=== PATIENT | female | born 1940 | race Caucasian/White ===

== ENCOUNTER 2018-08-17 01:32 | Outpatient (CLI) | payer MEDICARE, OTHER, SELFPAY ==
--- NOTE | 2018-08-17 13:46 | DI.MAMMO_ITS ---
SYMPTOMS/DIAGNOSIS: PERSONAL H/O BREAST CA, Z85.3, FAMILY H/O BREAST CA, SCREENING BILATERAL SCREENING MAMMOGRAM: Mammograms were interpreted according to the usual protocol including computer analysis with CAD system, tomosynthesis and C view imaging. Comparison is made with exams from 2009 through 2018. The patient is status post bilateral mastectomy. Breast implants are again noted, which appear intact. No masses or suspicious calcifications are seen. IMPRESSION: Category 1A, negative mammogram. Yearly screening mammography is recommended. [facility] ASSESSMENT OF FINDINGS: Negative. Category 1. Patient will receive a letter notifying them of these results. BI-RAD category A. The breasts are almost entirely fatty.
[2018-08-17 14:13] LABS: Absolute Basophil Count 0.01 k/cumm (0.0-0.2); Absolute Eosinophil Count 0.03 k/cumm (0.0-0.7); Absolute Lymphocyte Count 1.21 k/cumm (1.2-3.4); Absolute Monocyte Count 0.28 k/cumm (0.11-0.7); Absolute Neutrophil Count 2.49 k/cumm (1.2-6.7); Basophils % 0.2; Eosinophils % 0.7; HCT 40.1 % (36.0-46.0); HGB 12.9 g/dL (12.0-15.5); Lymphocytes % 30.1; Mean Corp. HGB Concentration 32.2 g/dL (32.0-36.0); Mean Corpuscular Hemoglobin 30.3 pg (27.0-33.0); Mean Corpuscular Volume 94.1 fL (80-95); Mean Platelet Volume 10.5 fL (8.0-11.0); Platelet Count 183 x1000/uL (130-400); RBC 4.26 m/cumm (4.00-5.20); RBC Distribution Width 12.8 % (11.7-14.6); White Blood Cell Count 4.02 k/cumm (4.4-10.8)
[2018-08-17 14:48] LABS: ESR 10 MM/HR (0-30)
[2018-08-17 16:15] LABS: Iron 104 ug/dL (50-175); Total Iron Binding Capacity 292 ug/dL (250-450); Transferrin Sat 36 % (15-50)
[2018-08-17 16:29] LABS: ALT 24 U/L (12-78); AST 20 U/L (15-37); Albumin 3.6 g/dL (3.4-5.0); Alkaline Phosphatase 85 U/L (46-116); Anion Gap 8.9 mmol/L (3-11); BUN 19 mg/dL (7-18); Bilirubin, Total 0.4 mg/dL (0.2-1.0); CO2 31.1 mmol/L (21.0-32.0); CREATININE 0.88 mg/dL (0.55-1.02); Calcium 9.9 mg/dL (8.5-10.1); Chloride 103 mmol/L (98-107); Ferritin 128 ng/mL (8-388); Glucose 130 mg/dL (70-100); Potassium 4.2 mmol/L (3.5-5.1); Sodium 143 mmol/L (136-145); TSH 0.57 uIU/mL (0.358-3.74); Total Protein 6.6 g/dL (6.4-8.2)
== END 2018-08-17 01:52 ==
PROVIDERS: PCP Family Medicine; Visit Provider Family Medicine
DX: Z12.31 Encounter for screening mammogram for malignant neoplasm of breast (principal); Z85.3 Personal history of malignant neoplasm of breast; D36.9 Benign neoplasm, unspecified site; R53.83 Other fatigue; R63.4 Abnormal weight loss
CPT/HCPCS: 36415; 77063; 77067; 80053; 85652; 82728; 83540; 83550; 84443; 85025

== ENCOUNTER 2018-11-02 08:52 | Outpatient (CLI) | payer MEDICARE, OTHER, SELFPAY ==
[2018-11-02 13:32] LABS: TSH (W/Ref FT4) 0.53 uIU/mL (0.358-3.74)
[2018-11-02 21:01] LABS: T3, Total 111 ng/dl (97-169)
== END 2018-11-02 09:12 ==
PROVIDERS: PCP Family Medicine; Visit Provider Family Medicine
DX: E04.9 Nontoxic goiter, unspecified (principal)
CPT/HCPCS: 36415; 84443; 84480

== ENCOUNTER 2019-08-09 11:37 | Outpatient (CLI) | payer MEDICARE, OTHER, SELFPAY ==
[2019-08-09 13:17] LABS: ALT 24 U/L (14-59); AST 22 U/L (15-37); Albumin 3.8 g/dL (3.4-5.0); Alkaline Phosphatase 83 U/L (46-116); Anion Gap 6.5 mmol/L (3-11); BUN 17 mg/dL (7-18); Bilirubin, Total 0.4 mg/dL (0.2-1.0); CO2 34.5 mmol/L (21.0-32.0); CREATININE 0.75 mg/dL (0.55-1.02); Calcium 9.6 mg/dL (8.5-10.1); Chloride 103 mmol/L (98-107); Glucose 89 mg/dL (74-106); Potassium 4.4 mmol/L (3.5-5.1); Sodium 144 mmol/L (136-145); TSH 0.59 uIU/mL (0.36-3.74); Total Protein 6.5 g/dL (6.4-8.2)
== END 2019-08-09 11:57 ==
PROVIDERS: PCP Family Medicine; Visit Provider Family Medicine
DX: R63.4 Abnormal weight loss (principal); R55 Syncope and collapse
CPT/HCPCS: 36415; 80053; 84443

== ENCOUNTER 2020-01-04 01:55 | Outpatient (CLI) | payer MEDICARE, OTHER, SELFPAY ==
--- NOTE | 2020-01-04 07:30 | DI.MAMMO_ITS ---
EXAM: MG MAMMO SCREENING 60 MIN DUR CLINICAL HISTORY: breast cancer screening, PERSONAL H/O BREAST CAZ85.3,Z12.39 TECHNIQUE: Mammograms were interpreted according to the usual protocol including computer analysis w [facility] CAD system, tomosynthesis and C-view imaging. COMPARISON: FINDINGS: There are bilateral mammary implants which obscure nearly all the breast parenchyma bilaterally. We were unable to obtained implant displaced views due to the severity small quantity remaining breast t issue. No gross mass or clumped microcalcification identified on the views obtained. No gross inter puja change from prior studies including August 2018 IMPRESSION: Limited view of remaining breast parenchyma due to bilateral mammary implants. No gross mass identif ied. BI-RADS Category 1 - Negative Breast Density - Category B - Scattered areas of fibroglandular density
== END 2020-01-04 02:15 ==
PROVIDERS: PCP Family Medicine; Visit Provider Family Medicine
DX: Z12.31 Encounter for screening mammogram for malignant neoplasm of breast (principal); Z85.3 Personal history of malignant neoplasm of breast; Z98.82 Breast implant status
CPT/HCPCS: 77063; 77067

== ENCOUNTER 2021-01-06 02:05 | Outpatient (CLI) | payer OTHER, SELFPAY ==
--- NOTE | 2021-01-06 07:45 | DI.MAMMO_ITS ---
Exam(s) MG MAMMO SCREENING 60 MIN DUR EXAM: MG MAMMO SCREENING 60 MIN DUR CLINICAL HISTORY: breast cancer screening, hx malignant neoplasm breast, Z85.3. TECHNIQUE: Bilateral full field digital CC and MLO mammographic images were obtained with 3D tomosyn thesis and utilizing computer aided detection (CAD). COMPARISON: Prior mammograms dating back to 2010, the most recent being December 2019.. We were unable to obtain implant displacement views due to this severely small quantity remaining heri ast tissue in this patient has had prior bilateral mastectomies. FINDINGS: Bilateral retropectoral silicone implants again noted. Some capsular calcifications seen left side There are no new obvious spiculated masses nor malignant appearing microcalcification groups. There is no new significant architectural distortion nor skin thickening-retraction. IMPRESSION: Limited study as described above. No obvious radiographic evidence of malignancy. BI-RADS Category 1 - Negative Breast Density - Category B - Scattered areas of fibroglandular density Breast density Category C or D implies that the patient has dense breast tissue. Dense breast tissue can make it harder to find cancer on a mammogram. Dense breast tissue is also associated with an incr eased risk of breast cancer. This information about the result of the mammogram report was provided to the patient to raise their awareness. Use this report when you speak with the patient about their risks for breast cancer, which includes their family history. At that time, you may recommend additional screening tests (Ultrasoun d or MRI) as these tests may add significant information. A negative radiographic report should not delay biopsy if a dominant or clinically suspicious mass is present. Up to ten percent of cancers are not identified on mammography. A negative report may reinforce clinical impression. Adenosis and dense breasts may obscure an underlying neoplasm. False positive reports average 6 to 10%. Patient will receive a letter notifying them of these results.
== END 2021-01-06 02:25 ==
PROVIDERS: PCP Family Medicine; Visit Provider Family Medicine
DX: Z12.31 Encounter for screening mammogram for malignant neoplasm of breast (principal); R92.8 Other abnormal and inconclusive findings on diagnostic imaging of breast; Z85.3 Personal history of malignant neoplasm of breast
CPT/HCPCS: 77063; 77067

== ENCOUNTER 2021-01-20 13:58 | Outpatient (REF) | payer OTHER, SELFPAY ==
[2021-01-21 15:48] LABS: C Diff PCR Negative (Negative)
== END 2021-01-20 13:59 | disposition home or self-care (01) ==
LOC: LBN 13:58
PROVIDERS: PCP Family Medicine; Visit Provider Family Medicine
DX: R19.7 Diarrhea, unspecified (principal)
CPT/HCPCS: 87329; 87493; 86674; 87177

== ENCOUNTER → 2021-03-04 09:44 | Outpatient (BNVA) | payer OTHER, SELFPAY | PROVIDERS: PCP Family Medicine; Referring Provider Family Medicine; Visit Provider Surgery | DX: R19.7 Diarrhea, unspecified (principal); T85.9XXA Unspecified complication of internal prosthetic device, implant and graft, initial encounter; Z85.3 Personal history of malignant neoplasm of breast; Z98.82 Breast implant status | CPT/HCPCS: 99212; 99214 ==

== ENCOUNTER 2021-03-24 03:32 | Outpatient (CLI) | payer OTHER, SELFPAY ==
[2021-03-24 10:39] LABS: Source Nasal/Nares
[2021-03-24 13:08] LABS: COVID-19 PCR Negative (Negative)
== END 2021-03-24 03:33 | disposition home or self-care (01) ==
LOC: LBO 03:32
PROVIDERS: PCP Family Medicine; Visit Provider Surgery
DX: Z20.822 Contact with and (suspected) exposure to COVID-19 (principal); Z01.818 Encounter for other preprocedural examination
CPT/HCPCS: 87635

== ENCOUNTER 2021-03-26 07:02 | Day surgery (SDC) | payer OTHER, SELFPAY ==
--- NOTE | 2021-03-26 06:18 | W.ANESPRE ---
General Info Date of Service Date Performed: 03/26/21 Height: 5 ft 5 in Weight: 51.369 kg Body Mass Index (BMI): 18.8 Surgical Procedure: Operation Date: 03/26/21 08:20 Proposed Procedures Side Surgeon p Colonoscopy Renee Trujillo MD Meds Allergies and Home Medications Allergies Allergy/AdvReac Type Severity Reaction Status Date / Time Penicillins Allergy Unknown Skin Rash Unverified 03/26/21 07:32 Home Medication Medication Instructions Recorded vvecatm-[id number]-tibx 1 ea PO DAILY 03/22/13 multivitamin 1 ea PO DAILY 03/22/13 bisacodyl 5 mg tablet,delayed 5 mg PO ONCE #4 tab 03/04/21 release polyethylene glycol 3350 17 gram 255 g PO DAILY #15 ea 03/04/21 oral powder packet Current Visit Medications: Current Medications Generic Name Dose Route Start Last Admin Trade Name Freq PRN Reason Stop Dose Admin Ringer's Solution 1,000 mls @ 80 mls/hr 03/26/21 06:00 IV 04/24/21 23:59 INFUSION MALLORY IV Miscellaneous Supplies 1 each 03/26/21 06:00 Iv Access IV 04/24/21 23:59 DIRECTED MALLORY Sodium Chloride 0 ml 03/26/21 06:00 Normal Saline Flush 10 Ml Syr IV 04/24/21 23:59 PRN PRN Sodium Chloride 0 ml 03/26/21 06:00 Normal Saline 10 Ml Vial IJ 04/24/21 23:59 DIRECTED PRN Sterile Water 0 ml 03/26/21 06:00 Water,Injection,Sterile 10 Ml Vial IJ 04/24/21 23:59 DIRECTED PRN PFSH Active Problems Active Problems: Problem Status Onset Code Allergic rhinitis J30.9 Cystocele, midline N81.11 Chest pain R07.9 Generalized osteoarthrosis M15.9 Malignant neoplasm of female breast 06/10/88 C50.919 Mitral valve regurgitation 04/03/13 I34.0 Osteopenia M85.80 Rectocele N81.6 Tubular adenoma D36.9 Urgency incontinence 07/17/15 N39.41 Sensorineural hearing loss (SNHL) of both ears H90.3 Diarrhea R19.7 History of appendectomy Z90.49 History of bilateral salpingo-oophorectomy Z90.79, Z90.722 Status post abdominal hysterectomy Z90.710 Status post bilateral mastectomy Z90.13 Status post breast augmentation Z98.82 Status post tonsillectomy Z90.89 Knee pain M25.569 Generalized osteoarthrosis M15.9 Medical History Medical History Allergic rhinitis Chest pain +ETT; neg. MPI Cystocele, midline Diarrhea Generalized osteoarthrosis Heberden's nodes and bilateral knee pain Malignant neoplasm of female breast (06/10/88) right; bilateral mastectomy and reconstruction Mitral valve regurgitation (04/03/13) Osteopenia Rectocele Sensorineural hearing loss (SNHL) of both ears Tubular adenoma 11/19/14; DR. TRUJILLO Urgency incontinence (07/17/15) Surgical History Surgical History Abdominal hysterectomy (~2002) Appendectomy AGE 16 Augmentation mammoplasty (~1986) S/P mastectomy for breast cancer Bilateral salpingectomy with oophorectomy (~2002) Breast, Mastectomy Bilateral Cataract extraction status, left eye (~06/14/18) Cataract extraction status, right eye (~05/24/18) S/P colonoscopy (~11/19/14) Tonsillectomy Tobacco Smoking/Tobacco Use Status: Never Passive smoking exposure: Yes (a long time ago) Alcohol Alcohol Intake: current Alcohol intake frequency: holidays/special occasions only Alcohol type: wine Substance Use Substance use: Never Substance use type: does not use Counseling given: Yes Counseling provided: none Vital Signs and Lab Results Vital Signs Most Recent Vital Signs in EMR: Temp Pulse Resp BP Pulse Ox 36.5 C 61 16 118/67 98 03/26/21 07:35 03/26/21 07:35 03/26/21 07:35 03/26/21 07:35 03/26/21 07:35 Lab Results Blood Type / Crossmatch: No Data to Display Complete Blood Count: No Data to Display Complete Metabolic Panel: No Data to Display Liver Function Panel: No Data to Display Coagulation Panel: No Data to Display Cardiac Panel: No Data to Display Arterial Blood Gas: No Data to Display Venous Blood Gas: No Data to Display Pancreas Panel: No Data to Display Thyroid Panel: No Data to Display Infectious Disease: Coronavirus (COVID-19)(PCR) Negative (Negative) 03/24/21 08:18 03/24/21 Coronavirus 2019 Source Nasal/Nares 03/24/21 08:18 03/24/21 Blood Cultures: No Data to Display Toxicology Panel: No Data to Display Imaging and Studies Imaging and Studies Echocardiogram Summary: 2018: LVEF 60-65%, some parameters suggest diastolic dysfunction, Mild MR, LA mild dilation, normal RVFxn. Anesthesia Assessment and Plan Anesthesia History Personal History: No History of Anesthesia Complications Family History: No Family History of Anesthesia Complications Exercise Tolerance Exercise Tolerance: Metabolic Equivalents>4 Pertinent Negatives Pertinent Negatives: No Symptoms of GERD, No Major Cardiovascular Symptoms or Complaints, No Major Pulmonary Symptoms or Complaints and No History of CVA/TIA Cardiac & Pulmonary Exam Cardiac Exam: Normal S1/S2 Heart Sounds Pulmonary Exam: Clear Bilateral Breath Sounds Airway Exam Known Difficult Airway: No Mallampati Class: 2 Mouth Opening: Normal (> 3cm) Thyromental Distance: Greater than 3 cm Neck Range of Motion: Full ROM Neck Circumference: Normal Teeth Condition: Normal Dentition and Removable Dentures/Plates Upper ASA Classification ASA Score: ASA 2 Emergency Case?: No NPO Status NPO Status: NPO Clears >2 hours, Solids >8 hours Anesthesia Plan Resuscitation Status: Full Code Anesthesia Technique: General Anesthesia Airway Planned: Natural Airway Monitors Used: Standard Monitors Preoperative Comments:: 80 yo female with history of tubular adenoma in 2015, here for repeat colonoscopy. Sig PMHx: breast CA (mastectomies 1998 with implants), MVP, .
--- NOTE | 2021-03-26 06:39 | W.COLOREPORT ---
Colonoscopy Report Date of procedure: 03/26/21 Pre-op diagnosis general: Diarrhea, Hx of colon polyps Procedure: Colonoscopy Surgeon: Renee Pruitt Anesthesia Type: General:No Airway Complications: None Disposition: same day Indications: Ms Shirley is a pleasant 80-year-old female who was last colonoscopy was in 2014. At that time she had 2 tubular adenomas. In December she developed some loose to watery diarrhea. It started after eating some robert lettuce. It was not a daily occurrence it was happening about once a week. She could never pinpoint a specific food. She has had no hematochezia or melena. She has had no weight loss or abdominal pain. She has not had another episode since February 16. She has no family history of colon cancer. We discussed giving it a little bit more time and just waiting to see if this diarrhea resolves on its own, versus doing a colonoscopy. Her symptoms do not fit that of a colon mass. She is a very healthy 80-year-old so certainly a colonoscopy would be reasonable. She would like to proceed with scheduling the colonoscopy. If she changes her mind she will call us and cancel. Risks, benefits and complications have been reviewed. Complications include but are not limited to bleeding, pain, perforation, missed small lesion/polyp, sore throat, aspiration and adverse reaction to the medications. Questions were entertained and answered to their satisfaction and they wished to proceed. No guarantees were given or implied. Proceed with colonoscopy under sedation. Prep: Miralax/Dulcolax Procedure Start Time: 08:12 Procedure End Time: 08:55 Retraction Time: 30 minutes Findings: 2 small polyps lipoma Procedure Description: After informed consent was obtained the patient was taken to the procedure room and placed in a left decubitous position. Monitors were applied and a time out was done. The patients name, date of , procedure, allergies to medications and metal in their body was reviewed. The patient was then sedated. Once sedated and comfortable a rectal exam was done. External exam was normal. Internal exam revealed a normal sphincter tone and no palpable masses. The scope was then introduced and retro-flexed. No internal hemorrhoids, polyps or masses were identified on retro-flexion. The scope was then advanced to the cecum without difficulty. The ileocecal vlave and appendiceal orifice were identified. The prep was good. There was a lession on the ileocecal vlave which looked like a pedunculated lipoma. It was removed with a hot snare. The scope was then slowly retracted over 30 minutes back into the rectum. Polyps were removed with hot snare in the ascending colon and with cold forceps in the rectum. There was no diverticulosis noted. The scope was removed and the patient was woken up and taken back to Same day surgery in stable condition. The patient tolerated the procedure well and there were no immediate complications. Follow up: The patient should follow up in the office in 2 weeks
--- NOTE | 2021-03-26 06:40 | PDOC.DSDIS_ITS ---
Discharge Plan Disposition Patient Disposition: HOME Condition: Good Discharge Details Reason For Visit: Colonoscopy Attending Provider: Renee Pruitt Primary Care Provider: Melissa Myers Home Meds and New Rx's Prescriptions: Continued multivitamin 1 EACH tablet 1 ea PO DAILY RF: 0 bfrchxb-qejrghuwh-tyqe 1 EACH tablet 1 ea PO DAILY RF: 0 Discontinued bisacodyl [Dulcolax (bisacodyl)] 5 mg tablet,delayed release (DR/EC) 5 mg PO ONCE Qty: 4 RF: 0 polyethylene glycol 3350 17 gram powder in packet 255 g PO DAILY Qty: 15 RF: 0 Discharge Instructions Additional Instructions: Findings: 2 polyps Follow up: 2 weeks in the office Please call if you develop: fevers >101.5 Nausea or Vomiting Abdominal pain that is not transient Rectal bleeding that is more then a tbsp A hard abdomen and inability to pass gas DAY SURGERY UNIT POST ENDOSCOPY INSTRUCTIONS Instructions for everyone who is given Anesthesia: For your safety, please do the following for the next 24 Hours: a. Do not drive or operate dangerous equipment b. Do not drink alcohol beverages or use any recreational drugs for the first 24 hours or while taking pain medications. The medications in your body may have a reaction that can be dangerous. c. Do not make any important decisions or sign any important papers 1. Generally there are no restrictions on your activity after a day or so has gone by, but you may feel a bit fatigued for a few days. 2. After you arrive home you may have a light meal and return to a normal diet as you can tolerate it without feeling sick to your stomach. 3. After surgery, you may feel pain or discomfort. This should be only transient, but if it persists please contact your doctor. 4. If there are any questions regarding the findings of your procedure, please feel free to contact your doctor. 6. If you are unable to contact your doctor with a problem, contact the hospital at [phone]. 7. Continue all your regular medications unless directed otherwise. I understand the above instructions and have no questions. Signature of Patient or Responsible Adult Escort Date/Time Name of Responsible Adult Escort Signature of Nurse Date/Time Referrals: Renee Pruitt MD [ [facility] STAFF PHYSICIAN] - 04/11/21 10:15 am Activity:: Activity as Tolerated Diet:: As Tolerated Discharge Orders Discharge Orders: Discharge Order (Routine); Ordered 03/26/21 Ordered By: Renee Pruitt
[2021-03-26 07:35] VITALS: BP 118/67; PULSE 61; RESP 16; TEMP 36.5; O2SAT 98
[2021-03-26] MEDS: Lactated Ringers 1,000 ML 80 ML IV (07:50)
[2021-03-26 08:02] VITALS: BMI 18.8
--- NOTE | 2021-03-26 08:29 | BOWEL_PTH ---
PATIENT: Laurie Shirley LOC: [facility] U#:[id number] AGE/SX: 80/F ROOM: RE03/26/[address]: Renee Pruitt MD : 1940 BED: DIS: 03/26/2021 SPEC #: [id number] RECD: 03/26/21 12:42 STATUS: GRETA LAZCANO #: [id number] TYRON: 03/26/21 08:[address]: Renee Pruitt DEPT: Surgical Specimen RECD BY: Christi Reed ENTERED: 03/26/21 12:43 SP TYPE: Bowel OTHR DR: Melissa Myers MD Tissues: 1 - BIOPSY BOWEL 2 - BIOPSY BOWEL 3 - BIOPSY BOWEL Procedures: GROSS AND MICRO LEVEL 4 Comments: [id number]
--- NOTE | 2021-03-26 09:03 | W.ANESPOSTOP ---
Postoperative Evaluation Date, Time and Location Date Performed: 03/26/21 Time Performed: 09:03 Patient Location: Day Surgery Unit Vital Signs Most Recent Imported Vital Signs: Most Recent Vital Signs Temp Pulse Resp BP Pulse Ox 36.5 C 61 16 118/67 98 03/26/21 07:35 03/26/21 07:35 03/26/21 07:35 03/26/21 07:35 03/26/21 07:35 Most Recent Manually Entered Vital Signs: Adult Blood Pressure: 111/67 Heart Rate: 64 Respirations: 14 Oxygen Saturation (%): 98 Temperature (C): 36 C Pain Score (0-10 Scale): 0 Pain Score Most Recent Pain Score: Most Recent Pain Score Pain Level 0 03/26/21 07:35 Assessment Mental Status: Awake (Alert & Oriented to Patient Baseline) Airway and Respiratory Function: Patent airway with normal (patient baseline) respiratory exam Cardiovascular Function: Hemodynamically Stable Hydration Status: Adequately Hydrated Nausea & Vomiting: No Nausea or Vomiting Pain: Pt. Denies Any Pain Peripheral Nerve Block: Patient did not receive a nerve block
[2021-03-26 09:04] VITALS: BP 111/67; PULSE 64; RESP 14; TEMPC 36; O2SAT 98
[2021-03-26 09:05] VITALS: BP 111/67; PULSE 63; RESP 14; TEMP 36; O2SAT 98
[2021-03-26 09:35] VITALS: BP 145/77; PULSE 52; RESP 14; TEMP 36.1; O2SAT 98
== END 2021-03-26 10:00 | disposition home or self-care (01) ==
PROVIDERS: PCP Family Medicine; Visit Provider Surgery
PROC: 0DJD8ZZ Inspection of Lower Intestinal Tract, Via Natural or Artificial Opening Endoscopic (ICD-10-PCS; CPT 45378; principal; 2021-03-26 08:15)
DX: R19.7 Diarrhea, unspecified (principal); D17.5 Benign lipomatous neoplasm of intra-abdominal organs; D12.2 Benign neoplasm of ascending colon; D12.8 Benign neoplasm of rectum
CPT/HCPCS: 45385; 88305; J2001

== ENCOUNTER → 2021-04-11 09:57 | Outpatient (BNVA) | payer OTHER, SELFPAY | PROVIDERS: PCP Family Medicine; Referring Provider Family Medicine; Visit Provider Surgery | DX: Z48.815 Encounter for surgical aftercare following surgery on the digestive system (principal); D12.6 Benign neoplasm of colon, unspecified; Z98.82 Breast implant status | CPT/HCPCS: 99212 ==

== ENCOUNTER 2021-09-10 17:38 | Emergency (ER) | payer MEDICARE, SELFPAY ==
[2021-09-10] VITALS (39 sets, daily range): BP systolic 145–187; BP diastolic 67–131; PULSE 58–72; RESP 9–23; TEMP 37; O2SAT 97–100
--- NOTE | 2021-09-10 17:30 | RT.EKG_ITS ---
APPROVED REPORT Exam: Resting ECG Reason for Exam: headache possible stroke Patient Location: E HR:65 bpm ECG Measurements Heart Rate 65 AXIS TX 246 P 84 QRSd 61 QRS 70 QT 390 T 66 QTc 405 Conclusion Sinus rhythm...normal P axis, V-rate 60- 99 Prolonged TX interval...TX >220, V-rate 50- 90 Consider left ventricular hypertrophy...(S V1+R V5/V6) >3.25mV normal sinus rhtyhm, normal axis, non ischemic
--- NOTE | 2021-09-10 18:00 | DI.CT_ITS ---
Exam(s) CT HEAD WO EXAM: CT HEAD WO CLINICAL HISTORY: change in speech, resolved, on eliquis. TECHNIQUE: Imaging Protocol: Axial computed tomography images with coronal and sagittal reformatted images were created and reviewed COMPARISON: No exams were available for comparison FINDINGS: Ventricles and Extra axial spaces: Normal in size and morphology for the patient's age. Hemorrhage: None. Cerebral parenchyma: Mild, consistent with the patient's age. Significant atrophy. Mild white cassandra er changes consistent with small vessel disease. Midline shift: None. Brainstem/Cerebellum: Normal. Calvarium: Normal. Visualized Paranasal sinuses/Mastoids: Clear. IMPRESSION: No acute abnormality. RADIATION DOSE DELIVERED: 643.93mGy.cm Total DLP 643.93mGy.cm Total DLP DATA REPOSITORY: All CT scans at this facility are submitted to the National Radiology Data Registry (NRDR) Dose Index Registry (DIR) with the [employer] (A[employer]). RADIATION OPTIMIZATION: All CT scans at this facility use at least one of these dose optimization te chniques: automated exposure control; mA and/or kV adjustment per patient size (includes targeted exa ms where dose is matched to clinical indication); or iterative reconstruction.
[2021-09-10 18:24] LABS: Abs Immature Grans 0.01 10^3/uL (0.0-0.06); Absolute Basophil Count 0.02 10^3/uL (0.0-0.2); Absolute Eosinophil Count 0.07 10^3/uL (0.0-0.7); Absolute Monocyte Count 0.43 10^3/uL (0.1-0.8); Absolute Neutrophil Count 2.13 10^3/uL (1.2-6.7); Basophils % 0.5; Eosinophils % 1.7; HCT 37.1 % (36.0-46.0); HGB 11.7 g/dL (11.2-15.7); Immature Grans % 0.2; Lymphocytes % 34.5; MCH 30.1 pg (27.0-33.0); MCHC 31.5 % (32.0-36.0); MCV 95.4 fL (80-95); Monocytes % 10.6; Neutrophils % 52.5; Nucleated RBC 0 %; Platelet Count 207 10^3/uL (130-400); RBC 3.89 10^6/uL (3.93-5.22); RDW-SD 45.3 fL; WBC 4.06 10^3/uL (4.4-10.8)
--- NOTE | 2021-09-10 18:35 | W.ED.GENAD ---
Discharge Plan Disposition Patient Disposition: HOME Condition: Improving Discharge Details Clinical Impression: Headache Primary Care Provider: Mika Matute ED Provider: Avinash Tomas Home Meds and New Rx's Prescriptions: Continued multivitamin 1 EACH tablet 1 ea PO DAILY 0RF wpxlqzy-hetglvxya-gral 1 EACH tablet 1 ea PO DAILY 0RF Eliquis 5 mg tablet 10 mg PO BID 0RF Discharge Instructions Instructions: General Headache (ED) Additional Instructions: Please follow-up with your primary care physician and general surgeon. Please return to the emergency department for any worsening symptomatology including headache nausea vomiting change in speech change in sensation or strength. Continue with your medications as prescribed. Medical Decision Making 81-year-old female presents with resolved headache and possible change in speech that was noted yesterday by family, he is on Eliquis for bilateral PE and left lower extremity DVT, alert and oriented moving all extremities normal speech no recent trauma afebrile nonmeningeal. Consider tension type headache versus migraine versus less consider intracranial hemorrhage in the setting of anticoagulation versus less likely CVA versus less likely TIA. Less also consider UTI or metabolic derangement given recent admission to the hospital. Given age and symptomatology will obtain CT head to screen for intracranial hemorrhage. Pending results consider home with close neurologic follow-up versus admission. Patient resting comfortably no acute distress neurologically intact, CT unremarkable for intracranial hemorrhage or edema. Although leukoesterase positive no other indications that there is urinary tract infection, no urinary symptoms. Family and patient comfortable going home. Will follow with primary surgeon and primary care physician. Given strict return precautions for any further symptomatology specifically neurologic symptomatology. HPI General Date/Time Provider Initiated Documentation: 09/10/21 18:05. HPI Narrative: 81-year-old female recent left breast implant rupture, with implant removal at [facility], bilateral JOSE LUIS drains to chest, complicated by left lower extremity DVT and PEs, recently started on Eliquis, presents with 1 day of headache gradual onset and endorsing the family felt that her speech was different today. Denies weakness or numbness, denies change in gait/stability. Denies chest pain or breath. No trauma. Related Data Home Medications Medication Instructions Recorded Confirmed edrvxwe-[id number]-ymrd tablet 1 ea PO DAILY 03/22/13 09/10/21 multivitamin 1 ea PO DAILY 03/22/13 09/10/21 apixaban 5 mg tablet (Eliquis) 10 mg PO BID 09/10/21 09/10/21 Allergies Allergy/AdvReac Type Severity Reaction Status Date / Time Penicillins Allergy Unknown Skin Rash Unverified 09/10/21 17:49 General Stated Complaint: CVA/TIA HORTENCIA: 2 Review of Systems Narrative: Review of Systems Constitutional: negative Eyes: negative ENT: negative Cardiovascular: negative Respiratory: negative Gastrointestinal: negative : negative Musculoskeletal: negative Skin: negative Neurologic: Headache possible change in speech now resolved Psych: negative PFSH All Active Problems (Updated 08/11/21 @ 08:30 by Mika Matute MD) Headache (Acute) Pulmonary emboli (Chronic) 09/2021-bilateral, diagnosed at [facility],. occurred Postoperatively Breast implant status (Acute) Allergic rhinitis (Acute) Cystocele, midline (Acute) Chest pain (Acute) +ETT; neg. MPI Generalized osteoarthrosis (Acute) Heberden's nodes and bilateral knee pain Malignant neoplasm of female breast (Acute 06/10/88) 1985-right; bilateral mastectomy and reconstruction Mitral valve regurgitation (Acute 04/03/13) Rectocele (Acute) Tubular adenoma (Acute) 11/19/14; DR. TRUJILLO 2020, tubular adenoma X 2 Urgency incontinence (Acute 07/17/15) Sensorineural hearing loss (SNHL) of both ears (Acute) Status post bilateral mastectomy (Acute) Surgical History (Updated 08/11/21 @ 08:30 by Mika Matute MD) Abdominal hysterectomy (~2002) Appendectomy AGE 16 Augmentation mammoplasty (~1986) S/P mastectomy for breast cancer Bilateral salpingectomy with oophorectomy (~2002) Breast, Mastectomy Bilateral Cataract extraction status, left eye (~06/14/18) Cataract extraction status, right eye (~05/24/18) S/P colonoscopy (~03/26/21) 11/19/14 Tonsillectomy Family History Mother , AGE 54 Neoplasm BREAST Father , AGE 59 Neoplasm LYMPHNODE SARCOMA Sister Neoplasm CERVIX/ RIGHT LUNG Brother , AGE 65 Neoplasm LUNG Brother Heart disease 4 [employer] AND PACEM[employer]ER Brother No problems noted. Sister Diabetes Neoplasm AGE 52 AND 69 BREAST Son Asthma Daughter Depression Nephew Primary cancer of bone marrow Paternal family history Alzheimer disease Maternal Family history Cancer 8 family members Maternal Grandfather , AGE 52 SURGICAL COMPLICATIONS No problems noted. Paternal Grandfather , AGE 64 Lung cancer Maternal Grandmother , AGE 58 Cancer Paternal Grandmother , AGE 81 OLD AGE No problems noted. Social History (Updated 08/11/21 @ 16:21 by Tara Hyde) Smoking/Tobacco Use Status: Never Second Hand Exposure: Yes Smoking risk assessment performed?: Yes Alcohol Intake: current Alcohol Intake frequency: holidays/special occasions only Drug use: Never Substance use type: does not use Counseling given: Yes Counseling provided: none Household members: spouse Housing: house Communication Needs: None Do you need help understanding health information?: Never Pets and animals: No Sexually active: No Do you think of yourself as: straight/heterosexual Current gender identity: female What is your relationship status?: How often do you talk on the phone with friends or family?: twice per week How often do you get together with friends or relatives?: once per week How often do you attend mandaeism or lutheran services?: 4 or more times per year Do you belong to any clubs or organized social groups?: no Panel score (0-1 are the most socially isolated patients): 3 What type of physical activity do you participate in: walking Duration: 15-30 minutes/day Audrey/Gnosticism: Jew Special audrey needs: No Seatbelt use: always Drive intox or ride w/intox milk driver: No Do you feel safe at home: Yes Do you feel safe in your relationship?: Yes Additional Social history: Patient verbalized Sometimes I get yelled at but never hit; RN reinforced that should patient feel unsafe, services to help are available and she can contact her MD for assistance as well. Patient didn't express any immediate need. Exam Narrative Exam Narrative: Physical Examination General: alert, awake, cooperative, resting comfortably, no acute distress HEENT: normocephalic, atraumatic; PERRL, EOM intact, conjunctiva normal; no nasal discharge; moist mucous membranes, oral and pharyngeal mucosa normal, tolerating secretions Neck: supple, trachea midline; full ROM Chest: normal to inspection; bilateral JOSE LUIS drains approximately one quarter full on left sanguinous; no chest crepitus, good chest wall excursion Respiratory: normal respiratory effort, speaking in full sentences, clear to auscultation, no wheezing, rales or rhonchi Cardiac: regular rate, regular rhythm, S1S2 intact, no murmurs rubs or gallops GI: abdomen soft, non-tender, non-distended; no palpable mass or hepatosplenomegaly Skin: no lesions, rashes or trauma appreciated Neuro: AAOx3, normal speech, moving all extremities; cranial nerves II 12 intact, 5 out of 5 strength upper and lower extremities, no truncal ataxia Extremities: No peripheral edema Psych: Appropriate mood and affect Course Vital Signs Vital signs: Vital Signs Temperature 37.0 C 09/10/21 17:44 Pulse 65 09/10/21 17:44 Respiratory Rate 16 09/10/21 17:44 Blood Pressure 178/76 H 09/10/21 17:44 Temperature 37.0 C 09/10/21 17:44 Temperature Source Skin 09/10/21 17:44 Pulse 65 09/10/21 17:44 Respiratory Rate 12 09/10/21 18:22 Respiratory Effort Non-Labored 09/10/21 18:22 Respiratory Depth Normal 09/10/21 18:22 Respiratory Pattern Normal 09/10/21 18:22 Blood Pressure 178/76 H 09/10/21 17:44 Blood Pressure Position Supine 09/10/21 17:44 Oxygen Delivery Method Room Air 09/10/21 17:44 Oxygen Flow Rate 0 09/10/21 17:44 Pain Level 0 09/10/21 17:44 Lab/Test Results Lab/Test Results: Laboratory Tests Range/Units 09/10/21 18:15 WBC (4.4-10.8) 10^3/uL 4.06 L RBC (3.93-5.22) 10^6/uL 3.89 L Hgb (11.2-15.7) g/dL 11.7 Hct (36.0-46.0) % 37.1 MCV (80-95) fL 95.4 H MCH (27.0-33.0) pg 30.1 MCHC (32.0-36.0) % 31.5 L RDW (11.7-14.6) % 13.0 Plt Count (130-400) 10^3/uL 207 MPV (8.0-11.0) fL 10.0 Immature Gran % 0.2 Neutrophils % 52.5 Lymphocytes % 34.5 Monocytes % 10.6 Eosinophils % 1.7 Basophils % 0.5 Nucleated RBC % % 0 Absolute Neutrophils (1.2-6.7) 10^3/uL 2.13 Absolute Lymphocytes (1.2-3.4) 10^3/uL 1.40 Absolute Monocytes (0.1-0.8) 10^3/uL 0.43 Absolute Eosinophils (0.0-0.7) 10^3/uL 0.07 Absolute Basophils (0.0-0.2) 10^3/uL 0.02
[2021-09-10 18:40] LABS: ALT 29 U/L (14-59); AST 24 U/L (15-37); Albumin 3.2 g/dL (3.4-5.0); Alkaline Phosphatase 80 U/L (46-116); Anion Gap 5.9 mmol/L (3-11); BUN 25 mg/dL (7-18); Bilirubin, Total 0.3 mg/dL (0.2-1.0); CO2 31.1 mmol/L (21.0-32.0); CREATININE 0.8 mg/dL (0.55-1.02); Calcium 9.4 mg/dL (8.5-10.1); Chloride 105 mmol/L (98-107); Glucose 99 mg/dL (74-106); Potassium 4.3 mmol/L (3.5-5.1); Sodium 142 mmol/L (136-145); Total Protein 6.6 g/dL (6.4-8.2)
--- NOTE | 2021-09-10 19:26 | DI.VRAD_ITS ---
PROCEDURE INFORMATION: Exam: CT Head Without Contrast Exam date and time: 09/10/2021 6:07 PM Age: 81 years old Clinical indication: Other: Change in speech, resolved, on eloquis TECHNIQUE: Imaging protocol: Computed tomography of the head without contrast. Radiation optimization: All CT scans at this facility use at least one of these dose optimization techniques: automated exposure control; mA and/or kV adjustment per patient size (includes targeted exams where dose is matched to clinical indication); or iterative reconstruction. COMPARISON: No relevant prior studies available. FINDINGS: Brain: Slight prominence of cerebral sulci reflects mild cerebral atrophy. A few poorly marginated hypodensities seen throughout the deep and periventricular white matter of both cerebral hemispheres are consistent with microvascular ischemic changes. Brainstem and cerebellum are unremarkable and there is no evidence of acute infarct or intracranial hemorrhage. Cerebral ventricles: Dilatation of the 3rd and lateral ventricles is commensurate with the degree of cerebral atrophy. Paranasal sinuses: Grossly clear throughout. Mastoid air cells: Grossly clear bilaterally. Bones/joints: Bony calvarium and skull base are intact and no acute fractures are detected. Soft tissues: Unremarkable. IMPRESSION: Mild atrophy and probable microvascular ischemic changes with no evidence of acute infarct, recent hemorrhage or hydrocephalus. No acute intracranial process is detected. Dictated and Authenticated by: Hang Griffith MD. Ordering:SRIDHAR Da Silva MD
[2021-09-10 20:31] LABS: Bilirubin Negative (Negative); Blood Negative (Negative); Clarity Clear (Clear); Glucose Negative (Negative); Ketones Negative (Negative); Leukocyte Esterase Moderate (Negative); Nitrite Negative (Negative); Urobilinogen 0.2 EU/dL (Up TO 0.2); pH 6.5 (5-8)
[2021-09-10 20:51] LABS: Bacteria Few HPF (Negative); C & S Indicated? No/Sq. Contamination; Casts Negative LPF (Negative); Crystals Negative HPF (Negative); Epithelial Cells Moderate HPF (Negative); Mucus Negative (Negative); RBC Negative HPF (0-2)
== END 2021-09-10 21:40 | disposition home or self-care (01) ==
PROVIDERS: Emergency Provider Emergency Medicine; PCP Family Medicine
DX: R51.9 Headache, unspecified (principal); R47.81 Slurred speech; Z79.899 Other long term (current) drug therapy; Z79.01 Long term (current) use of anticoagulants
CPT/HCPCS: 36416; 80053; 82962; 93005; 99284; 70450; 81003; 81015; 85025; 93010; 99283

== ENCOUNTER 2021-09-15 19:09 | Outpatient (REF) | payer MEDICARE, SELFPAY | END 2021-09-15 19:10 | disposition home or self-care (01) | LOC: LBN 19:09 | PROVIDERS: PCP Family Medicine; Visit Provider Family Medicine | DX: R31.9 Hematuria, unspecified (principal) | CPT/HCPCS: 87086 ==

== ENCOUNTER 2021-10-01 01:10 | Outpatient (CLI) | payer MEDICARE, SELFPAY ==
--- NOTE | 2021-10-01 07:00 | DI.US_ITS ---
Exam(s) US CAROTID EXAM: US CAROTID CLINICAL HISTORY: possible tia,altered mental status,g45.9,r41.82,pe. TECHNIQUE: Ultrasound carotids performed using grayscale, color-flow, and spectral Doppler imaging. COMPARISON: US Cardiac from 08/04/2017 FINDINGS: CAROTID ARTERIES: There is some plaque in both common carotid arteries as well as to the level of bot h carotid bifurcations and proximal internal carotid arteries bilaterally. On the right side there a re no significant elevated velocities, indicating amount of stenosis less than 50 percent. On the left side there is mildly elevated velocity in the distal ICA in the neck with peak systolic v elocity 121 cm/sec. This implies stenosis of 50-69 percent. VERTEBRAL ARTERIES: Antegrade flow is demonstrated in both vertebral arteries. Measurements: R Bulb: 59.8cm/s PS / 16.1cm/s ED R CCA: 53.3cm/s PS / 9.6cm/s ED R ECA: 73.9cm/s PS / 10.9cm/s ED R ICA Prox: 58.5cm/s PS /12.2cm/s ED R ICA Mid: 80.3cm/s PS / 16.7cm/s ED R ICA Distal: 97.7cm/s PS /24.4cm/s ED R Vert: 68.1cm/s PS / 14.8cm/s ED R SVR: 1.83 R DVR: 2.54 L Bulb: 65.6cm/s PS /12.9cm/s ED L CCA: 54.6cm/s PS / 9.6cm/s ED L ECA: 82.3cm/s PS /9cm/s ED L ICA Prox:58.5cm/s PS / 12.2cm/s ED L ICA Mid: 84.2cm/sPS / 23.8cm/s ED L ICA Distal: 120.7cm/s PS / 36.9cm/s ED L Vert: 47.7cm/s PS / 7.2cm/s ED L SVR: 2.21 L DVR: 3.84 IMPRESSION: Some plaque evident bilaterally carotid arteries, slightly more so on the left side where there is es timated 50-69 percent stenosis in the proximal internal carotid artery. Lesser amount of stenosis (less than 50 percent) is demonstrated on the right side. The great flow demonstrated in both vertebral arteries. Criteria for Carotid Stenosis: Normal: ICA PSV <125 cm/s no plaque or intimal thickening is visible. <50% stenosis: ICA PSV <125 cm/s and plaque or intimal thickening is visible. 50-69% stenosis: ICA PSV is 125-250 cm/s and plaque is visible. >70% stenosis to near occlusion: ICA PSV >250 cm/s with visible plaque and luminal narrowing. DATA REPOSITORY:
--- NOTE | 2021-10-01 13:15 | DI.US_ITS ---
APPROVED REPORT EXAM: Comprehensive 2D, Doppler, and color-flow Echocardiogram Patient Location: [facility] Professional: Leena Coates RDCS (AE) Indications: Recent PE, r/o RV Strain, TIA, Altered mental status Other Information Study Quality: Fair. Technically limited study due to body habitus recent surgery. Conclusion Normal left ventricular wall thickness and chamber size. Estimated ejection fraction is 60 to 65%. Wall motion is normal Normal right ventricular size and systolic function Both atria are normal in size The aortic valve is sclerotic without stenosis or regurgitation Thickened mitral leaflets with trace to mild regurgitation Normal tricuspid valve with trace to mild regurgitation Mid right ventricular systolic pressure is 28 mmHg Wall motion Left Ventricle The left ventricle is normal size. The left ventricular systolic function is normal. The left ventric ular ejection fraction is within the normal range. There is normal left ventricular wall thickness. T here is normal LV segmental wall motion. There is no ventricular septal defect visualized. LVEF is 60 -65%. Right Ventricle The right ventricle is normal size. The right ventricular systolic function is normal. The RVSP is 27 .9 mmHg. Atria The left atrium size is normal. The right atrium size is normal. The interatrial septum is intact wit h no evidence for an atrial septal defect. Aortic Valve The aortic valve is sclerotic Number of aortic valve leaflets could not be assessed. There is no aort ic valvular stenosis. No aortic regurgitation is present. Mitral Valve Thickened mitral leaflets No evidence of mitral valve stenosis. Trace to mild mitral regurgitation. Tricuspid Valve The tricuspid valve is normal in structure. There is no tricuspid valve stenosis. Trace to mild tricu spid regurgitation. Pulmonic Valve Pulmonic valve is not well visualized. Not able to obtain doppler due to recent surgery. Great Vessels The aortic root is normal in size. Ascending aorta is not well visualized. Aortic arch is normal in caliber. IVC is normal in size and collapses >50% with inspiration. Pericardium There is no pericardial effusion. 2D Dimensions IVSD d PLAX 0.94 cm F: 0.6-1.0 LV Vol A2C d MOD 68.4 mL LVPW d PLAX 0.90 cm F: 0.6 - 1.0 LV Vol A4C d MOD 119.1 mL LVID d PLAX 3.67 cm F: 3.8 - 5.2 LA vol/ BSA A2C s A-L 42.5 mL/m2 LVDs 2.35 cm F: 2.2 - 3.5 LA vol/ BSA A4C s A-L 32.0 mL/m2 Ao Root d 2.88 cm F: 2.7 - 3.3 LA Vol/ BSA Biplane s A-L 37.6 mL/m2 RA Area A4C 12.43 cm2 LA Area A4C s MOD 18.11 cm2 RA Vol/ BSA A4C s A-L 17.1 mL/m2 LA Area A2C s MOD 20.43 cm2 LV EF Teichholz 66.5 % LV EF A4C MOD 65.3 % LVEF (Ng's) 61.07 % F: 54 - 74 LV EF A2C MOD 60.1 % LV Volume 76.23 mL F: 46 - 106 LV EF Biplane MOD 61.1 % LV Volume Index 48.24 mL/m2 F: 29 - 61 SV 57.04 mL LV Vol Biplane MOD 93.4 mL SV Index 36.08 mL/m2 FS 35.95 % M-Mode TAPSE 2.36 cm (M/F) >1.7 LV Diastology MV E' medial 0.093 (>0.07 m/s) E/A Ratio 1.0 LV E/e MED 8.40 (<14) MV E Vmax 0.78 (0.4-1.3 m/s) MV E' lateral 0.112 (>0.1 m/s) MV A Vmax 0.80 (0.4-1.3 m/s) LV E/e LAT 6.95 (<14) MV E/A Ratio 0.93 MV E/E' medial 8.42 MV E/E' lateral 6.96 Aortic Valve LVOT Area 2.97 cm2 AoV Area Vmax 2.25 cm2 LVOT Vmax 1.39 m/s AoV Area/ BSA (Vmax) 1.42 cm2/m2 LVOT Mean Pablo. 0.99 m/s BERTHA Mean Pablo. 2.36 cm2 LVOT Peak Grad 7.8 mmHg BERTHA Mean Pablo. Index 1.49 cm2/m2 LVOT Mean Grad 4.3 mmHg LVOT VTI 0.242 m LVOT Diam s 1.90 cm AoV Vmax 1.84 m/s Velocity Ratio 0.75 AoV Mean Pablo. 1.24 m/s AoV Peak Grad 13.6 mmHg LVOT SV 71.80 mL AoV Mean Grad 6.9 mmHg AoV VTI 0.376 m AoV Area VTI 1.91 cm2 AoV Area/ BSA (VTI) 1.21 cm/m2 Mitral Valve MV DT 329 (160-240 msec) MV PHT 95 msec MV Area PHT 2.31 cm2 MV VTI 0.351 m MV Area VTI 2.05 (4.0-6.0 cm2) Tricuspid Valve TR Peak Grad 24.8 mmHg TR Vmax 2.49 m/s RA Pressure 3.00 mmHg RVSP (TR) 27.9 mmHg
== END 2021-10-01 01:30 ==
PROVIDERS: PCP Family Medicine; Visit Provider Family Medicine
DX: I26.99 Other pulmonary embolism without acute cor pulmonale (principal); R41.82 Altered mental status, unspecified; I65.23 Occlusion and stenosis of bilateral carotid arteries
CPT/HCPCS: 93306; 93880

== ENCOUNTER → 2022-06-10 02:51 | Outpatient (CLI) | payer MEDICARE, SELFPAY ==
--- NOTE | 2022-06-10 08:15 | DI.MRI_ITS ---
Exam(s) MR BRAIN WO EXAM: MR BRAIN WO CLINICAL HISTORY: dizziness episodes,tia,carotid stenosis,i65.29,g45.1 TECHNIQUE: Multiplanar multisequence MRI of the brain was performed. COMPARISON: CT CT HEAD WO from 09/10/2021 FINDINGS: CEREBRAL PARENCHYMA: There is no evidence of intracranial hemorrhage, mass effect, or shift of midline structures. There are no extra-axial fluid collections. Ventricles are not enlarged or shifted. There is no significant focal signal abnormality in the cerebellar hemispheres nor within the troy, m idbrain, and thalami. There is abundant relatively symmetrical bilateral Chantelle in supra ventricular signal abnormality consi stent with chronic small vessel disease. There is no associated hemorrhage nor surrounding edema nor restricted diffusion on DWI to suggest acute ischemic event. PITUITARY GLAND: No mass nor parasellar abnormality. No obvious abnormality in the cavernous sinuses. FLOW VOIDS: The expected flow void are noted. No evidence of obvious aneurysm nor obvious vascular ma lformation. PARANASAL SINUSES: The visualized paranasal sinuses appear unremarkable. No obvious finding ORBITS: No obvious findings. IMPRESSION: There is abundant bilateral periventricular signal abnormality consistent with chronic small-vessel w rosa matter ischemic changes. There is no evidence of restricted diffusion to suggest acute ischemic event. No evidence of intracranial hemorrhage. DATA REPOSITORY:
== END ==
PROVIDERS: PCP Family Medicine; Visit Provider Family Medicine
DX: R42 Dizziness and giddiness (principal); I65.23 Occlusion and stenosis of bilateral carotid arteries; I67.89 Other cerebrovascular disease
CPT/HCPCS: 70551

== ENCOUNTER 2022-06-15 04:19 | Outpatient (CLI) | payer MEDICARE, SELFPAY ==
[2022-06-15 12:43] LABS: ALT 29 U/L (14-59); AST 24 U/L (15-37); Albumin 3.7 g/dL (3.4-5.0); Alkaline Phosphatase 88 U/L (46-116); Anion Gap 3.2 mmol/L (3-11); BUN 18 mg/dL (7-18); Bilirubin, Total 0.4 mg/dL (0.2-1.0); CO2 34.8 mmol/L (21.0-32.0); CREATININE 0.7 mg/dL (0.55-1.02); Calcium 9.7 mg/dL (8.5-10.1); Calculated LDL 78 mg/dL (<100); Chloride 104 mmol/L (98-107); Cholesterol 176 mg/dL (<200); Estimated GFR 86.83 (mL/min/1.73m2); Glucose 90 mg/dL (74-106); HDL Cholesterol 92 mg/dL (40-60); Potassium 4.3 mmol/L (3.5-5.1); Sodium 142 mmol/L (136-145); Total Protein 7.1 g/dL (6.4-8.2); Triglyceride 34 mg/dL (<150)
== END 2022-06-15 04:20 | disposition home or self-care (01) ==
LOC: LOS 04:19
PROVIDERS: PCP Family Medicine; Visit Provider Family Medicine
DX: G45.1 Carotid artery syndrome (hemispheric) (principal); Z00.00 Encounter for general adult medical examination without abnormal findings; Z13.6 Encounter for screening for cardiovascular disorders
CPT/HCPCS: 36415; 80053; 80061

== ENCOUNTER 2022-07-08 17:42 | Emergency (ER) | payer MEDICARE, SELFPAY ==
[2022-07-08] VITALS (29 sets, daily range): BP systolic 169–225; BP diastolic 73–104; PULSE 58–76; RESP 10–21; TEMP 37.2; O2SAT 90–99
--- NOTE | 2022-07-08 18:00 | RT.EKG_ITS ---
APPROVED REPORT Exam: Resting ECG Reason for Exam: hypertension Patient Location: E HR:61 bpm ECG Measurements Heart Rate 61 AXIS NC 255 P 75 QRSd 79 QRS 69 QT 424 T 63 QTc 427 Conclusion Sinus rhythm...normal P axis, V-rate 60- 99 Prolonged NC interval...NC >220, V-rate 50- 90 Consider left ventricular hypertrophy...(S V1+R V5/V6) >3.25mV 1st deg heart block
[2022-07-08 18:32] LABS: Abs Immature Grans 0.01 10^3/uL (0.0-0.06); Absolute Basophil Count 0.02 10^3/uL (0.0-0.2); Absolute Eosinophil Count 0.04 10^3/uL (0.0-0.7); Absolute Lymphocyte Count 1.31 10^3/uL (1.2-3.4); Absolute Monocyte Count 0.43 10^3/uL (0.1-0.8); Absolute Neutrophil Count 2.65 10^3/uL (1.2-6.7); Basophils % 0.4; Eosinophils % 0.9; HCT 38.6 % (36.0-46.0); HGB 12.8 g/dL (11.2-15.7); Immature Grans % 0.2; Lymphocytes % 29.4; MCH 30.4 pg (27.0-33.0); MCHC 33.2 % (32.0-36.0); MCV 92 fL (80-95); MPV 10.1 fL (8.0-11.0); Monocytes % 9.6; Neutrophils % 59.5; Platelet Count 189 10^3/uL (130-400); RBC 4.21 10^6/uL (3.93-5.22); RDW 12.7 % (11.7-14.6); RDW-SD 42.6 fL; WBC 4.46 10^3/uL (4.4-10.8)
--- NOTE | 2022-07-08 18:37 | W.ED.GENAD ---
Discharge Plan Disposition Patient Disposition: Home Condition: Stable Discharge Details Clinical Impression: Hypertension Primary Care Provider: Diane Fitzgerald ED Provider: Paul Tobin Home Meds and New Rx's Prescriptions: New amlodipine 5 mg tablet 5 mg PO DAILY Qty: 30 0RF Continued atorvastatin 20 mg tablet 20 mg PO QHS Qty: 90 3RF multivitamin 1 EACH tablet 1 ea PO DAILY [id number] 1 EACH tablet 1 ea PO DAILY clopidogrel 75 mg tablet 75 mg PO DAILY Qty: 90 3RF lisinopril 10 mg tablet 10 mg PO DAILY Qty: 30 2RF Discharge Instructions Instructions: Hypertension (ED) Additional Instructions: Please follow-up with your primary care physician. Call tomorrow to arrange timely follow-up. Monitor your blood pressure and keep a log. Return to the emergency department immediately for any worsening or new concerning symptoms. Referrals: Diane Fitzgerald MD [Primary Care Provider] - Discharge Data Discharge Date/Time-TO BE ENTERED AT DEPARTURE: 07/08/22 20:43 Medical Decision Making 81-year-old female with history of essential hypertension, TIA, here with chief complaint of elevated blood pressure. Patient notes blood pressure has been elevated over the past few weeks. She was seen by her primary care physician earlier this month and recommended that she increase lisinopril dose to 10 mg a day which she did today. Patient is currently asymptomatic. She is neurologically intact. No concerning findings on examination. Screening EKG was reviewed and interpreted by me: Please see report, sinus rhythm 61 bpm, normal axis, first-degree AV block with VA interval of 255. First-degree AV block was present on prior EKG which I reviewed from 09/10/2021. No ischemic changes. Screening labs reviewed and creatinine is normal. Plan to initiate second antihypertensive. I will start amlodipine. Initial dose of 5 mg p.o. was given here. Plan for close outpatient follow-up with PCP. Patient was observed in the emerge department for period of time and blood pressure did decrease by more than 20%. Usual customary discharge instructions were reviewed with the patient. HPI General Mode of arrival: ambulatory. Date/Time Provider Initiated Documentation: 07/08/22 18:05. Limitations to Documentation: no limitations. Information obtained by: patient. HPI Narrative: 81-year-old female with history of essential hypertension, TIA, here with chief complaint of elevated blood pressure.? Patient notes blood pressure has been elevated over the past few weeks.? She was seen by her primary care physician earlier this month and recommended that she increase lisinopril dose to 10 mg a day which she did today. Blood pressure remained elevated later today. Blood pressure elevation is significant. No modifiers. She has no associated headache, chest pain or shortness of breath. She does note that she seemed flushed earlier today. No numbness or tingling. No focal weakness. Related Data Home Medications Medication Instructions Recorded Confirmed [id number] tablet 1 ea PO DAILY 03/22/13 07/08/22 multivitamin 1 ea PO DAILY 03/22/13 07/08/22 atorvastatin 20 mg tablet 20 mg PO QHS #90 tabs 06/03/22 07/08/22 clopidogrel 75 mg tablet 75 mg PO DAILY #90 tabs 07/01/22 07/08/22 lisinopril 10 mg tablet 10 mg PO DAILY #30 tabs 07/07/22 07/08/22 amlodipine 5 mg tablet 5 mg PO DAILY #30 tabs 07/08/22 Previous Rx's Medication Instructions Recorded atorvastatin 20 mg tablet 20 mg PO QHS #90 tabs 06/03/22 clopidogrel 75 mg tablet 75 mg PO DAILY #90 tabs 07/01/22 lisinopril 10 mg tablet 10 mg PO DAILY #30 tabs 07/07/22 amlodipine 5 mg tablet 5 mg PO DAILY #30 tabs 07/08/22 Allergies Allergy/AdvReac Type Severity Reaction Status Date / Time Penicillins Allergy Unknown Skin Rash Unverified 06/19/22 15:15 General Stated Complaint: GenMedical HORTENCIA: 2 Review of Systems All systems reviewed & are unremarkable except as noted in HPI and below Constitutional Constitutional: Denies fever(s) and Denies headache(s) ENT Ears, Nose, Mouth, and Throat: Denies vertigo, Denies dizziness, Denies headache(s) and Denies disequilibrium Cardiovascular Cardiovascular: Denies chest pain and Denies dyspnea Respiratory Respiratory: Denies dyspnea Musculoskeletal Musculoskeletal: Denies numbness and Denies tingling Neurologic Neurologic: Reports as per HPI, Denies vertigo, Denies dizziness, Denies headache(s), Denies lack of coordination, Denies localized weakness, Denies numbness, Denies sensory deficit, Denies tingling and Denies disequilibrium PFSH All Active Problems (Updated 07/08/22 @ 20:22 by Paul Tobin MD) Cystocele, midline (Acute) repair 2002, not succcessful Generalized osteoarthrosis (Acute) Heberden's nodes and bilateral knee pain Mitral valve regurgitation (Acute 04/03/13) Rectocele (Acute) Tubular adenoma (Acute) 11/19/14; DR. TRUJILLO 2020, tubular adenoma X 2 rec only prn Urgency incontinence (Acute 07/17/15) Sensorineural hearing loss (SNHL) of both ears (Acute) Pulmonary emboli (Chronic) 09/2021-bilateral, diagnosed at [facility],. occurred Postoperatively, treated with Eliquis, plan 3-month course DVT (deep venous thrombosis) (Chronic) 09/2021-associated with PE, postoperatively Right shoulder pain (Acute) Memory changes (Acute) Transient ischemic attack involving left internal carotid artery (Acute) Essential hypertension (Acute) Apnea, sleep (Acute) Hypertension (Chronic) Medical History [place] status 08/20[place], [place] [facility] [place]otid stenosis 09/2021-incidental finding and evaluation for possible TIA, modest stenosis on the left, within normal limits on right. Chest pain +ETT; neg. MPI Malignant neoplasm of female breast (06/10/88) 1985-right; bilateral mastectomy and reconstruction Surgical History Abdominal hysterectomy (~2002) Appendectomy AGE 16 Augmentation mammoplasty (~1986) S/P mastectomy for breast cancer Bilateral salpingectomy with oophorectomy (~2002) Breast, Mastectomy Bilateral Cataract extraction status, left eye (~06/14/18) Cataract extraction status, right eye (~05/24/18) S/P colonoscopy (~03/26/21) 11/19/14 Tonsillectomy Family History Mother , AGE 54 Neoplasm BREAST Father , AGE 59 Neoplasm LYMPHNODE SARCOMA Sister Neoplasm CERVIX/ RIGHT LUNG Brother , AGE 65 Neoplasm LUNG Brother Heart disease 4 [employer] Brother No problems noted. Sister Diabetes Neoplasm AGE 52 AND 69 BREAST Son Asthma Daughter Depression Nephew Primary cancer of bone marrow Paternal family history Alzheimer disease Maternal Family history Cancer 8 family members Maternal Grandfather , AGE 52 SURGICAL COMPLICATIONS No problems noted. Paternal Grandfather , AGE 64 Lung cancer Maternal Grandmother , AGE 58 Cancer Paternal Grandmother , AGE 81 OLD AGE No problems noted. Social History Smoking/Tobacco Use Status: Never Second Hand Exposure: Yes Smoking risk assessment performed?: Yes Alcohol Intake: current Alcohol Intake frequency: holidays/special occasions only Drug use: Never Substance use type: does not use Counseling given: Yes Counseling provided: none Caregiver/Support person: No Household members: spouse Housing: house Communication Needs: None Do you need help understanding health information?: Never Pets and animals: No Sexually active: No Do you think of yourself as: straight/heterosexual Current gender identity: female What is your relationship status?: How often do you talk on the phone with friends or family?: twice per week How often do you get together with friends or relatives?: once per week How often do you attend yazidi or nondenominational services?: 4 or more times per year Do you belong to any clubs or organized social groups?: no Panel score (0-1 are the most socially isolated patients): 3 What type of physical activity do you participate in: walking Duration: 15-30 minutes/day Frequency: daily Audrey/Anabaptist: Cheondoism Special audrey needs: No Seatbelt use: always Drive intox or ride w/intox garbage 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 Patient didn't express any immediate need. Exam Const General: cooperative and no acute distress HENMT Head: normocephalic and atraumatic Mouth: moist mucous membranes Eyes Conjunctivae: normal conjunctivae Sclera: normal sclerae EOM: EOM intact bilaterally Neck Neck: trachea midline and supple Resp Auscultation: clear to auscultation bilaterally, no rales, no rhonchi and no wheezes Cardio Jugular venous pressure: no JVD Rate: regular rate and not tachycardic Rhythm: regular rhythm GI Palpation: soft, not firm, no guarding, no masses, not rigid and nontender Skin General skin exam: no rashes or lesions noted Neuro General: patient alert, patient awake, patient oriented x3 and tone normal Cranial Nerves: CN's II-XI intact bilaterally Cognition: normal cognition Speech: speech normal Gait: normal gait Motor: strength 5/5 throughout Sensory Exam: no sensory deficits noted Coordination: other (Normal gait) Extrem General: no edema Psych Appearance: grossly normal Mental Status: mental status grossly normal Speech and Movement: speech and movement normal Course Vital Signs Vital signs: Vital Signs Temperature 37.2 C 07/08/22 17:46 Respiratory Rate 18 07/08/22 17:46 Blood Pressure 225/83 H 07/08/22 17:46 Pulse Oximetry 98 07/08/22 17:46 Temperature 37.2 C 07/08/22 17:46 Respiratory Rate 16 07/08/22 18:08 Respiratory Effort 07/08/22 18:08 Respiratory Depth Normal 07/08/22 18:08 Respiratory Pattern Normal 07/08/22 18:08 Blood Pressure 225/83 H 07/08/22 17:46 Blood Pressure Position Sitting 07/08/22 17:46 Pulse Oximetry 98 07/08/22 17:46 Oxygen Delivery Method Room Air 07/08/22 17:46 Oxygen Flow Rate 0 07/08/22 17:46 Pain Level 0 07/08/22 17:46 Lab/Test Results Lab/Test Results: Laboratory Tests Range/Units 07/08/22 18:20 WBC (4.4-10.8) 10^3/uL 4.46 RBC (3.93-5.22) 10^6/uL 4.21 Hgb (11.2-15.7) g/dL 12.8 Hct (36.0-46.0) % 38.6 MCV (80-95) fL 92 MCH (27.0-33.0) pg 30.4 MCHC (32.0-36.0) % 33.2 RDW (11.7-14.6) % 12.7 Plt Count (130-400) 10^3/uL 189 MPV (8.0-11.0) fL 10.1 Immature Gran % 0.2 Neutrophils % 59.5 Lymphocytes % 29.4 Monocytes % 9.6 Eosinophils % 0.9 Basophils % 0.4 Nucleated RBC % (0.0-0.3) % 0.0 Absolute Neutrophils (1.2-6.7) 10^3/uL 2.65 Absolute Lymphocytes (1.2-3.4) 10^3/uL 1.31 Absolute Monocytes (0.1-0.8) 10^3/uL 0.43 Absolute Eosinophils (0.0-0.7) 10^3/uL 0.04 Absolute Basophils (0.0-0.2) 10^3/uL 0.02
[2022-07-08] MEDS: amLODIPine 5 MG TAB PO (18:50)
[2022-07-08 18:53] LABS: ALT 29 U/L (14-59); AST 28 U/L (15-37); Alkaline Phosphatase 90 U/L (46-116); Anion Gap 5.5 mmol/L (3-11); BUN 16 mg/dL (7-18); Bilirubin, Total 0.4 mg/dL (0.2-1.0); CO2 32.5 mmol/L (21.0-32.0); CREATININE 0.7 mg/dL (0.55-1.02); Calcium 9.5 mg/dL (8.5-10.1); Chloride 100 mmol/L (98-107); Estimated GFR 86.83 (mL/min/1.73m2); Glucose 95 mg/dL (74-106); Magnesium 2.1 mg/dL (1.8-2.4); Potassium 3.7 mmol/L (3.5-5.1); Sodium 138 mmol/L (136-145); Total Protein 7.4 g/dL (6.4-8.2)
== END 2022-07-08 20:43 | disposition home or self-care (01) ==
PROVIDERS: Emergency Provider Student in an Organized Health Care Education/Training Program; PCP Family Medicine
DX: I10 Essential (primary) hypertension (principal); I44.0 Atrioventricular block, first degree; Z86.73 Personal history of transient ischemic attack (TIA), and cerebral infarction without residual deficits; Z79.899 Other long term (current) drug therapy
CPT/HCPCS: 36415; 80053; 93005; 99283; 83735; 85025; 93010; 99284

== ENCOUNTER 2022-07-16 08:43 | Outpatient (CLI) | payer MEDICARE, SELFPAY | END 2022-07-16 08:44 | disposition home or self-care (01) | PROVIDERS: PCP Family Medicine; Visit Provider Family Medicine | DX: G47.30 Sleep apnea, unspecified (principal) | CPT/HCPCS: 93270 ==

== ENCOUNTER 2022-07-20 02:43 | Outpatient (CLI) | payer MEDICARE, SELFPAY ==
--- NOTE | 2022-07-20 06:45 | DI.US_ITS ---
Exam(s) US CAROTID EXAM: US CAROTID CLINICAL HISTORY: recurrent TIAs,G45.1. TECHNIQUE: Ultrasound carotids performed using grayscale, color-flow, and spectral Doppler imaging. COMPARISON: No exams were available for comparison FINDINGS: RIGHT CAROTID ARTERY: Plaque: Minimal. Velocity elevation: None. LEFT CAROTID ARTERY: Plaque: Minimal. Velocity elevation: None. VERTEBRAL ARTERIES: Antegrade flow. Measurements: R Bulb: 58.1cm/s PS / 16.7cm/s ED R CCA: 41.2cm/s PS / 14.1cm/s ED R ECA: 96.5cm/s PS / 15.3cm/s ED R ICA Prox: 47.7cm/s PS / 15.4cm/s ED R ICA Mid: 65.8cm/s PS / 18cm/s ED R ICA Distal: 84.9cm/s PS /24.3cm/s ED R Vert: 56.5cm/s PS / 16.6cm/s ED R SVR: 2.1 R DVR: 1.7 L Bulb: 52.4cm/s PS / 15.2cm/s ED L CCA: PS / 16.5cm/s ED L ECA: 74.5cm/s PS / 13.8cm/s ED L ICA Prox: 49.8cm/s PS / 16.5cm/s ED L ICA Mid: 63.9cm/s PS / 21.6cm/s ED L ICA Distal: 77cm/s PS / 25.2cm/s ED L Vert: 44.1cm/s PS / 10cm/s ED L SVR: 1.4 L DVR: 1.5 IMPRESSION: No evidence for hemodynamically significant carotid stenosis. Criteria for Carotid Stenosis: Normal: ICA PSV <125 cm/s no plaque or intimal thickening is visible. <50% stenosis: ICA PSV <125 cm/s and plaque or intimal thickening is visible. 50-69% stenosis: ICA PSV is 125-250 cm/s and plaque is visible. >70% stenosis to near occlusion: ICA PSV >250 cm/s with visible plaque and luminal narrowing. DATA REPOSITORY:
== END 2022-07-20 03:03 ==
LOC: DI 02:43
PROVIDERS: PCP Family Medicine; Visit Provider Family Medicine
DX: G45.1 Carotid artery syndrome (hemispheric) (principal)
CPT/HCPCS: 93880

== ENCOUNTER → 2022-08-13 13:51 | Outpatient (BNVA) | payer MEDICARE, SELFPAY | PROVIDERS: PCP Family Medicine; Referring Provider Family Medicine; Visit Provider Psychiatry & Neurology Neurology | DX: I10 Essential (primary) hypertension (principal); I95.1 Orthostatic hypotension | CPT/HCPCS: 99215 ==

== ENCOUNTER 2022-08-20 08:11 | Outpatient (CLI) | payer MEDICARE, SELFPAY ==
--- NOTE | 2022-08-20 09:39 | W.CARDEVENT ---
Date of service: 08/20/22 Time of Service: 09:39 Cardiac Event Recorder Referring Provider:: Diane Fitzgerald Indications:: Sleep apnea Cardiac Event Note: This is a 30-day cardiac event monitor ordered for sleep apnea Rhythm throughout was sinus with first-degree AV block and an average heart rate of 62. there were occasional ventricular ectopic beats There was no atrial fibrillation no high-grade AV block no pauses greater than 3 seconds Patient symptoms of fatigue and lightheadedness have no correlation with any dysrhythmia
== END 2022-08-20 08:12 | disposition home or self-care (01) ==
LOC: CARDOPNVT 08:11
PROVIDERS: PCP Family Medicine; Visit Provider Internal Medicine Cardiovascular Disease
DX: G47.30 Sleep apnea, unspecified (principal); I44.0 Atrioventricular block, first degree
CPT/HCPCS: 93272

== ENCOUNTER 2022-09-21 09:02 | Outpatient (CLI) | payer MEDICARE, SELFPAY ==
--- NOTE | 2022-09-21 09:00 | RT.EKG_ITS ---
APPROVED REPORT Exam: Resting ECG Reason for Exam: Patient Location: O HR:61 bpm ECG Measurements Heart Rate 61 AXIS DC 234 P 80 QRSd 67 QRS 66 QT 427 T 65 QTc 430 Conclusion Sinus rhythm...normal P axis, V-rate 50- 99 Prolonged DC interval...DC >220, V-rate 50- 90 Left ventricular hypertrophy...multiple voltage criteria
== END 2022-09-21 09:03 | disposition home or self-care (01) ==
LOC: DI.CARD 09:03
PROVIDERS: PCP Family Medicine; Visit Provider Internal Medicine Cardiovascular Disease
DX: R07.9 Chest pain, unspecified (principal); I45.6 Pre-excitation syndrome; I42.2 Other hypertrophic cardiomyopathy
CPT/HCPCS: 93010

== ENCOUNTER → 2022-09-21 11:13 | Outpatient (BNVA) | payer MEDICARE, SELFPAY | PROVIDERS: PCP Family Medicine; Referring Provider Family Medicine; Visit Provider Internal Medicine Cardiovascular Disease | DX: I95.1 Orthostatic hypotension | CPT/HCPCS: 93005; 99203; 99214 ==

== ENCOUNTER → 2022-10-19 13:46 | Outpatient (BNVA) | payer MEDICARE, SELFPAY | PROVIDERS: PCP Family Medicine; Referring Provider Family Medicine; Visit Provider Internal Medicine Cardiovascular Disease | DX: I95.1 Orthostatic hypotension (principal); I10 Essential (primary) hypertension | CPT/HCPCS: 99213 ==

== ENCOUNTER → 2023-01-18 13:00 | Outpatient (BNVA) | payer MEDICARE, SELFPAY | PROVIDERS: PCP Family Medicine; Visit Provider Internal Medicine Cardiovascular Disease | DX: I95.1 Orthostatic hypotension (principal) | CPT/HCPCS: 99212 ==

== ENCOUNTER 2023-02-13 18:03 | Inpatient (IN) | payer MEDICARE, SELFPAY ==
[2023-02-13] VITALS (37 sets, daily range): BP systolic 145–200; BP diastolic 78–102; PULSE 57–85; RESP 14–23; TEMP 36.8–37; O2SAT 95–99
--- NOTE | 2023-02-13 18:15 | DI.CT_ITS ---
Exam(s) CT HEAD - STROKE PROTOCOL EXAM: CT HEAD - STROKE PROTOCOL CLINICAL HISTORY: dysarthria. TECHNIQUE: Imaging Protocol: Axial computed tomography images with coronal and sagittal reformatted images were created and reviewed COMPARISON: CT CT HEAD WO from 09/10/2021 MR MR BRAIN WO from 06/10/2022 FINDINGS: Ventricles and Extra axial spaces: Normal in size and morphology for the patient's age. Hemorrhage: None. Cerebral parenchyma: Atrophy. White matter changes consistent with small vessel disease. Old left b mell ganglia lacunar infarct. Midline shift: None. Brainstem/Cerebellum: Normal. Calvarium: Normal. Visualized Paranasal sinuses/Mastoids: Clear. IMPRESSION: Old left basal ganglia lacunar infarct. No acute abnormality. RADIATION DOSE DELIVERED: 1,284.78mGy.cm Total DLP 1,284.78mGy.cm Total DLP DATA REPOSITORY: All CT scans at this facility are submitted to the National Radiology Data Registry (NRDR) Dose Index Registry (DIR) with the [employer] (A[employer]). RADIATION OPTIMIZATION: All CT scans at this facility use at least one of these dose optimization te chniques: automated exposure control; mA and/or kV adjustment per patient size (includes targeted exa ms where dose is matched to clinical indication); or iterative reconstruction.
--- NOTE | 2023-02-13 18:26 | ED.GENADUL_ITS ---
Discharge Plan Discharge Details Chief Complaint: CVA/TIA Admit Date/Time: 02/13/23 21:52 Admit Provider: Joaquim Rodriguez Attending Provider: Joaquim Rodriguez Primary Care Provider: Diane Fitzgerald ED Provider: Brooks Williamson Discharge Data Discharge Date/Time-TO BE ENTERED AT DEPARTURE: 02/13/23 23:24 Medical Decision Making 82yo F with hx of prior TIA, HTN, not on blood thinners, presenting with dysarthria and difficulty with balance since 0900 this morning. Hypertensive on arrival, vital signs otherwise reassuring. Moderate dysarthria and dysmetria on left on exam. NIHSS of 2. Out of window for TPA. Non-con head CT ordered and reviewed, no intracranial hemmoraghe or acute infarct on my view, agree with radiology read below. Labs reviewed as below, CBC & CMP reassuring with no significant abnormalities, UA negative for infection. Symptoms concerning for T IA vs ischemic infarct, workup unrevealing for any stroke mimicers. CTA ordered. Sign out to oncoming physican, plan to followup CTA, likely admit for TIA vs possible transfer if significant vessel occlusion present. Imaging Data Radiologic Study: Imaging: CT Scan Radiologist's impression: IMPRESSION: Chronic ischemic changes including old left basal ganglia lacunar infarct.? No acute abnormality. Lab Data Lab results reviewed: Yes I reviewed the patient's lab results. Labs: Laboratory Tests Range/Units 02/13/23 02/13/23 02/13/23 19:15 19:15 19:15 WBC (4.4-10.8) 10^3/uL 4.89 RBC (3.93-5.22) 10^6/uL 4.55 Hgb (11.2-15.7) g/dL 13.5 Hct (36.0-46.0) % 41.9 MCV (80-95) fL 92 MCH (27.0-33.0) pg 29.7 MCHC (32.0-36.0) % 32.2 RDW (11.7-14.6) % 12.4 Plt Count (130-400) 10^3/uL 189 MPV (8.0-11.0) fL 10.2 Immature Gran % 0.2 Neutrophils % 53.6 Lymphocytes % 31.9 Monocytes % 13.3 Eosinophils % 0.8 Basophils % 0.2 Nucleated RBC % (0.0-0.3) % 0.0 Absolute Neutrophils (1.2-6.7) 10^3/uL 2.62 Absolute Lymphocytes (1.2-3.4) 10^3/uL 1.56 Absolute Monocytes (0.1-0.8) 10^3/uL 0.65 Absolute Eosinophils (0.0-0.7) 10^3/uL 0.04 Absolute Basophils (0.0-0.2) 10^3/uL 0.01 PT (9.3-11.0) sec 9.9 INR (0.9-1.1) 1.0 Sodium (136-145) mmol/L 139 Potassium (3.5-5.1) mmol/L 4.3 Chloride (98-107) mmol/L 101 Carbon Dioxide (21.0-32.0) mmol/L 31.5 Anion Gap (3-11) mmol/L 6.5 BUN (7-18) mg/dL 18 Creatinine (0.55-1.02) mg/dL 0.8 Est GFR (CKD-EPI 2020) (mL/min/1.73m2) 73.52 Glucose (74-106) mg/dL 77 Calcium (8.5-10.1) mg/dL 9.7 Magnesium (1.8-2.4) mg/dL 2.2 Total Bilirubin (0.2-1.0) mg/dL 0.3 AST (15-37) U/L 19 ALT (14-59) U/L 27 Alkaline Phosphatase (46-116) U/L 95 Troponin I (<or=60) ng/L < 50 Total Protein (6.4-8.2) g/dL 7.2 Albumin (3.4-5.0) g/dL 3.9 Urine Color (Yellow) Urine Clarity (Clear) Urine pH (5-8) Ur Specific [place] (1.005-1.025) Urine Protein (Negative) mg/dL Urine Ketones (Negative) mg/dL Urine Blood (Negative) Urine Nitrite (Negative) Urine Bilirubin (Negative) Urine Urobilinogen (Up to 0.2) mg/dL Ur Leukocyte Esterase (Negative) Urine RBC (0-2) HPF Urine WBC (0-5) HPF Ur Epithelial Cells (Negative) HPF Urine Crystals (Negative) HPF Urine Bacteria (Negative) HPF Urine Mucus (Negative) Ur Culture Indicated? Urine Glucose (Negative) mg/dL Urine Opiates Screen (Negative) Urine Methadone Screen (Negative) Ur Barbiturates Screen (Negative) Ur Tricyclics Screen (Negative) Ur Amphetamines Screen (Negative) U Benzodiazepines Scrn (Negative) Urine Cocaine Screen (Negative) Ur THC Screen (Negative) Range/Units 02/13/23 02/13/23 02/13/23 19:15 19:15 21:19 WBC (4.4-10.8) 10^3/uL RBC (3.93-5.22) 10^6/uL Hgb (11.2-15.7) g/dL Hct (36.0-46.0) % MCV (80-95) fL MCH (27.0-33.0) pg MCHC (32.0-36.0) % RDW (11.7-14.6) % Plt Count (130-400) 10^3/uL MPV (8.0-11.0) fL Immature Gran % Neutrophils % Lymphocytes % Monocytes % Eosinophils % Basophils % Nucleated RBC % (0.0-0.3) % Absolute Neutrophils (1.2-6.7) 10^3/uL Absolute Lymphocytes (1.2-3.4) 10^3/uL Absolute Monocytes (0.1-0.8) 10^3/uL Absolute Eosinophils (0.0-0.7) 10^3/uL Absolute Basophils (0.0-0.2) 10^3/uL PT (9.3-11.0) sec INR (0.9-1.1) Sodium (136-145) mmol/L Potassium (3.5-5.1) mmol/L Chloride (98-107) mmol/L Carbon Dioxide (21.0-32.0) mmol/L Anion Gap (3-11) mmol/L BUN (7-18) mg/dL Creatinine (0.55-1.02) mg/dL Est GFR (CKD-EPI 2020) (mL/min/1.73m2) Glucose (74-106) mg/dL Calcium (8.5-10.1) mg/dL Magnesium (1.8-2.4) mg/dL Total Bilirubin (0.2-1.0) mg/dL AST (15-37) U/L ALT (14-59) U/L Alkaline Phosphatase (46-116) U/L Troponin I (<or=60) ng/L Cancelled Total Protein (6.4-8.2) g/dL Albumin (3.4-5.0) g/dL Urine Color (Yellow) Yellow Urine Clarity (Clear) Clear Urine pH (5-8) 7.0 Ur Specific [place] (1.005-1.025) 1.015 Urine Protein (Negative) mg/dL Negative Urine Ketones (Negative) mg/dL Negative Urine Blood (Negative) Negative Urine Nitrite (Negative) Negative Urine Bilirubin (Negative) Negative Urine Urobilinogen (Up to 0.2) mg/dL 0.2 Ur Leukocyte Esterase (Negative) Trace H Urine RBC (0-2) HPF 0-2 Urine WBC (0-5) HPF 0-2 Ur Epithelial Cells (Negative) HPF Rare Urine Crystals (Negative) HPF Negative Urine Bacteria (Negative) HPF Negative Urine Mucus (Negative) Negative Ur Culture Indicated? No Urine Glucose (Negative) mg/dL Negative Urine Opiates Screen (Negative) Negative Urine Methadone Screen (Negative) Negative Ur Barbiturates Screen (Negative) Negative Ur Tricyclics Screen (Negative) Negative Ur Amphetamines Screen (Negative) Negative U Benzodiazepines Scrn (Negative) Negative Urine Cocaine Screen (Negative) Negative Ur THC Screen (Negative) Negative HPI General Mode of arrival: ambulatory . Date/Time Provider Initiated Documentation: 02/13/23 18:08 . Limitations to Documentation: no limitations . Information obtained by: patient and family . HPI Narrative: 82yo F with hx of possible prior TIAs presenting with dysarthria and balance difficulties since 0900 this morning. No headache, fall, or recent injury. No numbness/tingling/weakness. No chest pain, shortness of breath, palpitations, lightheadedness, or sycnope. She is otherwise in her usual state of health with no fevers, chills, rash, nausea, vomiting, abdominal pain, dysuria, hematuria, cough, rhinnorhea, or other concerns. Related Data Home Medications Medication Instructions Recorded Confirmed [id number] tablet 1 ea PO DAILY 03/22/13 02/13/23 multivitamin 1 ea PO DAILY 03/22/13 02/13/23 atorvastatin 20 mg tablet 20 mg PO QHS #90 tabs 06/03/22 02/13/23 pyridostigmine bromide 60 mg tablet See Rx Instructions PO BID PRN 08/19/22 02/13/23 dizziness #60 tabs cyanocobalamin (vitamin B-12) 1,000 mcg PO DAILY 12/09/22 02/13/23 1,000 mcg capsule lisinopril 10 mg tablet 10 mg PO HS #90 tabs 12/22/22 02/13/23 Previous Rx's Medication Instructions Recorded atorvastatin 20 mg tablet 20 mg PO QHS #90 tabs 06/03/22 pyridostigmine bromide 60 mg tablet See Rx Instructions PO BID PRN 08/19/22 dizziness #60 tabs lisinopril 10 mg tablet 10 mg PO HS #90 tabs 12/22/22 Allergies Allergy/AdvReac Type Severity Reaction Status Date / Time Penicillins Allergy Unknown Skin Rash Verified 01/18/23 13:25 General Stated Complaint: CVA/TIA HORTENCIA: 2 Review of Systems Narrative: see HPI PFSH All Active Problems (Updated 02/14/23 @ 11:47 by Joaquim Rodriguez MD) CVA (cerebral vascular accident) (Acute) TIA (transient ischemic attack) (Acute) Cystocele, midline (Chronic) repair 2002, not succcessful Generalized osteoarthrosis (Chronic) [place]ber[place]'s nodes and bilateral knee pain Mitral valve regurgitation (Chronic 04/03/13) Rectocele (Chronic) Tubular adenoma (Chronic) 11/19/14; DR. TRUJILLO 2020, tubular adenoma X 2 rec only prn Urgency incontinence (Chronic 07/17/15) Sensorineural hearing loss (SNHL) of both ears (Chronic) Right shoulder pain (Chronic) Memory changes (Chronic) Transient ischemic attack involving left internal carotid artery (Chronic) Essential hypertension (Chronic) Involuntary jerky movements (Chronic) left leg Orthostatic hypotension (Chronic) negative event monitor Medical History (Updated 02/14/23 @ 11:47 by Joaquim Rodriguez MD) Breast [place] status [place]/2021, [place] [facility] [place] +ETT; neg. MPI DVT (deep venous thrombosis) 09/2021-associated with PE, postoperatively Hypertension Malignant neoplasm of female breast (06/10/88) 1985-right; bilateral mastectomy and reconstruction Pulmonary emboli 09/2021-bilateral, diagnosed at [facility],. occurred Postoperatively, treated with Eliclarita, plan 3-month course Restless legs syndrome (~09/2022) Diagnosed on sleep study September 2022. No treatment, asymptomatic. Surgical History Abdominal hysterectomy (~2002) Appendectomy AGE 16 Augmentation mammoplasty (~1986) S/P mastectomy for breast cancer Bilateral salpingectomy with oophorectomy (~2002) Breast, Mastectomy Bilateral Cataract extraction status, left eye (~06/14/18) Cataract extraction status, right eye (~05/24/18) S/P colonoscopy (~03/26/21) 11/19/14 Tonsillectomy Family History Mother , AGE 54 Neoplasm BREAST Father , AGE 59 Neoplasm LYMPHNODE SARCOMA Sister Neoplasm CERVIX/ RIGHT LUNG Brother , AGE 65 Neoplasm LUNG Brother Heart disease 4 [employer] Brother No problems noted. Sister Diabetes Neoplasm AGE 52 AND 69 BREAST Son Asthma Daughter Depression Nephew Primary cancer of bone marrow Paternal family history Alzheimer disease Maternal Family history Cancer 8 family members Maternal Grandfather , AGE 52 SURGICAL COMPLICATIONS No problems noted. Paternal Grandfather , AGE 64 Lung cancer Maternal Grandmother , AGE 58 Cancer Paternal Grandmother , AGE 81 OLD AGE No problems noted. Social History Smoking/Tobacco Use Status: Never Second Hand Exposure: Yes Smoking risk assessment performed?: Yes Alcohol Intake: current Alcohol Intake frequency: holidays/special occasions only Drug use: Never Substance use type: does not use Counseling given: Yes Counseling provided: none Caregiver/Support person: No Household members: spouse Housing: house Communication Needs: None Do you need help understanding health information?: Never Pets and animals: No Sexually active: No Do you think of yourself as: straight/heterosexual Current gender identity: female What is your relationship status?: How often do you talk on the phone with friends or family?: twice per week How often do you get together with friends or relatives?: once per week How often do you attend druze or uatsdin services?: 4 or more times per year Do you belong to any clubs or organized social groups?: no Panel score (0-1 are the most socially isolated patients): 3 What type of physical activity do you participate in: walking Duration: 15-30 minutes/day Frequency: daily Audrey/Sikhism: Jewish Special audrey needs: No Seatbelt use: always 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 Patient didn't express any immediate need. Exam Narrative Exam Narrative: General: Alert, well appearing, well nourished, in no acute distress. Head: Normocephalic, atraumatic Neck: Trachea midline, Neck supple. ENT: MMM. Cardiac: RRR, no murmurs appreciated Resp: No respiratory distress. CTAB. Abd: Soft, non-distended, nontender : No suprapubic tenderness. Extremities: No deformities. No peripheral edema. Neuro: GCS 15. PERRL. EOMI. Dysarthria. Motor- 5/5 strength symmetric bilateral upper and lower extremities Sensation- Intact to light touch and symmetric multiple dermatomes including upper and lower extremities Coordination- Dysmetria on finger to nose on left. No dysmetria right. CRANIAL NERVES: II: Pupils equal and reactive, III, IV, : EOM intact, no gaze preference or deviation, no nystagmus. V: normal sensation in V1, V2, and V3 segments bilaterally VII: no asymmetry, no nasolabial fold flattening VIII: normal hearing to speech Course Vital Signs Vital signs: Vital Signs Temperature 36.8 C 02/13/23 18:05 Pulse 57 L 02/13/23 18:05 Respiratory Rate 20 02/13/23 18:05 Blood Pressure 181/78 H 02/13/23 18:05 Pulse Oximetry 98 02/13/23 18:05 Temperature 36.8 C 02/13/23 18:05 Temperature Source Oral 02/13/23 18:05 Pulse 57 L 02/13/23 18:05 Respiratory Rate 20 02/13/23 18:05 Blood Pressure 181/78 H 02/13/23 18:05 Blood Pressure Position Sitting 02/13/23 18:05 Pulse Oximetry 98 02/13/23 18:05 Oxygen Delivery Method Room Air 02/13/23 18:05 Oxygen Flow Rate 0 02/13/23 18:05 Pain Level 0 02/13/23 18:05 Sign Out Sign Out Data: Sign Out Comment: 82yo F hx prior TIA, not on AC, presenting with dysarthria since 0900. Dysarthria and dysmetria on exam. Labs unremarkable. CT head non- con negative for acute findings. CTA pending. Plan followup CTA, admit [facility] for TIA if no large-vessel occlusion. Last updated by Yazmin Haile MD at 02/13/23 20:17
--- NOTE | 2023-02-13 18:39 | DI.VRAD_ITS ---
PROCEDURE INFORMATION: Exam: CT Head Without Contrast Exam date and time: 02/13/2023 6:31 PM Age: 82 years old Clinical indication: Stroke-like symptoms; Other: Dysarthria TECHNIQUE: Imaging protocol: Computed tomography of the head without contrast. Radiation optimization: All CT scans at this facility use at least one of these dose optimization techniques: automated exposure control; mA and/or kV adjustment per patient size (includes targeted exams where dose is matched to clinical indication); or iterative reconstruction. Other technique: STROKE PROTOCOL was implemented. COMPARISON: MR BRAIN WO 10/06/2022 14:25 FINDINGS: Brain: Brain shows minimal involutional change. No intra-axial or extra-axial hemorrhage. Small old infarct of the left basal ganglia. No acute infarct seen at this time. Mild white matter microangiopathic changes. No midline shift. Cerebral ventricles: Normal. No ventriculomegaly or midline shift. Pituitary gland and sella: Normal. No enlargement. Paranasal sinuses: Visualized sinuses are unremarkable. No fluid levels or mucosal thickening. Mastoid air cells: Visualized mastoid air cells are well aerated. Bones/joints: Unremarkable. No acute fracture. Soft tissues: Unremarkable. Vasculature: No significant atherosclerotic calcification. IMPRESSION: Chronic ischemic changes including old left basal ganglia lacunar infarct. No acute abnormality. ASSESSMENT: ASPECTS (Prema Stroke Program Early CT Score) is 10. Dictated and Authenticated by: Martin Camejo MD. Ordering:ALAN Arce MD
[2023-02-13 19:25] LABS: Abs Immature Grans 0.01 10^3/uL (0.0-0.06); Absolute Basophil Count 0.01 10^3/uL (0.0-0.2); Absolute Eosinophil Count 0.04 10^3/uL (0.0-0.7); Absolute Lymphocyte Count 1.56 10^3/uL (1.2-3.4); Absolute Monocyte Count 0.65 10^3/uL (0.1-0.8); Absolute Neutrophil Count 2.62 10^3/uL (1.2-6.7); Basophils % 0.2; Bilirubin Negative (Negative); Blood Negative (Negative); Clarity Clear (Clear); Eosinophils % 0.8; Glucose Negative (Negative); HCT 41.9 % (36.0-46.0); HGB 13.5 g/dL (11.2-15.7); Immature Grans % 0.2; Ketones Negative (Negative); Leukocyte Esterase Trace (Negative); Lymphocytes % 31.9; MCH 29.7 pg (27.0-33.0); MCHC 32.2 % (32.0-36.0); MCV 92 fL (80-95); MPV 10.2 fL (8.0-11.0); Monocytes % 13.3; Neutrophils % 53.6; Nitrite Negative (Negative); Platelet Count 189 10^3/uL (130-400); RBC 4.55 10^6/uL (3.93-5.22); RDW 12.4 % (11.7-14.6); RDW-SD 41.9 fL; Specific Gravity 1.015 (1.005-1.025); Urobilinogen 0.2 mg/dL (Up to 0.2); WBC 4.89 10^3/uL (4.4-10.8)
[2023-02-13 19:35] LABS: Bacteria Negative HPF (Negative); Crystals Negative HPF (Negative); Epithelial Cells Rare HPF (Negative); Mucus Negative (Negative); RBC 0-2 HPF (0-2); WBC 0-2 HPF (0-5)
[2023-02-13 19:36] LABS: C & S Indicated? No
--- NOTE | 2023-02-13 19:38 | DI.CT_ITS ---
Exam(s) CT BRAIN NECK CTA EXAM: CT BRAIN NECK CTA CLINICAL HISTORY: dysarthria since 0900 this am, dysmetria on L. TECHNIQUE: Imaging Protocol: Axial CT angiography was performed with multi-slice acquisition and mu lti-planar and 3D reconstructions. CONTRAST MATERIAL: Intravenous: Omnipaque 350 Contrast volume:85 mL COMPARISON: CT CT HEAD - STROKE PROTOCOL from 02/13/2023 FINDINGS: CT Head W/O and W contrast: Ventricles and Extra axial spaces: Normal in size and morphology for the patient's age. Hemorrhage: None. Cerebral parenchyma: Old left basal ganglia infarct. No acute infarct visible. Midline shift: None. Brainstem/Cerebellum: Normal. Calvarium: Normal. Visualized Paranasal sinuses/Mastoids: Clear. Soft Tissues: Unremarkable. Enhancement: Normal. CTA Brain W: Internal Carotid Arteries: Petrous: Normal. Cavernous: Normal. Cerebral: Normal. Middle Cerebral Arteries: Right: No aneurysm, occlusion or significant stenosis. Left: No aneurysm, occlusion or significant stenosis. Anterior Cerebral Arteries: Right: Reduced caliber throughout, compared to the left. Findings could be developmental versus sten osis. No aneurysm or occlusion. Left: No aneurysm, occlusion or significant stenosis. Posterior cerebral Arteries: origin bilaterally. Right: No aneurysm, occlusion or significant stenosis. Left: No aneurysm, occlusion or significant stenosis. Vertebral Arteries: Right: No aneurysm, occlusion or significant stenosis. Left: No aneurysm, occlusion or significant stenosis. Basilar Artery: No aneurysm, occlusion or significant stenosis. CTA Neck W: Common Carotid: Right: No dissection, occlusion or significant stenosis. Left: No dissection, occlusion or significant stenosis. External Carotid: Right: No dissection, occlusion or significant stenosis. Left: No dissection, occlusion or significant stenosis. Internal Carotid: Right: Mixed plaque causing approximately 50 percent stenosis proximally. No dissection. Left: Mild plaque. No significant stenosis. no dissection, occlusion or significant stenosis. Vertebral Artery: Right: Dominant. No dissection, occlusion or significant stenosis. Left: no dissection, occlusion or significant stenosis. Lung Apices: Normal. Bones: No acute abnormality. Soft Tissues: Normal. IMPRESSION: 1. CTA head: Reduced caliber the right A2 segment distally compared to the left which could indicate significant multi focal atherosclerotic stenosis versus embolism. 2. Head CT: Old left basal ganglia infarct. No acute infarct visible at this time. 3. Neck CT: Focal plaque at the proximal internal carotid artery causing approximately [address] enosis.. RADIATION DOSE DELIVERED: 1,053.83mGy.cm Total DLP DATA REPOSITORY: All CT scans at this facility are submitted to the National Radiology Data Registry (NRDR) Dose Index Registry (DIR) with the [employer] (ACR). RADIATION OPTIMIZATION: All CT scans at this facility use at least one of these dose optimization te chniques: automated exposure control; mA and/or kV adjustment per patient size (includes targeted exa ms where dose is matched to clinical indication); or iterative reconstruction.
[2023-02-13 19:41] LABS: *AMPHETAMINES SCREEN URINE Negative (Negative); *BARBITURATES SCREEN URINE Negative (Negative); *BENZODIAZEPINES SCREEN URINE Negative (Negative); Cannabinoids THC Negative (Negative); Cocaine Screen,Urine Negative (Negative); METHADONE URINE SCREEN Negative (Negative); OPIATES URINE SCREEN Negative (Negative)
[2023-02-13 19:42] LABS: Tricyclic Antidepressants Negative (Negative)
[2023-02-13 19:44] LABS: ALT 27 U/L (14-59); AST 19 U/L (15-37); Albumin 3.9 g/dL (3.4-5.0); Alkaline Phosphatase 95 U/L (46-116); Anion Gap 6.5 mmol/L (3-11); BUN 18 mg/dL (7-18); Bilirubin, Total 0.3 mg/dL (0.2-1.0); CO2 31.5 mmol/L (21.0-32.0); CREATININE 0.8 mg/dL (0.55-1.02); Calcium 9.7 mg/dL (8.5-10.1); Chloride 101 mmol/L (98-107); Estimated GFR 73.52 (mL/min/1.73m2); Glucose 77 mg/dL (74-106); Magnesium 2.2 mg/dL (1.8-2.4); Potassium 4.3 mmol/L (3.5-5.1); Sodium 139 mmol/L (136-145); Total Protein 7.2 g/dL (6.4-8.2); Troponin I < 50 ng/L (<or=60)
[2023-02-13 19:57] LABS: Prothrombin Time 9.9 sec (9.3-11.0)
--- NOTE | 2023-02-13 20:09 | W.EDPROG ---
Date of service: 02/13/23 Time of Service: 20:09 Medical Decision Making I received signout on this 82-year-old female with balance issues that began this morning at 9 AM concerning for TIA. She reportedly has dysmetria and some subtle dysarthria. She is pending a CTA and will plan on hospitalizing her once her CTA has been completed given concern for TIA she would likely benefit from an MRI and possibly an updated echocardiogram. 10:15 PM I spoke with Dr. Pope who graciously agreed to accept the patient for hospitalization. I reviewed the CTA report which showed that the A2 through A4 segments of the right anterior cerebral artery are relatively diminutive compared to the left. A segment of the distal A2 approximately 3 portion of the right anterior cerebral artery is reportedly intermittently barely perceivable decreased in degree of contrast opacification very suspicious for embolus. I will call the [place] at [facility] [place] determine whether or not patient may be a thrombectomy candidate. I examined the patient. She had very mild aphasia. Her symptoms have nearly completely resolved. Will page [facility] [place]. I also spoke with the patient's daughter and her son by phone. Daughter reported that she had balance issues that began at 9 AM and some left-sided leg weakness. This afternoon she also had an unsteady gait and some aphasia per her son. 11:18 PM I spoke with Dr. Valencia from neurology at [facility]. She reviewed the patient's CT and she was not concerned for any acute thrombus and did not feel that the patient would be a candidate for intervention. She advised dual antiplatelet treatment. We will proceed with hospitalization at [facility] and update family. Sign Out Sign Out Data: Sign Out Comment: 82yo F hx prior TIA, not on AC, presenting with dysarthria since 0900. Dysarthria and dysmetria on exam. Labs unremarkable. CT head non-con negative for acute findings. CTA pending. Plan followup CTA, admit [facility] for TIA if no large-vessel occlusion. Last updated by Yazmin Haile MD at 02/13/23 20:17 Discharge Plan Discharge Details Chief Complaint: CVA/TIA Admit Date/Time: 02/13/23 21:52 Admit Provider: Joaquim Rodriguez Attending Provider: Joaquim Rodriguez Primary Care Provider: Diane Fitzgerald ED Provider: Brooks Williamson Discharge Data Discharge Date/Time-TO BE ENTERED AT DEPARTURE: 02/13/23 23:24
[2023-02-13] MEDS: Omnipaque 350 MG/ML 100 ML BTL IJ (20:58)
[2023-02-13] MEDS: Normal Saline - Diluent 50 ML VIAL IJ (20:58)
--- NOTE | 2023-02-13 21:00 | RT.EKG_ITS ---
APPROVED REPORT Exam: Resting ECG Reason for Exam: stroke Patient Location: E HR:70 bpm ECG Measurements Heart Rate 70 AXIS SD 298 P 42 QRSd 59 QRS 67 QT 384 T 76 QTc 423 Conclusion Sinus rhythm...normal P axis, V-rate 60- 99 Multiple ventricular premature complexes...V complexes w/ short R-R intervls Prolonged SD interval...SD >220, V-rate 50- 90 Consider left ventricular hypertrophy...(S V1+R V5/V6) >3.25mV Narrow complex normal sinus rhythm at a rate of 70. Normal axis. Intervals within normal limits. N o ST segment abnormalities. T wave inversion in aVL. T wave inversion slightly more pronounced comp ared to prior. Prior dated earlier this year. Multiple PVCs.
--- NOTE | 2023-02-13 21:58 | HPE_ITS ---
Date of service: 02/13/23 Time of Service: 21:58 Assessment and Plan Assessment and plan (1) TIA (transient ischemic attack): Status: Acute Assessment and plan: Appears to be higher risk TIA or ischemic stroke. CTA pending to evaluate carotid disease or large vessel occlusion/thrombosis. Started DAPT and high- dose statin, will transition lisinopril to captopril for goal SBP around 160. Monitor on telemetry, neurologic checks, ordered echocardiogram. Ordered MRI brain and will need PT/OT evaluations. Symptoms are mild and she is well outside the timeframe for thrombolytics. (2) Pulmonary emboli: Assessment and plan: Remote and provoked by surgery, no longer anticoagulated. (3) Hypertension: Assessment and plan: See above, need to avoid overcorrection. History of Present Illness History of Present Illness Chief Complaint: Dizziness and slurred speech Narrative: This 82-year-old female is accompanied by family who reports that she was doing well last night, however this morning around 9 AM she complained of some unstea diness while ambulating which was new. They also noticed some difficulty with word finding but more with understanding her speech was was a bit slurred. She denied any headache or focal weakness. No syncope, fever, chest pain. States that her history includes carotid stenosis but she is not on any antiplatelet agents. Has been compliant with her antihypertensives although has been seen recently with orthostatic hypotension. No positional lightheadedness noted today, more a feeling of being off balance. No history of stroke or TIA. Review of Systems All systems reviewed & are unremarkable except as noted in HPI and below PFSH All Active Problems (Updated 02/13/23 @ 22:06 by Phi Pope MD) TIA (transient ischemic attack) (Acute) Cystocele, midline (Chronic) repair 2002, not succcessful Generalized osteoarthrosis (Chronic) Heberden's nodes and bilateral knee pain Mitral valve regurgitation (Chronic 04/03/13) Rectocele (Chronic) Tubular adenoma (Chronic) 11/19/14; DR. 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 MPI DVT (deep venous thrombosis) 09/2021-associated with PE, postoperatively Hypertension Malignant neoplasm of female breast (06/10/88) 1985-right; bilateral mastectomy and reconstruction Pulmonary emboli 09/2021-bilateral, diagnosed at [facility],. occurred Postoperatively, treated with Eliquis, plan 3-month course Restless legs syndrome (~09/2022) Diagnosed on sleep study September 2022. No treatment, asymptomatic. Surgical History Abdominal hysterectomy (~2002) Appendectomy AGE 16 Augmentation mammoplasty (~1986) S/P mastectomy for breast cancer Bilateral salpingectomy with oophorectomy (~2002) Breast, Mastectomy Bilateral Cataract extraction status, left eye (~06/14/18) Cataract extraction status, right eye (~05/24/18) S/P colonoscopy (~03/26/21) 11/19/14 Tonsillectomy Family History Mother , AGE 54 Neoplasm BREAST Father , AGE 59 Neoplasm LYMPHNODE SARCOMA Sister Neoplasm CERVIX/ RIGHT LUNG Brother , AGE 65 Neoplasm LUNG Brother Heart disease 4 BYPASS SURGERIES AND PACEMAKER Brother No problems noted. Sister Diabetes Neoplasm AGE 52 AND 69 BREAST Son Asthma Daughter Depression Nephew Primary cancer of bone marrow Paternal family history Alzheimer disease Maternal Family history Cancer 8 family members Maternal Grandfather , AGE 52 SURGICAL COMPLICATIONS No problems noted. Paternal Grandfather , AGE 64 Lung cancer Maternal Grandmother , AGE 58 Cancer Paternal Grandmother , AGE 81 OLD AGE No problems noted. Social History Smoking/Tobacco Use Status: Never Second Hand Exposure: Yes Smoking risk assessment performed?: Yes Alcohol Intake: current Alcohol Intake frequency: holidays/special occasions only Drug use: Never Substance use type: does not use Counseling given: Yes Counseling provided: none Caregiver/Support person: No Household members: spouse Housing: house Communication Needs: None Do you need help understanding health information?: Never Pets and animals: No Sexually active: No Do you think of yourself as: straight/heterosexual Current gender identity: female What is your relationship status?: How often do you talk on the phone with friends or family?: twice per week How often do you get together with friends or relatives?: once per week How often do you attend nondenominational or jewish services?: 4 or more times per year Do you belong to any clubs or organized social groups?: no Panel score (0-1 are the most socially isolated patients): 3 What type of physical activity do you participate in: walking Duration: 15-30 minutes/day Frequency: daily Audrey/Samaritan: [employer]beterian Special audrey needs: No Seatbelt use: always Drive intox or ride w/intox trolley coach driver: No Do you feel safe at home: Yes Do you feel safe in your relationship?: Yes Additional Social history: Patient verbalized Sometimes I get yelled at but never hit; RN reinforced that should patient feel unsafe, services to help are available and she can contact her MD for assistance as well. Patient didn't express any immediate need. Meds Allergies and Home Medications Allergies Allergy/AdvReac Type Severity Reaction Status Date / Time Penicillins Allergy Unknown Skin Rash Verified 01/18/23 13:25 Home Medications Medication Instructions Recorded Confirmed Type [id number] tablet 1 ea PO DAILY 03/22/13 02/13/23 History multivitamin 1 ea PO DAILY 03/22/13 02/13/23 History atorvastatin 20 mg tablet 20 mg PO QHS #90 tabs 06/03/22 02/13/23 Rx pyridostigmine bromide 60 mg tablet See Rx Instructions PO BID PRN 08/19/22 02/13/23 Rx dizziness #60 tabs cyanocobalamin (vitamin B-12) 1,000 mcg PO DAILY 12/09/22 02/13/23 History 1,000 mcg capsule lisinopril 10 mg tablet 10 mg PO HS #90 tabs 12/22/22 02/13/23 Rx Exam Narrative Exam Narrative: She is in no acute distress HEENT pupils are equal, round, reactive to light, no conjunctival pallor or scleral icterus. No facial droop noted and family confirms her appearance is at baseline. Oral mucosa moist with no erythema or exudate on tongue protrudes midline Neck supple, no lymphadenopathy or thyromegaly, carotid pulses normal and symmetric without bruits CV regular, no murmur or gallop, no JVD Lungs clear bilaterally Abdomen soft, nontender, bowel sounds normal, no organomegaly or masses, no b ruits Extremities no peripheral edema, distal pulses are normal and symmetric Skin no rash, normal turgor Neurologic extraocular movements are intact, speech is a bit thick which is improved but definitely different from baseline according to family who was present, strength and sensation are normal and symmetric, DTRs slightly hyperreflexic in the lower extremities, no ataxia noted Results Imaging Additional studies: Reviewed her telemetry which confirms sinus rhythm throughout, systolic blood pressures have been between 170 and 200, reviewed her head CT which showed an old left basal ganglia infarct. Initial laboratory studies are unremarkable. Her ABCD2 score is 5. Labs 02/13/23 19:15 02/13/23 19:15 Labs: Laboratory Results - last 24 hr 02/13/23 02/13/23 02/13/23 19:15 19:15 19:15 WBC 4.89 RBC 4.55 Hgb 13.5 Hct 41.9 MCV 92 MCH 29.7 MCHC 32.2 RDW 12.4 Plt Count 189 MPV 10.2 Immature Gran % 0.2 Neutrophils % 53.6 Lymphocytes % 31.9 Monocytes % 13.3 Eosinophils % 0.8 Basophils % 0.2 Nucleated RBC % 0.0 Absolute Neutrophils 2.62 Absolute Lymphocytes 1.56 Absolute Monocytes 0.65 Absolute Eosinophils 0.04 Absolute Basophils 0.01 PT 9.9 INR 1.0 Sodium 139 Potassium 4.3 Chloride 101 Carbon Dioxide 31.5 Anion Gap 6.5 BUN 18 Creatinine 0.8 Est GFR (CKD-EPI 2020) 73.52 Glucose 77 Calcium 9.7 Magnesium 2.2 Total Bilirubin 0.3 AST 19 ALT 27 Alkaline Phosphatase 95 Troponin I < 50 Total Protein 7.2 Albumin 3.9 Urine Color Urine Clarity Urine pH Ur Specific Nine[place] Urine Protein Urine Ketones Urine Blood Urine Nitrite Urine Bilirubin Urine Urobilinogen Ur Leukocyte Esterase Urine RBC Urine WBC Ur Epithelial Cells Urine Crystals Urine Bacteria Urine Mucus Ur Culture Indicated? Urine Glucose Urine Opiates Screen Urine Methadone Screen Ur Barbiturates Screen Ur Tricyclics Screen Ur Amphetamines Screen U Benzodiazepines Scrn Urine Cocaine Screen Ur THC Screen 02/13/23 02/13/23 02/13/23 19:15 19:15 21:19 WBC RBC Hgb Hct MCV MCH MCHC RDW Plt Count MPV Immature Gran % Neutrophils % Lymphocytes % Monocytes % Eosinophils % Basophils % Nucleated RBC % Absolute Neutrophils Absolute Lymphocytes Absolute Monocytes Absolute Eosinophils Absolute Basophils PT INR Sodium Potassium Chloride Carbon Dioxide Anion Gap BUN Creatinine Est GFR (CKD-EPI 2020) Glucose Calcium Magnesium Total Bilirubin AST ALT Alkaline Phosphatase Troponin I Cancelled Total Protein Albumin Urine Color Yellow Urine Clarity Clear Urine pH 7.0 Ur Specific Nine[place] 1.015 Urine Protein Negative Urine Ketones Negative Urine Blood Negative Urine Nitrite Negative Urine Bilirubin Negative Urine Urobilinogen 0.2 Ur Leukocyte Esterase Trace H Urine RBC 0-2 Urine WBC 0-2 Ur Epithelial Cells Rare Urine Crystals Negative Urine Bacteria Negative Urine Mucus Negative Ur Culture Indicated? No Urine Glucose Negative Urine Opiates Screen Negative Urine Methadone Screen Negative Ur Barbiturates Screen Negative Ur Tricyclics Screen Negative Ur Amphetamines Screen Negative U Benzodiazepines Scrn Negative Urine Cocaine Screen Negative Ur THC Screen Negative Last Vital Signs Temp 36.8 C 02/13/23 18:05 Pulse 57 L 02/13/23 18:05 Resp 14 02/13/23 19:29 BP 181/78 H 02/13/23 18:05 Pulse Ox 98 02/13/23 18:05 Time Spent Time spent with Patient: 55-74 minutes Time was spent: preparing to see the patient(eg.review tests), obtaining and/or reviewing separately otained hiistory, ordering medications,tests, procedures, referring, communicating with other health manager progressive care, indepentently interpreting results, counseling the patient and care coordination
--- NOTE | 2023-02-13 22:02 | DI.VRAD_ITS ---
Addendum created by Hang Billy MD on 02/13/2023 10:24:06 PM EDT: Findings discussed with Shant JIMÉNEZ at time of interpretation. Initial report created on 02/13/2023 10:01:53 PM EDT: PROCEDURE INFORMATION: Exam: CTA Head With Contrast, Arteriography Exam date and time: 02/13/2023 8:55 PM Age: 82 years old Clinical indication: Other: Dysarhria since 9 a, dysmetria on L TECHNIQUE: Imaging protocol: Computed tomographic angiography of the head with contrast. Exam focused on the arteries. 3D rendering (Not supervised by radiologist): MIP and/or 3D reconstructed images were created by the technologist. Radiation optimization: All CT scans at this facility use at least one of these dose optimization techniques: automated exposure control; mA and/or kV adjustment per patient size (includes targeted exams where dose is matched to clinical indication); or iterative reconstruction. Contrast material: OMNIPAQUE 350; Contrast volume: 85 ml; Contrast route: INTRAVENOUS (IV); COMPARISON: CT HEAD - STROKE PROTOCOL 02/13/2023 6:31 PM FINDINGS: ANTERIOR CIRCULATION: Right internal carotid artery: Intracranial segment is patent with no significant stenosis. No aneurysm. Right middle cerebral artery: No occlusion or significant stenosis. No aneurysm. Right anterior cerebral artery: The A2 through A4 segments of the right anterior cerebral artery are relatively diminutive compared to the left. A segment of the distal A2 /proximal A3 portion of the right anterior cerebral artery (images [id number] of axial series 10) is intermittently barely perceptible, decreased in degree of contrast opacification, very suspicious for embolus. Left internal carotid artery: Intracranial segment is patent with no significant stenosis. No aneurysm. Left middle cerebral artery: No occlusion or significant stenosis. No aneurysm. Left anterior cerebral artery: No occlusion or significant stenosis. No aneurysm. POSTERIOR CIRCULATION: Right vertebral artery: No occlusion or significant stenosis. No aneurysm. Left vertebral artery: No occlusion or significant stenosis. No aneurysm. Basilar artery: No occlusion or significant stenosis. No aneurysm. Right posterior cerebral artery: No occlusion or significant stenosis. No aneurysm. Left posterior cerebral artery: No occlusion or significant stenosis. No aneurysm. Brain: No definite mass, mass effect, or midline shift. Cerebral ventricles: No ventriculomegaly. Bones/joints: Unremarkable. No acute fracture. Soft tissues: Unremarkable. Other findings: Preserved origin the posterior cerebral arteries bilaterally. IMPRESSION: The A2 through A4 segments of the right anterior cerebral artery are relatively diminutive compared to the left. A segment of the distal A2 /proximal A3 portion of the right anterior cerebral artery (images [id number] of axial series 10) is intermittently barely perceptible, decreased in degree of contrast opacification, very suspicious for embolus. PROCEDURE INFORMATION: Exam: CTA Neck With Contrast Exam date and time: 02/13/2023 8:55 PM Age: 82 years old Clinical indication: Other: Dysarhria since 9 a, dysmetria on L TECHNIQUE: Imaging protocol: Computed tomographic angiography of the neck with contrast. 3D rendering (Not supervised by radiologist): MIP and/or 3D reconstructed images were created by the technologist. Contrast material: OMNIPAQUE 350; Contrast volume: 85 ml; Contrast route: INTRAVENOUS (IV); COMPARISON: CT HEAD - STROKE PROTOCOL 02/13/2023 6:31 PM FINDINGS: Right common carotid artery: No stenosis. No dissection or occlusion. Right internal carotid artery: Approximately 50% short-segment luminal stenosis of the proximal right internal carotid artery secondary to mixed atherosclerotic plaque. Right external carotid artery: No occlusion or stenosis of the origin. Left common carotid artery: Atherosclerosis of the left carotid bulb and proximal left internal carotid artery without significant luminal narrowing. No thrombosis or occlusion. Left internal carotid artery: See Left common carotid artery finding. Left external carotid artery: No occlusion or stenosis of the origin. Right vertebral artery: No stenosis. No dissection or occlusion. Left vertebral artery: No stenosis. No dissection or occlusion. Soft tissues: Normal. No significant soft tissue swelling. Bones/joints: No acute fracture. IMPRESSION: No acute vascular findings. REFERENCES: NASCET CRITERIA. The degree of stenosis in the cervical segment of the internal carotid artery is based on NASCET criteria. Normal is no stenosis. Mild is less than 50% stenosis. Moderate is 50-69% stenosis. Severe is 70% to 99% stenosis. Total occlusion is no detectable patent lumen. Dictated and Authenticated by: Hang Billy MD. Ordering:ALAN Arce MD
[2023-02-14] VITALS (56 sets, daily range): BP systolic 77–187; BP diastolic 44–110; PULSE 53–74; RESP 12–23; TEMP 35.9–37.2; O2SAT 92–97
[2023-02-14] MEDS: Atorvastatin 40 MG TAB 80 MG PO ×2 (00:05→20:41)
[2023-02-14] MEDS: Clopidogrel 75 MG TAB PO ×2 (00:05→08:09)
[2023-02-14] MEDS: Aspirin 81 MG CHEW PO ×2 (00:06→08:09)
--- NOTE | 2023-02-14 00:30 | RT.EKG_ITS ---
APPROVED REPORT Exam: Resting ECG Reason for Exam: possible st depression on tele Patient Location: I HR:58 bpm ECG Measurements Heart Rate 58 AXIS HI 277 P 97 QRSd 79 QRS 64 QT 426 T 76 QTc 419 Conclusion Sinus rhythm...normal P axis, V-rate 50- 99 Prolonged HI interval...HI >220, V-rate 50- 90 Left ventricular hypertrophy...multiple voltage criteria Nonspecific T abnrm, anterolateral leads...T <-0.10mV, I aVL V2-V6 Baseline wander in lead(s) V6
[2023-02-14 07:55] LABS: HCT 39.8 % (36.0-46.0); HGB 13.2 g/dL (11.2-15.7); MCH 29.9 pg (27.0-33.0); MCHC 33.2 % (32.0-36.0); MCV 90 fL (80-95); MPV 10.7 fL (8.0-11.0); Platelet Count 182 10^3/uL (130-400); RBC 4.42 10^6/uL (3.93-5.22); RDW 12.5 % (11.7-14.6); RDW-SD 41.2 fL; WBC 4.29 10^3/uL (4.4-10.8)
[2023-02-14 08:14] LABS: Anion Gap 9.7 mmol/L (3-11); BUN 14 mg/dL (7-18); CO2 29.3 mmol/L (21.0-32.0); CREATININE 0.7 mg/dL (0.55-1.02); Calcium 9.3 mg/dL (8.5-10.1); Chloride 102 mmol/L (98-107); Glucose 92 mg/dL (74-106); Potassium 3.8 mmol/L (3.5-5.1); Sodium 141 mmol/L (136-145)
--- NOTE | 2023-02-14 10:05 | INITIAL_ITS ---
Date of service: 02/14/23 Time of Service: 10:05 Care Management Initial Assmt Initial Assessment REASON FOR HOSPITALIZATION:: [id number] stroke PREVIOUS FUNCTIONAL STATUS/SOCIAL/FAMILY SUPPORTS:: Resides in [place], with [place]. CURRENT FUNCTIONAL STATUS:: Urgent transfer to ICU for stroke. ADVANCE DIRECTIVES:: On file; Rc as agent, Yazmin as alternate. Has patient been provided with info about the portal/API?: Yes Did the patient sign up for the portal?: Yes CODE STATUS:: Full Code INSURANCE COVERAGE / FINANCIAL ISSUES:: MVP MCR Replacement PRIMARY CARE PHYSICIAN:: Diane Fitzgerald POTENTIAL DISCHARGE NEEDS:: Outpatient follow up. PATIENT/FAMILY EDUCATION NEEDS:: Review discharge instructions, discuss Ask Me Three ANTICIPATED BARRIERS TO DISCHARGE:: None identified. TRANSPORTATION:: Via private vehicle with family. PLAN:: Laurie will have an extensive work up for CVA to include scheduled MRIs tomorrow with and without contrast. MD has also consulted patient's own neurologist, [facility] neurology, Speech Therapy, PT and OT; discharge planning dependent on results of testing, evaluation recommendations and patient wishes. CM continues to follow. PFSH All Active Problems (Updated 02/14/23 @ 11:47 by Joaquim Rodriguez MD) CVA (cerebral vascular accident) (Acute) TIA (transient ischemic attack) (Acute) Cystocele, midline (Chronic) repair 2002, not succcessful Generalized osteoarthrosis (Chronic) Heberden's nodes and bilateral knee pain Mitral valve regurgitation (Chronic 04/03/13) Rectocele (Chronic) Tubular adenoma (Chronic) 11/19/14; DR. 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 MPI DVT (deep venous thrombosis) 09/2021-associated with PE, postoperatively Hypertension Malignant neoplasm of female breast (06/10/88) 1985-right; bilateral mastectomy and reconstruction Pulmonary emboli 09/2021-bilateral, diagnosed at [facility],. occurred Postoperatively, treated with Criss plan 3-month course Restless legs syndrome (~09/2022) Diagnosed on sleep study September 2022. No treatment, asymptomatic. Surgical History Abdominal hysterectomy (~2002) Appendectomy AGE 16 Augmentation mammoplasty (~1986) S/P mastectomy for breast cancer Bilateral salpingectomy with oophorectomy (~2002) Breast, Mastectomy Bilateral Cataract extraction status, left eye (~06/14/18) Cataract extraction status, right eye (~05/24/18) S/P colonoscopy (~03/26/21) 11/19/14 Tonsillectomy Family History Mother , AGE 54 Neoplasm BREAST Father , AGE 59 Neoplasm LYMPHNODE SARCOMA Sister Neoplasm CERVIX/ RIGHT LUNG Brother , AGE 65 Neoplasm LUNG Brother Heart disease 4 BYPASS SURGERIES AND PACEMAKER Brother No problems noted. Sister Diabetes Neoplasm AGE 52 AND 69 BREAST Son Asthma Daughter Depression Nephew Primary cancer of bone marrow Paternal family history Alzheimer disease Maternal Family history Cancer 8 family members Maternal Grandfather , AGE 52 SURGICAL COMPLICATIONS No problems noted. Paternal Grandfather , AGE 64 Lung cancer Maternal Grandmother , AGE 58 Cancer Paternal Grandmother , AGE 81 OLD AGE No problems noted. Social History Smoking/Tobacco Use Status: Never Second Hand Exposure: Yes Smoking risk assessment performed?: Yes Alcohol Intake: current Alcohol Intake frequency: holidays/special occasions only Drug use: Never Substance use type: does not use Counseling given: Yes Counseling provided: none Caregiver/Support person: No Household members: spouse Housing: house Communication Needs: None Do you need help understanding health information?: Never Pets and animals: No Sexually active: No Do you think of yourself as: straight/heterosexual Current gender identity: female What is your relationship status?: How often do you talk on the phone with friends or family?: twice per week How often do you get together with friends or relatives?: once per week How often do you attend yarsanism or zoroastrianism services?: 4 or more times per year Do you belong to any clubs or organized social groups?: no Panel score (0-1 are the most socially isolated patients): 3 What type of physical activity do you participate in: walking Duration: 15-30 minutes/day Frequency: daily Audrey/Jewish: [employer] Special audrey needs: No Seatbelt use: always Drive intox or ride w/intox local hazmat driver: No Do you feel safe at home: Yes Do you feel safe in your relationship?: Yes Additional Social history: Patient verbalized Sometimes I get yelled at but never hit; RN reinforced that should patient feel unsafe, services to help are available and she can contact her MD for assistance as well. Patient didn't express any immediate need.
--- NOTE | 2023-02-14 10:30 | DI.CT_ITS ---
Exam(s) CT HEAD - STROKE PROTOCOL EXAM: CT HEAD - STROKE PROTOCOL CLINICAL HISTORY: stroke. TECHNIQUE: Imaging Protocol: Axial computed tomography images with coronal and sagittal reformatted images were created and reviewed COMPARISON: CT CT HEAD - STROKE PROTOCOL from 02/13/[address] BRAIN NECK CTA from 02/13/2023 FINDINGS: Ventricles and Extra axial spaces: Normal in size and morphology for the patient's age. Hemorrhage: None. Cerebral parenchyma: No evidence of acute infarct or mass. Old left basal ganglia infarct. White m atter changes of small vessel disease. Midline shift: None. Brainstem/Cerebellum: Normal. Calvarium: Normal. Visualized Paranasal sinuses/Mastoids: Clear. Soft Tissues: Unremarkable. IMPRESSION: No acute intracranial process. RADIATION DOSE DELIVERED: 654.12mGy.cm Total DLP DATA REPOSITORY: All CT scans at this facility are submitted to the National Radiology Data Registry (NRDR) Dose Index Registry (DIR) with the [employer] (ACR). RADIATION OPTIMIZATION: All CT scans at this facility use at least one of these dose optimization te chniques: automated exposure control; mA and/or kV adjustment per patient size (includes targeted exa ms where dose is matched to clinical indication); or iterative reconstruction.
--- NOTE | 2023-02-14 11:03 | DI.VRAD_ITS ---
PROCEDURE INFORMATION: Exam: CT Head Without Contrast Exam date and time: 02/14/2023 10:51 AM Age: 82 years old Clinical indication: Stroke-like symptoms; Antony upper extremity weakness; Additional info: No cta ordered at times TECHNIQUE: Imaging protocol: Computed tomography of the head without contrast. Other technique: STROKE PROTOCOL was implemented. COMPARISON: CT HEAD - STROKE PROTOCOL 02/13/2023 6:31 PM FINDINGS: Brain: Stable areas of very low-density in the periventricular white matter consistent with sequelae of chronic small vessel ischemic change. Old infarct in the left basal ganglia. No mass identified.. No hemorrhage. No mass effect. Cerebral ventricles: No ventriculomegaly. Paranasal sinuses: Visualized sinuses are unremarkable. No fluid levels. Mastoid air cells: Visualized mastoid air cells are well aerated. Bones/joints: Unremarkable. No acute fracture. Soft tissues: Unremarkable. IMPRESSION: No acute intracranial abnormality. ASSESSMENT: ASPECTS (Prema Stroke Program Early CT Score) is 10. Dictated and Authenticated by: Shira Shabazz MD. Ordering:[facility] Michael March MD
--- NOTE | 2023-02-14 11:22 | PGE_ITS ---
Date of Service Date of service: 02/14/23 Time of Service: 11:22 Assessment and Plan Assessment and plan (1) CVA (cerebral vascular accident): Status: Acute Assessment and plan: I discussed her case w/ Dr. Laine Esteves, neurology, [facility] [place]; he included in her ddx: [place]'s paralysis, although patient had no witnessed seizure but her spell of decreased cognition could have been the seizure but no tonic/clonic activity was seen and patient was w/ her daughter at the onset of today's episode. She may have had transient global ischemia from low flow d/t her hypotension. Certainly her neurologic status has improved w/ better BP (SBP 150's to 160's), he also raised the concern of brain mets from remote breast cancer, and suggested getting contrast enhanced MRI brain tomorrow. Goal will remain the same, i.e. DAPT (plavix, asa), high dose atorvastatin, maintain SBP on the higher side, i.e. >150 mm; check echo and obtain local neuro consult, P.T., O.T. and S.T. consults; check HbA1c and lipid panel. (2) TIA (transient ischemic attack): Status: Acute Assessment and plan: as above. I do believe that this was a CVA and not TIA but the good news is that she has no significant occlusions of her major cerebral or carotid vessels. I think she has some distal MCA territory narrowing that was susceptible to her hypotension. (3) Hypertension: Assessment and plan: patient was put on captopril 12.5 mg tid replacing her lisnopril 10 mg; I have stopped any BP meds for now and will allow passive HTN (i.e. SBP up to 210, DBP up to 120) for next 48 hr then start to reduce her BP by 10 to 15% with ultimate goal to keep her BP under 150. Subjective Subjective Interval history since last seen: Patient was admitted for TIA/CVA symptoms that began yesterday around 9 am including dysarthric speech, balance problems but reportedly no focal paresis, CT and CTA head were done. Noncontrast CT scan of the head last night was read as showing chronic ischemic changes including old left basal ganglier lacunar infarct. No acute findings. CTA of the head neck was performed last night and was reported as showing diminutive narrowing of A2 through A4 segments of the right anterior cerebral artery with possible embolus of the distal A2/proximal A3 portion of the right anterior cerebral artery. This was reviewed by Dr. Valencia from [facility] neurology last night she was felt not to be clinically significant and did not correlate with the patient's symptoms. Patient was admitted last night for treatment of TIA versus CVA. Per the admitting hospitalist last night her symptoms had improved although she still had some residual dysarthric speech compared to her baseline according to her family who are present. Her strength and sensation were normal. This morning around 10:30 AM I am a nurse practitioner called to evaluate the patient because of new onset right-sided weakness and severe aphasia. Upon my evaluation the patient she was densely hemiplegic on the right unable to lift her arm off the bed or her leg off the bed. She had marked right facial droop and was neglecting her right side. Speech was unintelligible. Her blood pressure was 77/44, HR 68, RR 20, afebrile and SPO2 96%. MBS was 125 mg/dL. I immediately ordered bolus saline 250 mL wide open and called for stroke alert. Within 15 minutes her BP came up to 156 systolic and patient was sent down to CT scan. Prior to her CT she was already showing improvement in her right hemiplegia as she was now able to lift both her right arm and right leg off the bed but still had significant drift and speech was still dysarthric but was improving. Since return to ICU she now is able to hold the right arm and leg off the bed w/out drift and speech remains slightly dysarthric but now intelligible and she is alert and able to communicate her name, date and location. Exam Narrative Exam Narrative: Kacey initially was not alert when I evaluated her at 1030 but after correcting her hypotension she is more alert responsive able to correctly state where she is at able to state her name. Speech is still slightly dysarthric but intelligible. Still has a slight right facial droop. Extraocular motion is fully intact she has no gross visual field deficits on confrontation. Neck is supple normal carotid pulses regular. Rhythm is sinus rhythm. Lungs are clear to auscultation Heart is regular rate and rhythm no appreciable murmur rub Neuro exam as stated above she is now alert and oriented but still with slight dysarthric speech slight right facial droop over the right nasolabial fold as w ell as the corner of her mouth. Motor exam reveals that she no longer has a drift of her right arm or right leg right hand grasp is slightly weaker than the left but she has good strength in her feet with dorsiflexion plantarflexion of her feet as well as flexion at the hips. Sensory exam is grossly intact in all 4 extremities but some diminished sensation over the right face. Visual smith are grossly intact and extraocular motions intact. Objective Last Vital Signs Temp 36.6 C 02/14/23 10:40 Pulse 68 02/14/23 10:40 Resp 20 02/14/23 10:40 BP 77/44 L 02/14/23 10:40 Pulse Ox 96 02/14/23 10:40 Laboratory Results - last 24 hr 02/13/23 02/13/23 02/13/23 19:15 19:15 19:15 WBC 4.89 RBC 4.55 Hgb 13.5 Hct 41.9 MCV 92 MCH 29.7 MCHC 32.2 RDW 12.4 Plt Count 189 MPV 10.2 Immature Gran % 0.2 Neutrophils % 53.6 Lymphocytes % 31.9 Monocytes % 13.3 Eosinophils % 0.8 Basophils % 0.2 Nucleated RBC % 0.0 Absolute Neutrophils 2.62 Absolute Lymphocytes 1.56 Absolute Monocytes 0.65 Absolute Eosinophils 0.04 Absolute Basophils 0.01 PT 9.9 INR 1.0 Sodium 139 Potassium 4.3 Chloride 101 Carbon Dioxide 31.5 Anion Gap 6.5 BUN 18 Creatinine 0.8 Est GFR (CKD-EPI 2020) 73.52 Glucose 77 Calcium 9.7 Magnesium 2.2 Total Bilirubin 0.3 AST 19 ALT 27 Alkaline Phosphatase 95 Troponin I < 50 Total Protein 7.2 Albumin 3.9 Urine Color Urine Clarity Urine pH Ur Specific [place] Urine Protein Urine Ketones Urine Blood Urine Nitrite Urine Bilirubin Urine Urobilinogen Ur Leukocyte Esterase Urine RBC Urine WBC Ur Epithelial Cells Urine Crystals Urine Bacteria Urine Mucus Ur Culture Indicated? Urine Glucose Urine Opiates Screen Urine Methadone Screen Ur Barbiturates Screen Ur Tricyclics Screen Ur Amphetamines Screen U Benzodiazepines Scrn Urine Cocaine Screen Ur THC Screen 02/13/23 02/13/23 02/13/23 19:15 19:15 21:19 WBC RBC Hgb Hct MCV MCH MCHC RDW Plt Count MPV Immature Gran % Neutrophils % Lymphocytes % Monocytes % Eosinophils % Basophils % Nucleated RBC % Absolute Neutrophils Absolute Lymphocytes Absolute Monocytes Absolute Eosinophils Absolute Basophils PT INR Sodium Potassium Chloride Carbon Dioxide Anion Gap BUN Creatinine Est GFR (CKD-EPI 2020) Glucose Calcium Magnesium Total Bilirubin AST ALT Alkaline Phosphatase Troponin I Cancelled Total Protein Albumin Urine Color Yellow Urine Clarity Clear Urine pH 7.0 Ur Specific [place] 1.015 Urine Protein Negative Urine Ketones Negative Urine Blood Negative Urine Nitrite Negative Urine Bilirubin Negative Urine Urobilinogen 0.2 Ur Leukocyte Esterase Trace H Urine RBC 0-2 Urine WBC 0-2 Ur Epithelial Cells Rare Urine Crystals Negative Urine Bacteria Negative Urine Mucus Negative Ur Culture Indicated? No Urine Glucose Negative Urine Opiates Screen Negative Urine Methadone Screen Negative Ur Barbiturates Screen Negative Ur Tricyclics Screen Negative Ur Amphetamines Screen Negative U Benzodiazepines Scrn Negative Urine Cocaine Screen Negative Ur THC Screen Negative 02/14/23 02/14/23 07:18 07:18 WBC 4.29 L RBC 4.42 Hgb 13.2 Hct 39.8 MCV 90 MCH 29.9 MCHC 33.2 RDW 12.5 Plt Count 182 MPV 10.7 Immature Gran % Neutrophils % Lymphocytes % Monocytes % Eosinophils % Basophils % Nucleated RBC % Absolute Neutrophils Absolute Lymphocytes Absolute Monocytes Absolute Eosinophils Absolute Basophils PT INR Sodium 141 Potassium 3.8 Chloride 102 Carbon Dioxide 29.3 Anion Gap 9.7 BUN 14 Creatinine 0.7 Est GFR (CKD-EPI 2020) 86.30 Glucose 92 Calcium 9.3 Magnesium 2.0 Total Bilirubin AST ALT Alkaline Phosphatase Troponin I Total Protein Albumin Urine Color Urine Clarity Urine pH Ur Specific [place] Urine Protein Urine Ketones Urine Blood Urine Nitrite Urine Bilirubin Urine Urobilinogen Ur Leukocyte Esterase Urine RBC Urine WBC Ur Epithelial Cells Urine Crystals Urine Bacteria Urine Mucus Ur Culture Indicated? Urine Glucose Urine Opiates Screen Urine Methadone Screen Ur Barbiturates Screen Ur Tricyclics Screen Ur Amphetamines Screen U Benzodiazepines Scrn Urine Cocaine Screen Ur THC Screen Time Spent with Patient Time Spent with Patient: >50 minutes Time was spent: preparing to see the patient(eg.review tests), obtaining and/or reviewing separately otained hiistory, ordering medications,tests, procedures, referring, communicating with other health resident care supervisor (nursing, neurology (Dr. Esteves)), indepentently interpreting results, counseling the patient (and patient's daughter) and care coordination
--- NOTE | 2023-02-14 11:31 | NUR.NOTE ---
Nursing Note: this nurse was alerted by charge nurse maida that this pt was unable to speak. This nurse went in room 209 to assess pt. pt unable to speak at this time. Right side weakness, left side intact. pt had right sided facial droop. pt presented with facial drooling. pt transferred to bed from chair. VS taken, see worklist. BS was 125. pt transferred from bed to stretcher and taken down to radiology for a CT. pt transfered to ICU.
[2023-02-14] MEDS: Normal Saline 250 ML IV (11:40)
[2023-02-14 12:02] LABS: HCT 39.5 % (36.0-46.0)
[2023-02-14] MEDS: Famotidine 20 MG TAB PO ×2 (13:13→20:41)
--- NOTE | 2023-02-14 15:03 | NUR.NOTE ---
Nursing Note: Patient is reporting new pain in her left hand--does not go up arm. Denies any other pain, SOB, Dizzyness. VS within parameters as ordered. Dr. Rodriguez Notified.
[2023-02-15] VITALS (36 sets, daily range): BP systolic 117–179; BP diastolic 63–88; PULSE 51–73; RESP 12–31; TEMP 36.8–37.3; O2SAT 96–98
--- NOTE | 2023-02-15 | DI.MRI_ITS ---
Exam(s) MR BRAIN WO/W EXAM: MR BRAIN WO/W CLINICAL HISTORY: ischemic stroke, CVA, hx breast cancer; r/o mets. TECHNIQUE: Multiplanar multisequence MRI of the brain was performed. CONTRAST MATERIAL: IV Contrast: A 9 ML of Dotarem contrast administered. COMPARISON: MR MR BRAIN WO from 06/10/[address] HEAD - STROKE PROTOCOL from 02/14/2023 FINDINGS: VENTRICLES AND EXTRA AXIAL SPACES: Normal in size and morphology for the patient's age. HEMORRHAGE: None. CEREBRAL PARENCHYMA: Area restricted diffusion in the left basal ganglia consistent with acute lacuna r infarct. This is located anterior and adjacent to the previously existing lacunar infarct. No spa ce-occupying lesion identified. Moderate scattered foci high signal in the white matter bilaterally consistent with sequela of chronic microvascular ischemia. MIDLINE SHIFT: None. BRAINSTEM/CEREBELLUM: Normal. CALVARIUM: Normal. ENHANCEMENT: No suspicious enhancement identified. VISUALIZED PARANASAL SINUSES/MASTOIDS: Clear. OTHER FINDINGS: None. IMPRESSION: Acute lacunar infarct left basal ganglia. Adjacent old left basal ganglia lacunar infarct. No evidence of metastatic disease. DATA REPOSITORY:
--- NOTE | 2023-02-15 | DI.US_ITS ---
APPROVED REPORT EXAM: Comprehensive 2D, Doppler, and color-flow Echocardiogram Patient Location: In-Patient Room/Bed: [id number] Manager Plan: Leena Coates RDCS (AE) Indications: TIA/Stroke Echo Enhancing Agent Indication: Rule out Shunt Agent(s) / Amount(s) Used: Agitated Saline 20.0 cc Comments: Contrast study was performed with 2 IV injections of 10ccs of agitated normal saline, at re st and with cough. Patient was unable to cooperate with maneuvers. Negative contrast study for shunt flow. Other Information Study Quality: Adequate. Technically limited study due to inability to position patient exam done sup ine bedside. Conclusion Normal left ventricular wall thickness and chamber size. Ejection fraction is 60%. Wall motion is n ormal Normal right ventricular size and systolic function Both atria are normal in size No intracardiac shunting is identified with injection of agitated saline Trileaflet aortic valve without stenosis or regurgitation Mildly thickened mitral leaflets with mild systolic prolapse. There is mild eccentric mitral regurgi tation Normal tricuspid valve with trace to mild regurgitation. Estimated right ventricular systolic pressu re is 31 mmHg Wall motion Left Ventricle The left ventricle is normal size. The left ventricular systolic function is normal. The left ventric ular ejection fraction is within the normal range. There is normal left ventricular wall thickness. T here is normal LV segmental wall motion. There is no ventricular septal defect visualized. LVEF is 60 %. Right Ventricle The right ventricle is normal size. The right ventricular systolic function is normal. Atria The left atrium size is normal. The right atrium size is normal. The interatrial septum is intact wit h no evidence for an atrial septal defect. Saline bubble contrast intravenous injection does not demo nstrate PFO. Aortic Valve The aortic valve is normal in structure. Aortic valve is probably trileaflet. There is no aortic valv ular stenosis. No aortic regurgitation is present. Mitral Valve Mitral leaflets are mildly thickened No evidence of mitral valve stenosis. Mild mitral regurgitation . Mild mitral valve prolapse. Tricuspid Valve The tricuspid valve is normal in structure. There is no tricuspid valve stenosis. Trace to mild tricu spid regurgitation. The RVSP is 30.8 mmHg. Pulmonic Valve Pulmonic valve is not well visualized. There is no pulmonic valvular stenosis. There is no pulmonic v alvular regurgitation. Great Vessels The aortic root is normal in size. Ascending aorta is not well visualized. Aortic arch is not well vi sualized. IVC is normal in size and collapses >50% with inspiration. Pericardium There is no pericardial effusion. 2D Dimensions IVSD d PLAX 0.77 cm F: 0.6-1.0 LV Vol A2C d MOD 46.2 mL LVPW d PLAX 0.80 cm F: 0.6 - 1.0 LV Vol A4C d MOD 65.0 mL LVID d PLAX 3.92 cm F: 3.8 - 5.2 LV EF A4C MOD 65.4 % LVDs 2.45 cm F: 2.2 - 3.5 LV EF A2C MOD 59.5 % Ao Root d 3.25 cm F: 2.7 - 3.3 LV EF Biplane MOD 60.5 % LV EF Teichholz 66.6 % LVEF (Ng's) 60.47 % F: 54 - 74 LV Volume 54.87 mL F: 46 - 106 LV Volume Index 35.86 mL/m2 F: 29 - 61 LV Vol Biplane MOD 54.9 mL FS 36.25 % M-Mode TAPSE 2.50 cm (M/F) >1.7 LV Diastology MV E' medial 0.060 (>0.07 m/s) E/A Ratio 0.9 MV E' lateral 0.070 (>0.1 m/s) MV E Vmax 0.74 (0.4-1.3 m/s) MV A Vmax 0.85 (0.4-1.3 m/s) Aortic Valve LVOT Vmax 0.98 m/s LVOT Peak Grad 3.9 mmHg LVOT Mean Grad 2.1 mmHg LVOT Diam s 1.95 cm AoV Peak Grad 8.0 mmHg LVOT SV 65.51 mL AoV Mean Grad 3.8 mmHg AoV Area VTI 2.20 cm2 Mitral Valve MV DT 254 (160-240 msec) MV Vmax TIPS 0.87 m/s MV Mean Grad 1.6 (<2mmHg) MV VTI 0.326 m Pulmonary Valve PV Mean Grad 1.2 mmHg RVOT Peak Gr. 0.95 mmHg RVOT Mean Gr. 0.50 mmHg RVOT VTI 0.100 m RVOT Vmax 0.49 m/s Tricuspid Valve TR Peak Grad 27.8 mmHg TR Vmax 2.64 m/s RA Pressure 3.00 mmHg RVSP (TR) 30.8 mmHg
[2023-02-15 07:30] LABS: Hemoglobin A1C 5.7 % (<5.7)
[2023-02-15 07:41] LABS: Cholesterol 140 mg/dL (<200); HDL Cholesterol 79 mg/dL (40-60)
[2023-02-15 07:56] LABS: Triglyceride <25 mg/dL (<150)
[2023-02-15 08:07] LABS: LDL CHOLESTEROL 50 mg/dL (<100)
--- NOTE | 2023-02-15 08:50 | PGE_ITS ---
Date of Service Date of service: 02/15/23 Time of Service: 08:50 Assessment and Plan Assessment and plan (1) CVA (cerebral vascular accident): Status: Acute Assessment and plan: Patient is demonstrated progressive recovery from her initial event. I think yesterday's dense hemiplegia was precipitated by hypotension causing decreased cerebral perfusion and what is probably a milieu of small vessel disease. CTA did not show any large vessel occlusions. Patient remains on DAPT (Plavis and ASA) and high dose statin. We are awating MRI brain w/ and w/out contrast (contrast enhancement was recommended by Dr. Esteves from [facility] [place] neurology to r/o any metastatic disease as the patient is a breast cancer survivor. We are awaiting consultations from neurology, S.T., P.T. and O.T. If S.T. clears her then I will upgrade her diet from dysphagia to regular cardiac diet. I am anticipating she can be dc home this afternoon if ok w/ neuro and P.T. (2) TIA (transient ischemic attack): Status: Acute Assessment and plan: as above (3) Hypertension: Assessment and plan: Patient was put on captopril on admission which led to her supine hypotension. She already has orthostatic hypotension documented on tilt table test. Unclear as to the etiology but has been on pyridostigmine for her orthostasis. She may benefit from midodrine or fludrocortisone. She says that she wears support stockings at home, although it is not clear as to whether or not these are presciption stockings, i.e. Jobst w/ 20 to 30 cm compression rating. I have kept her off her BP meds (lisinopril) for the time being as she should h ave permissive hypertension for first 48 hr of stroke. She has been off BP meds since yesterday. (4) Orthostatic hypotension: Status: Chronic Assessment and plan: as above Subjective Subjective Interval history since last seen: Patient is feeling markedly better. She feels that her speech has come back. Her motor deficits have totally resolved. She denies any headache or nausea or visual symptoms. Transthoracic echocardiogram was performed this morning with bubble study. Results are pending. MRI of the brain with and without contrast is pending. I told the patient once we have all the results and Dr. Bran has seen her as well as speech therapy and physical therapy evaluated her and we can discuss discharge planning. I explained to her that in regards to her hyper tension I think it is better that she run a little higher blood pressure particular for the first couple days after her stroke. Apparently she has had problems with orthostatic hypotension as well as essential hypertension. Patient was started on pyridostigmine by Dr. Bran in August 2022 for treatment of her orthostatic symptoms. Exam Narrative Exam Narrative: Lissette is alert and oriented person place time circumstance. HEENT her right facial droop appears to be resolving. Speech is much more clear accounting for her [place] accent. Full extraocular motion intact visual smith grossly intact. Normal facial mimetic muscle movement. Normal shoulder strength as well as normal arm and hand strength. There is no drift when I had her hold her arms out. Legs and feet show normal strength with dorsiflexion and plantarflexion at the ankles as well as hip flexion extension. Sensory exam is intact to her both arms and legs to light touch. Lungs are clear to auscultation Heart is regular rate and rhythm without murmur rub Abdomen soft and nontender nondistended Objective Last Vital Signs Temp 36.8 C 02/15/23 04:41 Pulse 61 02/15/23 04:41 Resp 15 02/15/23 04:41 BP 148/67 H 02/15/23 04:01 Pulse Ox 97 02/14/23 14:54 Laboratory Results - last 24 hr 02/14/23 02/15/23 02/15/23 11:46 05:50 05:50 Hgb 13.0 Hct 39.5 Hemoglobin A1c 5.7 Triglycerides <25 Total Cholesterol 140 LDL Cholesterol Direct 50 LDL Cholesterol, Calc TNP HDL Cholesterol 79 TSH 0.50 Time Spent with Patient Time Spent with Patient: 35-49 minutes Time was spent: preparing to see the patient(eg.review tests), ordering medications,tests, procedures, referring, communicating with other health care provider, indepentently interpreting results, counseling the patient and care coordination
[2023-02-15] MEDS: Cyanocobalamin 500 MCG TAB 1000 MCG PO (09:13)
[2023-02-15] MEDS: Clopidogrel 75 MG TAB PO (09:13)
[2023-02-15] MEDS: Multivitamin TAB 1 TAB PO (09:13)
[2023-02-15] MEDS: Aspirin 81 MG CHEW PO (09:13)
[2023-02-15] MEDS: Famotidine 20 MG TAB PO ×2 (09:13→20:18)
--- NOTE | 2023-02-15 10:13 | W.SPSTE ---
Date of service: 02/15/23 Time of Service: 10:13 Subjective Clinical (Bedside) Swallow Evaluation Cognitive-Communication bedside screening Speech Language Pathology Patient referred for Cognitive/Communication and Swallow evaluations from Dr Rodriguez given suspected CVA with dysarthric speech and suspected difficulties swallowing. Precautions: Fall, Standard, Full Code SUBJECTIVE: Patient received alert/awake, agreeable to evaluation, able to communicate wants/needs effectively; able to demonstrate comprehension of recommendations for safe p.o. intake upon discharge once deemed medically stable.? Patient was sitting fully upright in bed (HOB was elevated) and her daughter was also present. Patient and daughter both reporting that she feels she is largely back to baseline this morning, which is a marked improvement over yesterday. MD also reporting significant improvement/recovery as of this morning since he last saw the patient yesterday. Patient's 1st language is Guyanese but she has lived in [place] for a long time and is competent in Grenadian as well. HPI: Pt is an 82 year old female with history of carotid stenosis, orthostatic hypotension, chronic memory changes, and prior breast cancer, DVT/PE, TIA, admitted 02/13 with TIA/CVA symptoms that began yesterday around 9 am including dysarthric speech, balance problems but reportedly no focal paresis. On the morning of 02/14, she demonstrated new onset R sided weakness and severe aphasia and R facial droop and R neglect, unintelligible speech. She was found with low blood pressure and symptoms largely corrected along with hypotension. At that time family reported only mild residual speech symptoms which appear resolved today. CT/MRI's revealed both acute and chronic lacunar L BG infarcts Predisposing dysphagia risk factors: age Clinical signs of possible chronic dysphagia:n/a Precipitating dysphagia risk factors / triggering event:CVA BRAIN MRI 02/15/23: IMPRESSION: Acute lacunar infarct left basal ganglia.? Adjacent old left basal ganglia lacunar infarct. No evidence of metastatic disease. BRAIN CT 02/14/23 IMPRESSION: No acute intracranial process. IMPRESSIONS & PLAN: Patient presents with speech differences likely only attributable to her accent/2nd language status at this time. According to her daughter, her speech and communication are back to baseline this morning. Regarding language processing, she presented only with very subtle word-finding difficulties also likely exacerbated by language difference rather than disorder secondary to CVA. Patient presents with WFL pharyngeal swallow function at this time. She does have mild difficulty chewing tougher solids due to upper dentures, but this is baseline LOF. Recommend soft solids diet and thin liquids. No Further TILESETTER services: not warranted, if further concerns arise patient is welcome to return for outpatient TILESETTER. Please reconsult if neurologic status changes. Instrumentation: N/A ? Diet Texture Modification(s): IDDSI Level(s) SOLIDS 6-Soft & Bite-Sized Solids (baseline diet due to dentition) LIQUIDS 0-Thin Liquids Medication Intake: Whole with 4-Extremely Thick Liquids RISK MANAGEMENT: HOB upright as tolerated; upright for all PO intake. Encourage physical mobility as tolerated. Oral hygiene BID/2x per day and before/after PO intake using friction with toothbrush on all oral structures as tolerated ? Level of Assistance/Supervision: Independent PO intake only when awake/alert? Strategies/Adaptations/Assistive Equipment: Reduce auditory and/or visual distractions when eating Small sips and bites when eating Slow rate of intake Posture/Positioning Needs: Maintain upright position at least 30 minutes after meals PFSH All Active Problems?(Updated 02/13/23 @ 22:06 by Phi Pope MD) TIA (transient ischemic attack) (Acute) Cystocele, midline (Chronic) repair 2002, not succcessfulGeneralized osteoarthrosis (Chronic) Heberden's nodes and bilateral knee pain Mitral valve regurgitation (Chronic 04/03/13) Rectocele (Chronic) Tubular adenoma (Chronic) 11/19/14; DR. TRUJILLO 2020, tubular adenoma X 2 rec only prnUrgency incontinence (Chronic 07/17/15) Sensorineural hearing loss (SNHL) of both ears (Chronic) Right shoulder pain (Chronic) Memory changes (Chronic) Transient ischemic attack involving left internal carotid artery (Chronic) Essential hypertension (Chronic) Involuntary jerky movements (Chronic) left legOrthostatic hypotension (Chronic) negative event monitor Medical History?(Updated 02/13/23 @ 22:06 by Phi Pope MD) Breast implant [facility]2021, [facility] [place]; [place]. MPI DVT (deep venous thrombosis) 09/2021-associated with PE, postoperativelyHypertension Malignant neoplasm of female breast (06/10/88) 1986-right; bilateral mastectomy and reconstruction Pulmonary emboli 09/2021-bilateral, diagnosed at [facility],.? occurred Postoperatively, treated with Eliclarita plan 3-month courseRestless legs syndrome (~09/2022) Diagnosed on sleep study September 2022.? No treatment, asymptomatic. Surgical History? Abdominal hysterectomy (~2002) Appendectomy AGE 16Augmentation mammoplasty (~1986) S/P mastectomy for breast cancerBilateral salpingectomy with oophorectomy (~2002) Breast, Mastectomy Bilateral Cataract extraction status, left eye (~06/14/18) Cataract extraction status, right eye (~05/24/18) S/P colonoscopy (~03/26/21) 11/19/14Tonsillectomy ? OBJECTIVE: Respiratory: room air tolerates well Language: Grossly WFL, L1 is Guyanese, L2 is Grenadian. See WAB-R results below Hearing: WFL at close distance Mental Status: Alert and Oriented person, place, time, event Recall of current events intact Speech: Per family she is back to baseline. Screening activities conducted: WFL Speech and Non-speech AMR/SMR's, WFL Automatic speech and conversational speech, revealed no deficits not attributable to language difference. Oral Motor Exam: ? Dentition ? Partially edentulous ? With partial dentures (top) ? Oral Mucosa ? Moist ? Good oral care ? CN V - Trigeminal ? Jaw Movement ? WFL ? CN VII ? Labial/Facial ? WFL ? CN IX ? Palate ? WFL ? CN X ? Laryngeal ? Vocal quality ? WFL ? Volitional cough ? Sharp & strong ? CN XII ? Lingual ? WFL ? Volitional Swallow ? Robust laryngeal elevation ? [place] Swallow Protocol Results ? PASS: Complete/uninterrupted without s/sx aspiration ? Food items tested: ?? IDDSI 0: via straw, consecutive sips IDDSI 4: Yogurt via tsp x3 bites IDDSI 7: Cracker x 4 bites Oral phase: Reduced rotary mastication pattern, mild prolonged mastication in setting of upper dentures, otherwise WFL Pharyngeal phase: WFL WAB-R Bedside The Bedside Western Aphasia Battery-Revised?(Bedside Record Form), a shortened version of the Western Aphasia Battery Revised (WAB-R), was administered to sample overall language abilities; it is designed to evaluate a patient's language function following stroke, dementia, or other acquired neurological disorder. (Kyle, 2006). WAB-R Bedside?Subtest Scores?are indicated below: Subtest?? Score SPONTANEOUS SPEECH ? Information Content 10/10? Fluency / Grammatical Competence / Paraphasias 9/10 ? AUDITORY VERBAL COMPREHENSION ? Yes/No Questions 10/10 ? Sequential Commands 10/10 ? REPETITION 9/10 ? NAMING & WORD FINDING ? Object Naming 9/10 ? Bedside Aphasia Score: 95 (borderline, errors likely attributed to Grenadian as L2 status and ?memory changes impacting her ability to repeat long sentence [id number]. Comprehension tasks including complex arbitrary directions were 100% accurate. --- Provided education to: Patient, Family Topics Addressed: anatomy/physiology of swallowing and speech/language mechanisms, impact of CVA on swallowing and communication, overt s/sx to monitor for re: potential aspiration of food / liquids, recommendations for improved oral care, relationship between respiratory function changes and deglutition, Rationale for recommendations as outlined below Outcome: Verbalized/demonstrated understanding Time spent: 45 minutes Coding Diagnoses CPT Codes SPEECH SOUND LANG COMPREHEN - [id number] ([id number]) EVALUATE SWALLOWING FUNCTION - [id number] ([id number])
[2023-02-15] MEDS: Gadoterate meglumine 20 ML VIAL IVP (12:03)
[2023-02-15] MEDS: Normal Saline Flush 10 ML SYR IVP (12:04)
--- NOTE | 2023-02-15 14:29 | CMPROGNOTE_ITS ---
Date of service: 02/15/23 Time of Service: 14:29 Care Management Progress Note Progress Note Text Progress Note Text: S/O: Laurie is lying in bed when CM met with her. She is accompanied by her and daughter. Laurie had a short conversation with this commercial loan underwriter, her speech is slurred. She tells me she is tired and unable to walk. Her is quite anxious and would like an medical update. Hospitalist is notified, and will call him via phone later. RN notified. Neurology consult is still pending. Awaiting EEG and PT/OT consults. CM will follow. A: 82 year old female admitted to [facility] for CVA vs. Ischemic Stroke P: Laurie continues to require close monitoring and further medical work up and is admitted to ICU level care. She had an MRI and ST consult today. Neurology consult pending. has also consulted patient's own neurologist, PT and OT; discharge planning dependent on results of testing, evaluation recommendations and patient wishes. CM continues to follow.
--- NOTE | 2023-02-15 15:56 | NCONE_ITS ---
Date of service: 02/15/23 Time of Service: 15:56 Assessment and Plan Assessment and plan (1) CVA (cerebral vascular accident): Status: Acute (2) Dysarthria: Status: Acute Assessment and plan: Ms. Shirley is admitted with acute ischemic stroke, with acute worsening of symptoms in the setting of hypotension, manifested by dysarthria and right hemiparesis, of unclear etiology at this time, though likely due to small vessel disease. Work-up: -Telemetry with 30 day cardiac monitoring at discharge Medications: -aspirin 81mg daily for secondary stroke prevention -clopidogrel 75mg daily for secondary stroke prevention x 30 days only -atrovastatin 80mg daily for secondary stroke prevention - ok to reduce to 20mg daily at discharge which was her home dose Other: -Allow permissive hypertension through tomorrow am which wiill be 48hr post relapse and then ok to slowly reduce BP to goal 120-140 systolic -Physical therapy for leg weakness, gait training -Occupation therapy for upper extremity weakness, activities of daily living -Speech therapy for speech She should follow-up in the neurology clinic in 4-6 weeks. History of Present Illness History of Present Illness Chief Complaint: stroke Narrative: Handedness: right. HPI: Ms. Shirley is an 82 year-old with hypertension, hyperlipidemia, prior TIA/stroke, ROHIT, prior breast cancer, prior post-operative DVT/PE, and orthostatic hypotension. Her daughter Yazmin is at bedside with her. I previously met Ms. Shirley in Aug 2022 x 1 for symptoms of orthostatic hypotension which have improved with the use of pyridostigmine. She [facility] ER on 02/13/23 with dysarthria, imbalance, and ?L leg weakness that had started that am. Her presenting BP was 181/78. She was not given tpa as she was outside of the time window. Her symptoms were also mild and resolving by the end of the day. Then on 02/14/23 at ~1030am, Ms. Shirley was noted to have acute right hemiparesis and severe dysarthria. Her BP was 77/44 with a HR of 68. She was given 250cc IVF which increased her BP to 150s systolic and near resolution of her symptoms. Today, she notes ongoing dysarthria but with no other neurological symptoms. She has no dysphagia. She has not seen PT/OT as yet. Of note, she was on clopidogrel 75mg daily which was changed to aspirin 81mg daily in September after she had a nose bleed. Aspirin was stopped in November 2022 after she had another nose bleed. She had a further nose bleed about 2 weeks ago. None of these were significant. She has been started on DAPT on 02/13/23. She is on atorvastatin 20mg daily as an outpatient though had been planning to stop this in an effort to reduce her medications. She has not stopped it as yet however. Work-up: -CTH (02/13/23): Old L basal ganglia lacunar infarct. Chronic vascular changes. I reviewed these images personally and this is my personal interpretation. -CTA head/neck (02/13/23): Cortid plaque bilaterally without stenosis. Dominant R vert and ?occlusion vs stenosis vs congenital distal L vertebral artery. Distal R BERTHA stenosis vs occlusion vs embolus. origin L [employer] IN[employer]. I reviewed these images personally and this is my personal interpretation. -CTH (02/14/23): No acute findings. Unchanged from previous. I reviewed these images personally and this is my personal interpretation. -MRI brain w/o (02/15/23): Acute L basal ganglia ischemic stroke, next to previous L basal ganglia lacunar infract which has evidence of prior microhemorrhage (this was seen on previous MR imaging in May 2022). I reviewed these images personally and this is my personal interpretation. -Labs: A1c 5.7, LDL 50 -TTE (02/15/23): Limited secondary to patient positioning. EF 60%, no wall motion abnormalities. LA normal. No PFO. Review of Systems All systems reviewed & are unremarkable except as noted in HPI and below PFSH All Active Problems (Updated 02/15/23 @ 19:33 by Sarah Bran MD) Dysarthria (Acute) CVA (cerebral vascular accident) (Acute) TIA (transient ischemic attack) (Acute) Cystocele, midline (Chronic) repair 2002, not succcessful Generalized osteoarthrosis (Chronic) Heberden's nodes and bilateral knee pain Mitral valve regurgitation (Chronic 04/03/13) Rectocele (Chronic) Tubular adenoma (Chronic) 11/19/14; DR. TRUJILLO 2020, tubular adenoma X 2 rec only prn Urgency incontinence (Chronic 07/17/15) Sensorineural hearing loss (SNHL) of both ears (Chronic) Right shoulder pain (Chronic) Memory changes (Chronic) Transient ischemic attack involving left internal carotid artery (Chronic) Essential hypertension (Chronic) Involuntary jerky movements (Chronic) left leg Orthostatic hypotension (Chronic) negative event monitor Medical History (Updated 02/15/23 @ 19:33 by Sarah Bran MD) Breast [place] 08/2021[place] [facility] [place] +ETT; neg. MPI DVT (deep venous thrombosis) 09/2021-associated with PE, postoperatively Hypertension Malignant neoplasm of female breast (06/10/88) 1985-right; bilateral mastectomy and reconstruction Pulmonary emboli 09/2021-bilateral, diagnosed at [facility],. occurred Postoperatively, treated with Eliquis, plan 3-month course Restless legs syndrome (~09/2022) Diagnosed on sleep study September 2022. No treatment, asymptomatic. Surgical History Abdominal hysterectomy (~2002) Appendectomy AGE 16 Augmentation mammoplasty (~1986) S/P mastectomy for breast cancer Bilateral salpingectomy with oophorectomy (~2002) Breast, Mastectomy Bilateral Cataract extraction status, left eye (~06/14/18) Cataract extraction status, right eye (~05/24/18) S/P colonoscopy (~03/26/21) 11/19/14 Tonsillectomy Family History Mother , AGE 54 Neoplasm BREAST Father , AGE 59 Neoplasm LYMPHNODE SARCOMA Sister Neoplasm CERVIX/ RIGHT LUNG Brother , AGE 65 Neoplasm LUNG Brother Heart disease 4 [employer] PACEMAKER Brother No problems noted. Sister Diabetes Neoplasm AGE 52 AND 69 BREAST Son Asthma Daughter Depression Nephew Primary cancer of bone marrow Paternal family history Alzheimer disease Maternal Family history Cancer 8 family members Maternal Grandfather , AGE 52 SURGICAL COMPLICATIONS No problems noted. Paternal Grandfather , AGE 64 Lung cancer Maternal Grandmother , AGE 58 Cancer Paternal Grandmother , AGE 81 OLD AGE No problems noted. Social History (Reviewed 02/13/23 @ 22:00 by STEVIE Hahn Smoking/Tobacco Use Status: Never Second Hand Exposure: Yes Smoking risk assessment performed?: Yes Alcohol Intake: current Alcohol Intake frequency: holidays/special occasions only Drug use: Never Substance use type: does not use Counseling given: Yes Counseling provided: none Caregiver/Support person: No Household members: spouse Housing: house Communication Needs: None Do you need help understanding health information?: Never Pets and animals: No Sexually active: No Do you think of yourself as: straight/heterosexual Current gender identity: female What is your relationship status?: How often do you talk on the phone with friends or family?: twice per week How often do you get together with friends or relatives?: once per week How often do you attend mu-ism or christianity services?: 4 or more times per year Do you belong to any clubs or organized social groups?: no Panel score (0-1 are the most socially isolated patients): 3 What type of physical activity do you participate in: walking Duration: 15-30 minutes/day Frequency: daily Audrey/Druze: Episcopalian Special audrey needs: No Seatbelt use: always Drive intox or ride w/intox route delivery driver: No Do you feel safe at home: Yes Do you feel safe in your relationship?: Yes Additional Social history: Patient verbalized Sometimes I get yelled at but never hit; RN reinforced that should patient feel unsafe, services to help are available and she can contact her MD for assistance as well. Patient didn't express any immediate need. Visit Medication and Allergies Active Medications Generic Name Dose Route Start Last Admin Trade Name Freq PRN Reason Stop Dose Admin Aspirin 81 mg 02/13/23 22:30 02/15/23 09:13 Aspirin 81 Mg Chew PO 81 mg DAILY MALLORY Administration Atorvastatin Calcium 80 mg 02/13/23 22:30 02/14/23 20:41 Atorvastatin 40 Mg Tab PO 80 mg QPM MALLORY Administration Clopidogrel Bisulfate 75 mg 02/13/23 22:45 02/15/23 09:13 Clopidogrel 75 Mg Tab PO 75 mg DAILY MALLORY Administration Cyanocobalamin 1,000 mcg 02/15/23 08:30 02/15/23 09:13 Cyanocobalamin 500 Mcg Tab PO 1,000 mcg DAILY MALLORY Administration Dimethicone/Zinc Oxide 0 gm 02/13/23 21:52 Cheli Protect Cream 142 Gm Tube TP PRN PRN Famotidine 20 mg 02/14/23 20:00 02/15/23 09:13 Famotidine 20 Mg Tab PO 20 mg BID MALLORY Administration Sodium Chloride 500 mls @ 0 mls/hr 02/15/23 08:31 Saline 500ml Bag IV PRN PRN As Directed IV Miscellaneous Supplies 1 each 02/15/23 08:45 Iv Access IV DIRECTED MALLORY Magnesium Hydroxide 30 ml 02/13/23 21:52 Milk Of Magnesia 30 Ml Cup PO DAILY PRN PRN Multivitamins 1 tab 02/15/23 08:30 02/15/23 09:13 Multivitamin Tab PO 1 tab DAILY MALLORY Administration Sodium Chloride 0 ml 02/15/23 08:31 02/15/23 12:04 Normal Saline Flush 10 Ml Syr IVP 10 ml PRN PRN Administration Allergies Penicillins Allergy (Unknown, Verified 01/18/23 13:25) Skin Rash Exam Narrative Exam Narrative: Physical Exam: Gen: Patient of apparent stated age, NAD Head and face: no facial or cranial abnormalities Neck: Supple, no meningismus, no occipital tenderness CV: + S1, S2, RRR, no murmur Resp: CTA B/L Abd: soft, nontender, nondistended Ext: No edema. No clubbing or cyanosis. No bony deformity. Neuro Exam: Language: fluency, naming, repetition, and comprehension intact; Mental Status: AAOx3, current events intact, fund of knowledge intact; Speech: mild-moderate dysarthria Cranial nerves: Funduscopy: not performed CN II: visual smith intact CN III, IV, : extraocular movements intact, no nystagmus, pupils symmetric and reactive to light CN V: face sensation intact to LT and PP CN VII: subtle subtle R lower face weakness CN VIII: hearing intact bilaterally CN IX, X: palate rises symmetrically CN XI: trapezius/SCM 5/5 bilaterally CN XII: protrudes tongue symmetrically Sensory: intact to LT, PP, vibration, and joint position in all extremities, absent Romberg Motor: bulk and tone intact. Fine motor movements reduced on the right. No pronator drift. Strength 5/5 throughout including the deltoids, biceps, triceps, wrist extensors, hip flexors, knee flexors, knee extensors, ankle flexors, and ankle extensors. Reflexes: 2+ at the biceps, triceps, brachioradialis, patella, and achilles t endons bilaterally; +Babinski on R; downgoing on L Coordination: FTN and HTS intact bilaterally Gait: not seen Results Last Vital Signs Temp 98.8 F 02/15/23 07:30 Pulse 55 L 02/15/23 12:31 Resp 31 H 02/15/23 12:31 BP 168/85 H 02/15/23 12:31 Pulse Ox 97 02/15/23 07:30 Labs 02/14/23 11:46 02/14/23 07:18 Labs: Laboratory Results - last 24 hr 02/15/23 02/15/23 05:50 05:50 Hemoglobin A1c 5.7 Triglycerides <25 Total Cholesterol 140 LDL Cholesterol Direct 50 LDL Cholesterol, Calc TNP HDL Cholesterol 79 TSH 0.50
--- NOTE | 2023-02-15 17:51 | PT.INIE ---
PT Notes Visit Reasons: TIA vs. Ischemic Stroke Physical Therapy Inpatient Initial Evaluation Date: 02/15/2023 Referring Doctor: Joaquim Beatty MD PT Orders: PT CONSULT: Fall safety assessment Precautions: Fall. Standard. Activity as tolerated. Patient Profile/Admitting Diagnosis: Laurie is an 82-year-old female admitted to the ICU for management of CVA, TIA, hypertension, and chronic orthostatic hypotension. PMHX: All Active Problems?(Updated 02/13/23 @ 22:06 by Phi Pope MD) TIA (transient ischemic attack) (Acute) Cystocele, midline (Chronic) repair 2002, not succcessful Generalized osteoarthrosis (Chronic) Heberden's nodes and bilateral knee pain Mitral valve regurgitation (Chronic 04/03/13) Rectocele (Chronic) Tubular adenoma (Chronic) 11/19/14; DR. TRUJILLO 2020, tubular adenoma X 2 rec only prn Urgency incontinence (Chronic 07/17/15) Sensorineural hearing loss (SNHL) of both ears (Chronic) Right shoulder pain (Chronic) Memory changes (Chronic) Transient ischemic attack involving left internal carotid artery (Chronic) Essential hypertension (Chronic) Involuntary jerky movements (Chronic) left leg Orthostatic hypotension (Chronic) negative event monitor Medical History?(Updated 02/13/23 @ 22:06 by Phi Pope MD) Breast implant status 08/2021, [place] [facility] Chest pain +ETT; neg. MPI DVT (deep venous thrombosis) 09/2021-associated with PE, postoperatively Hypertension Malignant neoplasm of female breast (06/10/88) 1985-right; bilateral mastectomy and reconstruction Pulmonary emboli 09/2021-bilateral, diagnosed at [facility],.? occurred Postoperatively, treated with Eliquis, plan 3-month course Restless legs syndrome (~09/2022) Diagnosed on sleep study September 2022.? No treatment, asymptomatic. Surgical History? Abdominal hysterectomy (~2002) Appendectomy AGE 16Augmentation mammoplasty (~1986) S/P mastectomy for breast cancer Bilateral salpingectomy with oophorectomy (~2002) Breast, Mastectomy Bilateral Cataract extraction status, left eye (~06/14/18) Cataract extraction status, right eye (~05/24/18) S/P colonoscopy (~03/26/21) 11/19/14 Tonsillectomy Social History/Home Situation: Lives with in a private home.. Independent with all aspects of ADLs prior to admisison. Per aptint and patient's daughter, has the capacity to physically provide needed physical assistance but may not have the willingness to. Equipment Owned/DME: Walking sticks Subjective: Denies headache, lightheadedness, and chest pain throughout session. Daughter Yazmin states that she will be staying with her mom for the next two weeks to help out as needed. patient is agreeable with PT services upon discharge. Objective: General Observation: Supine in bed. IV access to R brachium. Telemetry monitoring in place. Speech unclear 50% of the time. Mental Status: Alert and oriented as to person, place, time, and purpose. Able to pay attention, focus, and respond appropriately. Pain: Denies Vital Signs: WNL as closley monitored by nursing staff; HR remained WNL even after level surface ambulation ROM: Right Upper Extremity: Shoulder Flexion WFL. Shoulder abduction WFL. Elbow flexion WFL. Wrist flexion WFL. Functional opening and closing of hand WFL. Left Upper Extremity: Shoulder Flexion WFL. Shoulder abduction WFL. Elbow flexion WFL. Wrist flexion WFL. Functional opening and closing of hand WFL. Right Lower Extremity: Hip flexion WFL. Hip abduction WFL. Knee flexion WFL. Ankle dorsiflexion WFL. Ankle plantarflexion WFL. Left Lower Extremity: Hip flexion WFL. Hip abduction WFL. Knee flexion WFL. Ankle dorsiflexion WFL. Ankle plantarflexion WFL. Strength: Right Upper Extremity: Shoulder flexors 4-/5. Shoulder abductors 4-/5. Elbow flexors 4/5. Elbow extensors 4/5. Bowl Sander strong. Left Upper Extremity: Shoulder flexors 5/5. Shoulder abductors 5/5. Elbow flexors 5/5. Elbow extensors 5/5. Bowl Sander strong. Right Lower Extremity: Hip flexors 4-/5. Hip abductors 4-/5. Knee flexors 5/5. Knee extensors 4/5. Ankle dorsiflexors 4/5. Ankle plantarflexors 4/5. Left Lower Extremity: Hip flexors 5/5. Hip abductors 5/5. Knee flexors 5/5. Knee extensors 4/5. Ankle dorsiflexors 4/5. Ankle plantarflexors 4/5. Bed Mobility/Transfers: Rolling independent Supine to sit supevision Sit to stand contact guard assist Stand to sit contact guard assist Bed to bedside commode contact guard assist Bedside commode to bed contact guard assist Bed to reclining chair contact guard assist Reclining chair to bed contact guard assist Gait: Instructed patient with level surface ambulation of 200 feet requiring hand held assist. 30 feet of just supervision but daxa is reduced. Arm swing diminished. HR ranged from 77-99 bpm throughout the walk. Mildy short of breath but nor report of lightheadedness. Balance: Static Sitting: Normal Dynamic Sitting: Normal Static Standing: Good Dynamic Standing: Fair Special Tests: -Mobility Limitations Standardized Measure [facility] 6 clicks Basic Mobility Inpatient Short Form: Raw Score: 21 CMS Score: 29% deficit -4-stage balance test: Maintains feet together, semi-tandem, L full tandem (L leg leading) for 10 seconds, unable to with R full tandem (R leg leading) and one-legged stance. -Pronator Drift: Positive on R UE -Facial droop/asymmetry: Present -Rapid alternating movement: Impaired on the R UE and LE Informed Consent/Education: Patient was instructed in purpose of PT consult and plan of care. Agreeable to proceed with established PT POC to achieve personal goals. ASSESSMENT: R UE/LE relatively weaker than the L. Decreased speed and stability of gait. Speech impairment limiting ability of patient during conversations. Will need PT to address impairments and functional limitations below. Patient presents with clinical signs and symptoms consistent with current/admitting diagnoses that have resulted to mobility limitations, gait instability, generalized weakness, and overall ADL decline as demonstrated by the following impairment level findings: 1. Decreased strength to R UE/LE major muscle groups 2. Impaired sitting/standing balance 3. Impaired activity tolerance Impairments are contributing to the following functional limitations: 1. Decline in bed mobility skills 2. Decline in transfer skills 3. Difficulty with ambulation 4. Increased completion time for mobility ADL performance 5. Increased risk for falls 6. Difficulty with managing steps alone safely Patient is assessed as a 08752 moderate complexity based on the following: History: 82-year-old femal with past medical history as indicated above Examination: Demonstrable impairment in strength, balance, and mobility level with underlying impairments and functional limitations as exhibited above as well as deficit score of 29% utilizing the [facility] Mobility Inpatient Short Form Presentation: Evolving Decision Makin moderate complexity Goals: Goals X1 week 1. Supine-Sit independent 2. Sit-Supine independent 3. Sit-Stand independent 4. Stand-Sit independent with no AD 5. Bed-Chair independent with no AD 6. Chair-Bed independent with no AD 7. Independent gait on level surface with use of SPC for at least 300 feet without report of pain nor dyspnea 8. Independent stair negotiation while holding onto rails for at least 5 steps without report of pain nor dyspnea 9. Independent with home exercise program 10. Good static and dynamic standing balance/tolerance Plan of Care/Treatment Plan: 1-2x/day, 7 days/week x 1 week. Plan of care has been reviewed with the HYDROMETEOROLOGIST providing the service under Physical Therapy direction. Initiate Physical Therapy intervention for pain management as needed, strengthening, bed mobility, transfers, gait, stairs, balance training, and use of assistive device. DISCHARGE RECOMMENDATIONS: [] Home with no services [] [X] Home with services. Patient will benefit from home health PT services in order to progress mobility level using least restrictive assistive ambulatory device, assess home safety, identify additional equipment needs, and establish a functional maintenance program that will increase ability of patient to remain at home. [] Home with outpatient PT [] [] SNF for continued rehabilitation [] [] [facility] [] [] SNF versus LTC based on ability to participate and progress [] TREATMENT CODE/TIME: 9716 2 x 20 minutes, 9753 0 x 11 minutes beginning at 15:55 PM and 16:26 PM. Thank you for the opportunity to participate in the care of this patient. Esther Tamayo PT, DPT, CLT [facility] [place], [place]
[2023-02-15] MEDS: Atorvastatin 40 MG TAB 80 MG PO (20:18)
[2023-02-16] VITALS (10 sets, daily range): BP systolic 152–192; BP diastolic 79–94; PULSE 50–65; RESP 14–19; TEMP 36.1–36.6; O2SAT 97–99
[2023-02-16] MEDS: Normal Saline Flush 10 ML SYR IVP (04:10)
[2023-02-16] MEDS: Cyanocobalamin 500 MCG TAB 1000 MCG PO (08:20)
[2023-02-16] MEDS: Multivitamin TAB 1 TAB PO (08:20)
[2023-02-16] MEDS: Aspirin 81 MG CHEW PO (08:20)
[2023-02-16] MEDS: Clopidogrel 75 MG TAB PO (08:20)
[2023-02-16] MEDS: Famotidine 20 MG TAB PO (08:21)
--- NOTE | 2023-02-16 08:37 | OT.INIE ---
Occupational Therapy Notes Inpatient Occupational Therapy Evaluation Date: 02/16/23 Referring Doctor:Joaquim Rodriguez MD OT Orders: Non urgent Precautions: Fall, standard, Full PATIENT PROFILE/ADMITTING DIAGNOSIS: Pt is a 82 yea rold female who was admitted with the dx of dysarthria, CVA, TIA, cycstocele, generalized weakness. Past Medical History: All Active Problems?(Updated 02/13/23 @ 22:06 by Phi Pope MD) TIA (transient ischemic attack) (Acute) Cystocele, midline (Chronic) repair 2002, not succcessfulGeneralized osteoarthrosis (Chronic) Heberden's nodes and bilateral knee pain Mitral valve regurgitation (Chronic 04/03/13) Rectocele (Chronic) Tubular adenoma (Chronic) 11/19/14; DR. TRUJILLO 2020, tubular adenoma X 2 rec only prnUrgency incontinence (Chronic 07/17/15) Sensorineural hearing loss (SNHL) of both ears (Chronic) Right shoulder pain (Chronic) Memory changes (Chronic) Transient ischemic attack involving left internal carotid artery (Chronic) Essential hypertension (Chronic) Involuntary jerky movements (Chronic) left legOrthostatic hypotension (Chronic) negative event monitor Medical History?(Updated 02/13/23 @ 22:06 by Phi Pope MD) Breast implant status 08/2021, s/p removal at [facility] pain +ETT; neg. MPI DVT (deep venous thrombosis) 09/2021-associated with PE, postoperativelyHypertension Malignant neoplasm of female breast (06/10/88) 1985-right; bilateral mastectomy and reconstruction Pulmonary emboli 09/2021-bilateral, diagnosed at [facility],.? occurred Postoperatively, treated with Eliquis, plan 3-month courseRestless legs syndrome (~09/2022) Diagnosed on sleep study September 2022.? No treatment, asymptomatic. Surgical History? Abdominal hysterectomy (~2002) Appendectomy AGE 16Augmentation mammoplasty (~1986) S/P mastectomy for breast cancerBilateral salpingectomy with oophorectomy (~2002) Breast, Mastectomy Bilateral Cataract extraction status, left eye (~06/14/18) Cataract extraction status, right eye (~05/24/18) S/P colonoscopy (~03/26/21) 11/19/14Tonsillectomy Social History/Home Situation: Pt notes that she is (I) at her baseline level of function and was able to perform her ADLs/IADL (I) including driving. She states that she feels that she is slightly limited but functionally doing well. She does seem to have a slight visual deficit when grabbing for her fork/spoon during her eating routines at this time. She notes that she didn't notice this prior but is due to have an eye exam again soon. She has had HH services before and notes that she would be interested in them when she returns home. SUBJECTIVE: Pt states that she is going home today. She notes that her speech and her fine motor are bothersome. She reports that she would like to continue services when she leaves today. OBJECTIVE: General Observation: Pleasant, difficulty with verbal communication which makes pt emotional, Mental Status: A&Ox4 Pain: no c/o pain ROM: RUE AROM WFL L UE AROM WFL STRENGTH: RUE 5/5 throughout LUE 5/5 throughout FUNCTIONAL MOBILITY/ADLS: BATHING NT although AROM WFL DRESSING seated Dressing UE (I) with buttons/snaps and don and doffing hospital gown Dressing LE (I) with lisa and doffing (B) socks EATING (I) seated with eating routines. She has difficulty with holding her silverware in her (R) hand. But this appears to be a slight visual deficit in the (R) eye with her fine motor control. BALANCE: Static sitting Normal Dynamic Sitting Normal INFORMED CONSENT/EDUCATION: Pt instructed in purpose of OT Consult and plan of care. ASSESSMENT: Patient is a 82-year-old female referred to occupational therapy services with diagnosis of dysarthria, CVA, TIA, cycstocele, generalized OA.. Patient presents with clinical signs and symptoms consistent with dx. Pt was seen for OT consult, she is planning to discharge this afternoon at 1:00. Pt is able to perform her gross motor ADLs (I). She has difficulty with her fine motor activities at this time. She notes that she is worried about her speech and OT recommends she follow with SALESFORCE SPECIALIST post discharge. Patient is assessed as a Low 69867 complexity based on the following: History: see above Examination: see functional limitations as noted above Presentation: evolving Decision Making: low complexity GOALS Seen for OT consult only. PLAN OF CARE/TREATMENT PLAN: Discharge from skilled OT services. DISCHARGE RECOMMENDATIONS OT recommends HH services including PT/OT, SALESFORCE SPECIALIST TREATMENT TIME/MINUTES/CODES 48951, 77479, 36 minutes Monie Ferrer OTR/[facility] [place], [place]
--- NOTE | 2023-02-16 09:10 | PDOC.CMPRO ---
Date of service: 02/16/23 Time of Service: 09:10 Care Management Progress Note Progress Note Text Progress Note Text: S/O: Laurie was lying in bed visiting with her daughter when CM met with her. Her speech is more clear today. She is anticipating being discharged home soon and shares that she worked with PT and did 1 step and also notes that she has a step to get into her house. Laurie reports that her speech is better when she is not tired. She is hoping to recover quickly and states that she knows it wont happen overnight. She has no needs at this time. CM will follow. A: 82 year old female admitted to [facility] for CVA vs. Ischemic Stroke P: Anticipate Laurie will discharge home via private vehicle when medically cleared per provider. New O/E [facility] PT/OT/ST will be ordered. Laurie will follow her discharge plan of care and follow up with community providers as instructed. Anticipate follow up with PCP, Neurology and Cardiology. CM continues to follow.
--- NOTE | 2023-02-16 09:19 | PT.INDS ---
Date of service: 02/16/23 PT Notes Visit Reasons: TIA vs. Ischemic Stroke Physical Therapy Dsicharge Summary Date: 02/16/2023 Dates of Service: 02/15/2023 through 02/16/2023 This is a clinical summary of care provided for the duration of dates listed above. No charge was made in the completion of this documentation. Referring Doctor: Joaquim Beatty MD PT Orders: PT CONSULT: Fall safety assessment Precautions: Fall.? Standard.? Activity as tolerated. Patient Profile/Admitting Diagnosis:? Laurie is an 82-year-old female admitted to the ICU for management of CVA, TIA, hypertension, and chronic orthostatic hypotension.? PMHX: All Active Problems?(Updated 02/13/23 @ 22:06 by Phi Pope MD) TIA (transient ischemic attack) (Acute) Cystocele, midline (Chronic) repair 2002, not succcessful Generalized osteoarthrosis (Chronic) Heberden's nodes and bilateral knee pain Mitral valve regurgitation (Chronic 04/03/13) Rectocele (Chronic) Tubular adenoma (Chronic) 11/19/14; DR. TRUJILLO 2020, tubular adenoma X 2 rec only prn Urgency incontinence (Chronic 07/17/15) Sensorineural hearing loss (SNHL) of both ears (Chronic) Right shoulder pain (Chronic) Memory changes (Chronic) Transient ischemic attack involving left internal carotid artery (Chronic) Essential hypertension (Chronic) Involuntary jerky movements (Chronic) left leg Orthostatic hypotension (Chronic) negative event monitor Medical History?(Updated 02/13/23 @ 22:06 by Phi Pope MD) Breast implant status 08/2021, s/p removal [place] [facility] [place] Chest pain +ETT; neg. MPI DVT (deep venous thrombosis) 09/2021-associated with PE, postoperatively Hypertension Malignant neoplasm of female breast (06/10/88) 1985-right; bilateral mastectomy and reconstruction Pulmonary emboli 09/2021-bilateral, diagnosed at [facility],.? occurred Postoperatively, treated with Eliquis, plan 3-month course Restless legs syndrome (~09/2022) Diagnosed on sleep study September 2022.? No treatment, asymptomatic. Surgical History? Abdominal hysterectomy (~2002) Appendectomy AGE 16Augmentation mammoplasty (~1986) S/P mastectomy for breast cancer Bilateral salpingectomy with oophorectomy (~2002) Breast, Mastectomy Bilateral Cataract extraction status, left eye (~06/14/18) Cataract extraction status, right eye (~05/24/18) S/P colonoscopy (~03/26/21) 11/19/14 Tonsillectomy Social History/Home Situation: Lives with in a private home. Independent with all aspects of ADLs prior to admisison.? Per aptint and patient's daughter,? has the capacity to physically provide needed physical assistance but may not have the willingness to.? Equipment Owned/DME: Walking sticks Subjective: NT. See most recent WEAVE ROOM SUPERVISOR notes. Objective: General Observation: NT. See most recent WEAVE ROOM SUPERVISOR notes. Mental Status: NT. See most recent WEAVE ROOM SUPERVISOR notes.service). Pain: NT. See most recent WEAVE ROOM SUPERVISOR notes. Vital Signs: NT. See most recent WEAVE ROOM SUPERVISOR notes. ROM: Right Upper Extremity: ? Shoulder Flexion WFL. Shoulder abduction WFL. Elbow flexion WFL. Wrist flexion WFL. Functional opening and closing of hand WFL. Left Upper Extremity:? Shoulder Flexion WFL. Shoulder abduction WFL. Elbow flexion WFL. Wrist flexion WFL. Functional opening and closing of hand WFL. Right Lower Extremity: Hip flexion WFL. Hip abduction WFL. Knee flexion WFL. Ankle dorsiflexion WFL. Ankle plantarflexion WFL. Left Lower Extremity: Hip flexion WFL. Hip abduction WFL. Knee flexion WFL. Ankle dorsiflexion WFL. Ankle plantarflexion WFL. Strength: Right Upper Extremity: Shoulder flexors 4-/5. Shoulder abductors 4-/5. Elbow flexors 4/5. Elbow extensors 4/5. Twister Hand strong. Left Upper Extremity: Shoulder flexors 5/5. Shoulder abductors 5/5. Elbow flexors 5/5. Elbow extensors 5/5. Twister Hand strong. Right Lower Extremity: Hip flexors 4-/5. Hip abductors 4-/5. Knee flexors 5/5. Knee extensors 4/5. Ankle dorsiflexors 4/5. Ankle plantarflexors 4/5. Left Lower Extremity: Hip flexors 5/5. Hip abductors 5/5. Knee flexors 5/5. Knee extensors 4/5. Ankle dorsiflexors 4/5. Ankle plantarflexors 4/5. BED MOBILITY/TRANSFERS? Rolling L/R: independent Supine-sit: independent? Sit-supine: independent ? Sit-stand: independent? Stand-sit: independent ? Bed-Chair: SBA ? Chair-bed: SBA ? GAIT? Assistive Device: SPC? Weight bearing: Full Assist: SBA ? Distance:? 200 feet? Deviation: verbal cues needed for appropriate gait sequence with cane, Patient improved greatly with coaching.? ? ? Balance: Static Sitting: Normal Dynamic Sitting: Normal Static Standing: Good Dynamic Standing: Fair Special Tests: -Mobility Limitations Standardized Measure [facility] 6 clicks Basic Mobility Inpatient Short Form: Raw Score: 21? CMS Score: 29% deficit? ? ? -4-stage balance test:? Maintains feet together,? semi-tandem,? L full tandem (L leg leading) for 10 seconds,? ? unable to with R full tandem (R leg leading) and one-legged stance. -Pronator Drift: Positive on R UE -Facial droop/asymmetry: Present -Rapid alternating movement: Impaired on the R UE and LE ASSESSMENT: Patient will require continued rehabilitation efforts at home with HH PT to work on persistent functional impairments and deficits. R UE/LE relatively weaker than the L.? Decreased speed and stability of gait.? Speech impairment limiting ability of patient during conversations.? Will need HH PT to address impairments and functional limitations below. Patient continues to demonstrate with clinical signs and symptoms consistent with current/admitting diagnoses that have resulted to mobility limitations, gait instability, generalized weakness, and overall ADL decline as demonstrated by the following impairment level findings: 1.? Decreased strength to R UE/LE major muscle groups 2.? Impaired sitting/standing balance 3.? Impaired activity tolerance Impairments are continuing to contribute to the following functional limitations: 1.? Decline in bed mobility skills 2.? Decline in transfer skills 3.? Difficulty with ambulation 4.? Increased completion time for mobility ADL performance 5.? Increased risk for falls 6.? Difficulty with managing steps alone safely Goals: Goals X1 week 1. Supine-Sit independent MET 2. Sit-Supine independent MET 3. Sit-Stand independent MET 4. Stand-Sit independent with no AD NOT MET 5. Bed-Chair independent with no AD NOT MET 6. Chair-Bed independent with no AD NOT MET 7. Independent gait on level surface with use of SPC for at least 300 feet without report of pain nor dyspnea NOT MET 8. Independent stair negotiation while holding onto? rails for at least 5 steps without report of pain nor dyspnea NOT MET 9. Independent with home exercise program NOT MET 10. Good static and dynamic standing balance/tolerance NOT MET DISCHARGE RECOMMENDATIONS: [] ? Home with no services [] [X] ? Home with services.? Patient will benefit from home health PT services in order to progress mobility level using least restrictive assistive ambulatory device, assess home safety, identify additional equipment needs, and establish a functional maintenance program that will increase ability of patient to remain at home. [] ? Home with outpatient PT [] [] ? SNF for continued rehabilitation [] [] ? Oxygen Therapist Care [] [] ? SNF versus LTC based on ability to participate and progress [] TREATMENT CODE/TIME: NC Thank you for the opportunity to participate in the care of this patient. Esther Tamayo PT, DPT, CLT [facility] [place], [place]
--- NOTE | 2023-02-16 10:12 | PTTR_ITS ---
Date of service: 02/16/23 Time of Service: 09:28 PT Notes Visit Reasons: TIA vs. Ischemic Stroke Inpatient Physical Therapy Treatment Note [facility] Date: 02/16/23 PRECAUTIONS: Fall, standard, activity as tolerated. SUBJECTIVE: Patient feeling worse than yesterday, more tired, sitting up in bed, agreeable to therapy. OBJECTIVE: PAIN: none reported BED MOBILITY/TRANSFERS Rolling L/R: independent Supine-sit: independent Sit-supine: independent Sit-stand: independent Stand-sit: independent Bed-Chair: SBA Chair-bed: SBA GAIT Assistive Device: SPC Weight bearing: full Assist: SBA Distance: 200 feet Deviation: verbal cues needed for appropriate gait sequence with cane, Patient improved greatly with coaching. VITALS: monitored by nursing staff. NEURO CANDACE: Patient participates in static and dynamic standing balance challenges including half and full tandem stance, tandem walking with SPC support. THEREX: HEP created as seen below and reviewed with patient and daughter. Patient demonstrates good understanding and ability to perform all exercises. Access Code: [email or web address] URL: [email or web address] Date: 02/16/2023 Prepared by: Krystal Ortega Exercises - Standing Tandem Balance with Counter Support - 1 x daily - 7 x weekly - 3 sets - 10 reps - Tandem Walking with Support - 1 x daily - 7 x weekly - 3 sets - 10 reps - Feet Together Balance at Counter Top Eyes Closed - 1 x daily - 7 x weekly - 3 sets - 10 reps - Sit to Stand with Arms Crossed - 1 x daily - 7 x weekly - 3 sets - 10 reps - Heel Raises with Counter Support - 1 x daily - 7 x weekly - 3 sets - 10 reps - Standing Hip Abduction with Counter Support - 1 x daily - 7 x weekly - 3 sets - 10 reps - Standing Hip Extension with Counter Support - 1 x daily - 7 x weekly - 3 sets - 10 reps STAIRS: Patient ascends and descends [address] x2, once with single rail ing and SPC, once with no railing and only SPC. Standby assist. ASSESSMENT: Patient tolerates therapy well, is eager to get home. PLAN: Continue global strengthening per plan of care until patient is medically cleared for discharge. TREATMENT CODE/TIME: 78606 Gait 16, 41027 Neuro 15 minutes beginning at 9:26, 26151 Ther Ex 9 minutes beginning at 10:15.
[2023-02-16] MEDS: Lisinopril 5 MG TAB PO (11:26)
--- NOTE | 2023-02-16 15:07 | W.PM.DS.N ---
Date of service: 02/16/23 Time of Service: 15:07 DS: Diagnosis Discharge Diagnosis (1) CVA (cerebral vascular accident): Status: Acute (2) Dysarthria: Status: Acute Discharge Plan Disposition Patient Disposition: Home W/Home Health Services Condition: Improving Discharge Details Reason For Visit: TIA vs. Ischemic Stroke Admit Date/Time: 02/13/23 21:52 Admit Provider: Joaquim Rodriguez Attending Provider: Joaquim Rodriguez Primary Care Provider: Diane Fitzgerald Hospital Course Hospital Course: This is a 82-year-old female with a past medical history of hypertension as well as orthostatic hypotension who presented emergency department on 02/13/2023 with acute onset of symptoms that began at 9 AM of unsteadiness while ambulating along with dysarthric speech and aphasia. She had no syncope no headache. Her symptoms initially seem to be improving by the time she was admitted to the medical floor. She was started on dual antiplatelet therapy with aspirin and Plavix and placed on high-dose atorvastatin. Her lisinopril was held and she was placed on low-dose captopril by the admitting provider. I assumed care the next morning the patient had severe hypotension with systolic pressure in the 70s and now is having dense right-sided hemiplegia. Patient was quickly bolused with IV fluids and placed in Trendelenburg and blood pressures came back up into the 150s. Her dense hemiplegia resolved she still had residual dysarthric speech and right facial droop. Her initial CT of her brain showed an old left basal ganglier lacunar infarct but no acute abnormality her CTA on admission prior to her episode of dense hemiplegia suggested a reduced caliber to the right A2 segment distally compared to the left and an old left basal ganglier infarct but no acute infarct was visible. Neck CTA showed focal plaque at the proximal internal carotid artery causing approximately 50% stenosis of the proximal right internal carotid artery. Left internal carotid artery system showed no significant stenosis. During her episode of dense hemiplegia a repeat CT scan was performed on 02/14/2023 and showed no acute intracranial process. Patient was transition to the intensive care unit on 02/14/2023 where she was closely monitored she was given IV fluid hydration all blood pressure medications were discontinued and she was allowed to have passive hypertension. She was maintained on dual antiplatelet therapy and high-dose statins. Subsequent MRI of the brain was performed on 02/15/2023 and showed an acute lacunar infarct involving left basal ganglia adjacent to an old left basal ganglier lacunar infarct. MRI was done with contrast because of her prior history of breast cancer. There was no evidence for metastatic disease. During her acute neurologic decompensation [facility] neurology was consulted with Dr. Paula who after reviewing the case felt that since her dense hemiplegia had resolved with improvement her blood pressure he recommended to continue the current course of dual antiplatelet therapy close monitoring and high-dose statins. Did recommend getting an EEG in the event this may be a [place]'s paralysis. However since her symptoms resolved quickly it was unlikely to be due to seizure. Subsequent echocardiogram was performed on 02/15/2023 and the MRI was performed on 02/15/2023. Echo study was done with bubbles showed no atrial septal wall defect there was no intracardiac shunting she had normal left ventricular size and function LVEF 60% normal right ventricular size and function normal atrial size. She has some mild eccentric mitral regurgitation and trace of tricuspid regurgitation but no significant pulmonary hypertension. Physical therapy and Occupational Therapy and speech therapy were all consulted. Speech therapy advance her diet from a dysphagia diet to a regular diet with thin liquids. Physical therapy recommend either discharge to a SNF or discharge home with home health services including PT and OT and speech therapy. Dr. Sarah Bran saw the patient in consultation on 02/15/2023 recommend 30 days of dual antiplatelet therapy and that we could decrease her back down to her usual dose of atorvastatin. She recommended continued passive hypertension for 48 hours post CVA event and then gradual reduction in her blood pressure by starting out at half her usual dose of lisinopril which is half of a 10 mg tablet daily. At the time of discharge her lisinopril was restarted at 5 mg daily. Patient was also restarted on her pyridostigmine to treat her orthostatic hypotension. Patient was discharged home in markedly improved condition but still with some residual dysarthric speech slight right facial droop but good use of her hands and arms and legs. She still had some mild clumsiness in her right hand which was not unexpected given the location of her stroke. Patient will receive home health services including nursing, physical therapy, Occupational Therapy, speech therapy. Follow-up with Dr. Sarah Bran in 4 to 6 weeks. Follow-up with her PCP in the next week to 10 days. Home Meds and New Rx's Prescriptions: New aspirin 81 mg capsule 81 mg PO DAILY Qty: 90 0RF clopidogrel [Plavix] 75 mg tablet 75 mg PO DAILY Qty: 30 0RF Rx Instructions: take plavix 75 mg along w/ aspirin 81 mg daily x 30 days then stop plavix but continue aspirin Continued atorvastatin 20 mg tablet 20 mg PO QHS Qty: 90 3RF cyanocobalamin (vitamin B-12) 1,000 mcg capsule 1,000 mcg PO DAILY multivitamin 1 EACH tablet 1 ea PO DAILY [id number] 1 EACH tablet 1 ea PO DAILY pyridostigmine bromide 60 mg tablet See Rx Instructions PO BID Qty: 60 5RF Rx Instructions: take 30-60mg am and noon as needed for dizziness orally Changed lisinopril 10 mg tablet 5 mg PO HS Qty: 90 3RF Discharge Instructions Instructions: Clopidogrel (By mouth), Global Aphasia Exercises (DC), Dizziness (GEN), Aspiration Precautions (DC), Left Hemispheric Stroke (DC) Additional Instructions: You were treated for an acute stroke. You had a lacunar stroke in your on the left side affecting your speech and the right side of your body. You have residual facial droop and some dysarthric speech. You need to remain on your atorvastatin but we have added dual antiplatelet therapy (aspirin and plavix) for the next 30 days afterwardsyou will remain on aspirin alone. You have been fitted for 30 day cardiac event recorder. This is to look for any irregular heart rhythm called atrial fibrillation. While you were here, we kept you on a heart monitor and did not see any atrial arrhythmias. YOu had an echocardiogram which did not show any clots in the heart and your heart function was normal and showed no enlargement and no abnormal openings between the two sides of the heart (a cause for paradoxical embolism). We have ordered home health to follow up w/ you including physical therapy, a home health nurse, an occupational therapist and a speech therapist as well as a director biomedical engineering. They will work as a team with you and your doctors to coordinate services and ensure that you get the most out home rehabilitation to help you get back to as much of a normal lifestyle as possible. Your participation will be crucial to your success. We wish you the speediest of recoveries. With respect to your blood pressure medications, resume your lisinopril at half dose 5 mg daily for the next week then increase to full strength 10 mg dailly. Your blood pressure goals should be a standing blood pressure of 120 to 140 mm. It is acceptable to have higher blood pressure when lying down. Resume your pyridostigmine to prevent orthostatic hypotension. follow up w/ Dr. Bran in 4 to 6 weeks. Stand Alone Forms: Nursing Discharge Form Referrals: Diane Fitzgerald MD [Primary Care Provider] - 03/03/23 9:20 am Sarah Bran MD [ [facility] STAFF PHYSICIAN] - Activity:: Activity as Tolerated Equipment/Supplies:: Walker Diet:: Low Sodium Discharge Orders Discharge Orders: Discharge Order (Routine); Ordered 02/16/23 Ordered By: Joaquim Rodriguez Discharge Data Discharge Date/Time-TO BE ENTERED AT DEPARTURE: 02/16/23 16:10 DS: Summary Time Spent with Patient providing and/or coordinating discharge services: Greater than 30 minutes Specific discharge activities: Interview/exam of patient; review of discharge instructions, completion of prescriptions/discharge instructions; discussion w/ nursing and CM; documentation of hospital visit Status at Discharge Functional status at discharge: uses cane/walker Overall status at discharge: patient is progressing back to baseline Mental Status: mental status grossly normal Speech and Movement: speech and movement normal Mood: congruent mood Affect: normal affect Exam Narrative Exam Narrative: Laurie is sitting up in her chair. She is tearful as she fears that she will not fully recover from her stroke. I reassured her that while I can not say for certain that she will fully recover, recovery is a slow process and she needs to be determined but patient and that her participation in therapy will greatly improve her odds of recovery HEENT: she has right facial droop at the corner of her mouth, her speech is still dysarthric but intelligible; full EOMI, no VF deficits Motor: normal ROM and strength in proximal and distal UE and normal ROM and strength in both LE; fine motor control in her right hand is diminished compared to the left (she is a right hand dominant person), Sensory exam in both upper and lower limbs is preserved Lungs: clear Heart: RRR (review of her telemetry demonstrates NSR no ventriclar arrhytmia and no afib Psych Mental Status: mental status grossly normal Speech and Movement: speech and movement normal Mood: congruent mood Affect: normal affect DS: Data Vitals/I&O Vitals and I&O: Vital Signs Temperature 36.1 C L 02/16/23 07:36 Temperature Source Temporal Artery Scan 02/16/23 06:51 Pulse 59 L 02/16/23 07:36 Pulse Rhythm Regular 02/16/23 10:23 Pulse 50 L 02/16/23 04:00 Respiratory Rate 19 02/16/23 06:51 Respiratory Effort Normal, Non-Labored 02/16/23 10:23 Respiratory Depth Normal 02/16/23 10:23 Respiratory Pattern Normal 02/16/23 10:23 Blood Pressure 190/92 H 02/16/23 07:49 Blood Pressure Mean 96 02/16/23 03:59 Blood Pressure Position Supine 02/15/23 07:30 Pulse Oximetry 99 02/16/23 07:36 Oxygen Delivery Method Room Air 02/16/23 07:36 Oxygen Flow Rate 0 02/16/23 07:36 Pain Level 0 02/16/23 06:57 Intake & Output 02/15/23 02/16/23 02/16/23 23:59 11:59 23:59 Intake Total 400 / 900 140 / 140 Output Total 725 / 1650 300 / 300 Balance -325 / -750 -160 / -160 Intake: IV 20 / 20 Oral 400 / 400 120 / 120 Output: Urine 725 / 1650 300 / 300 Other: Urine Color Yellow Pale Yellow Urine Appearance Clear Clear Urine Odor None None Voiding Methods Bedside Commode Toilet PFSH All Active Problems Dysarthria (Acute) CVA (cerebral vascular accident) (Acute) TIA (transient ischemic attack) (Acute) Cystocele, midline (Chronic) repair 2002, not succcessful Generalized osteoarthrosis (Chronic) [place]'s nodes and bilateral knee pain Mitral valve regurgitation (Chronic 04/03/13) Rectocele (Chronic) Tubular adenoma (Chronic) 11/19/14; DR. 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 MPI DVT (deep venous thrombosis) 09/2021-associated with PE, postoperatively Hypertension Malignant neoplasm of female breast (06/10/88) 1985-right; bilateral mastectomy and reconstruction Pulmonary emboli 09/2021-bilateral, diagnosed at [facility],. occurred Postoperatively, treated with Eliquis, plan 3-month course Restless legs syndrome (~09/2022) Diagnosed on sleep study September 2022. No treatment, asymptomatic. Surgical History Abdominal hysterectomy (~2002) Appendectomy AGE 16 Augmentation mammoplasty (~1986) S/P mastectomy for breast cancer Bilateral salpingectomy with oophorectomy (~2002) Breast, Mastectomy Bilateral Cataract extraction status, left eye (~06/14/18) Cataract extraction status, right eye (~05/24/18) S/P colonoscopy (~03/26/21) 11/19/14 Tonsillectomy Family History Mother , AGE 54 Neoplasm BREAST Father , AGE 59 Neoplasm LYMPHNODE SARCOMA Sister Neoplasm CERVIX/ RIGHT LUNG Brother , AGE 65 Neoplasm LUNG Brother Heart disease 4 [employer]IES AND PACEMAKER Brother No problems noted. Sister Diabetes Neoplasm AGE 52 AND 69 BREAST Son Asthma Daughter Depression Nephew Primary cancer of bone marrow Paternal family history Alzheimer disease Maternal Family history Cancer 8 family members Maternal Grandfather , AGE 52 SURGICAL COMPLICATIONS No problems noted. Paternal Grandfather , AGE 64 Lung cancer Maternal Grandmother , AGE 58 Cancer Paternal Grandmother , AGE 81 OLD AGE No problems noted. Social History Smoking/Tobacco Use Status: Never Second Hand Exposure: Yes Smoking risk assessment performed?: Yes Alcohol Intake: current Alcohol Intake frequency: holidays/special occasions only Drug use: Never Substance use type: does not use Counseling given: Yes Counseling provided: none Caregiver/Support person: No Household members: spouse Housing: house Communication Needs: None Do you need help understanding health information?: Never Pets and animals: No Sexually active: No Do you think of yourself as: straight/heterosexual Current gender identity: female What is your relationship status?: How often do you talk on the phone with friends or family?: twice per week How often do you get together with friends or relatives?: once per week How often do you attend presybeterian or baptist services?: 4 or more times per year Do you belong to any clubs or organized social groups?: no Panel score (0-1 are the most socially isolated patients): 3 What type of physical activity do you participate in: walking Duration: 15-30 minutes/day Frequency: daily Audrey/Anabaptism: Cheondoism Special audrey needs: No Seatbelt use: always Drive intox or ride w/intox concrete pile driver 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 Patient didn't express any immediate need. Time Spent with Patient Time Spent with Patient: 45-69 minutes Time was spent: preparing to see the patient(eg.review tests), ordering medications,tests, procedures, referring, communicating with other health children's zoo caretaker, indepentently interpreting results, counseling the patient (And patient's daughter) and care coordination
--- NOTE | 2023-02-16 15:13 | PDOC.HHF2F ---
Home Health Referral Home Health Orders Clinical synopsis of why skilled professionals are needed: new CVA w/ residual dysarthric speech and expressive aphasia, right facial weakness and dyscoordination of her dominant right hand Medical diagnosis necessitation home health referral: New left sided CVA w/ dysarthria and right handed clumsiness and right facial paresis Registered Nurse: Check all that apply Instruct on new or changed medication(s)/assess compliance: Ordered Assess for exacerbation of medical condition, instruct patient/caregivers on signs and symptoms to report for early detection: Ordered Physical Therapist: Check all that apply Increase strength & endurance for safe mobility at home: Ordered To design/establish home maintenance program: Ordered Fall reduction therapy program for patient with history of frequent falls: Ordered Home safety evaluation and teaching/gait training including stair management (if applicable): Ordered Occupational Therapist: Evaluate and treat for patient unable to perform ADL/IADL/self-care: Ordered Upper extremity strengthening, range and motion: Ordered Speech Therapist: Check all that apply For swallow evaluation/therapy due to dysphagia: Ordered Cognition/memory: Ordered Speech/communication disorders: Ordered Pc Tech: Assist with community resources: Ordered Home Bound Status Requires the aid of supportive device (check all that apply): Walker Assistance of another person (Describe assistance and medical necessity): patient needs assistance w/ personal ADL such as bathing, dressing Patient has a condition such that leaving home is medically contraindicated (Describe): severe general weakness from CVA, gait instability Describe why leaving home would require a considerable and taxing effort: Requires frequent rest periods and Safety Concerns: describe (high risk of falls) Encounter Date and Reason: I certify that a FTF encounter for this patient was performed on February 16, 2023 and that such encounter was related to the primary reason the patient requires home health services. The encounter was conducted in the following manner: By me as the certifying physician, MALT HOUSE SUPERVISOR, PA or By an inpatient physician, MALT HOUSE SUPERVISOR or PA during an inpatient stay who communicated findings to me, Certification And Authentication I certify that I composed the above information based on my clinical judgment relating to this patient's medical condition and, if applicable, clinical findings communicated to me by the NPP or inpatient physician who performed the FTF encounter. Name of Provider that will be monitoring home health services: Diane Fitzgerald
== END 2023-02-16 16:10 | disposition home health service (06) | DRG 65 ==
LOC: ER 22:13 → MS 23:27 → ICU 02-15 10:35 → MS 02-16 06:51
PROVIDERS: Hospitalist; Student in an Organized Health Care Education/Training Program; Admitting Provider Internal Medicine; Emergency Provider Emergency Medicine; PCP Family Medicine; Visit Provider Internal Medicine
DX: I63.81 Other cerebral infarction due to occlusion or stenosis of small artery (principal); G81.91 Hemiplegia, unspecified affecting right dominant side; R47.01 Aphasia; I10 Essential (primary) hypertension; R47.1 Dysarthria and anarthria; I95.1 Orthostatic hypotension; R27.8 Other lack of coordination; R29.702 NIHSS score 2; Z86.73 Personal history of transient ischemic attack (TIA), and cerebral infarction without residual deficits; Z86.711 Personal history of pulmonary embolism; M15.9 Polyosteoarthritis, unspecified; N39.41 Urge incontinence; N81.11 Cystocele, midline; N81.6 Rectocele; I34.0 Nonrheumatic mitral (valve) insufficiency; H90.3 Sensorineural hearing loss, bilateral; R41.3 Other amnesia; G25.81 Restless legs syndrome; Z86.718 Personal history of other venous thrombosis and embolism; Z85.3 Personal history of malignant neoplasm of breast; R29.810 Facial weakness; I67.9 Cerebrovascular disease, unspecified
CPT/HCPCS: 36415; 70496; 70498; 70553; 80048; 80053; 80061; 80307; 83721; 85027; 92610; 93005; 93306; 97110; 97112; 97116; 97162; 97165; 97530; 97535; 99223; 99285; 70450; 81003; 81015; 83036; 83735; 84443; 84484; 85014; 85018; 85025; 85610; 92523; 93010; 99232; 99239; 99291; J3490

== ENCOUNTER → 2023-02-15 07:25 | Outpatient (BNVA) | payer MEDICARE, SELFPAY ==
--- NOTE | 2023-02-16 17:12 | CMDISCH_ITS ---
Date of service: 02/16/23 Time of Service: 17:13 LACE Index Scoring Tool Questions: Length of Stay (in days): 3 Was the patient admitted via the E.D.?: Yes Comorbidities: Cerebrovascular Disease E.D. Visits: 1 Answers: Total Score: 8 Risk of Readmission: Low Risk Care Management Discharge Plan Reason for Hospitalization: Stroke Discharge Plan: Laurie is discharged home via private vehicle with family. New O/E VNA services are ordered. Recommend follow up with outpatient providers and discharge plan of care as instructed. Patient will follow up with her PCP 03/03/23, as scheduled and neurology in 4-6 weeks. Patient/Family Education Needs: Review discharge instructions, limitations, medications and plan to follow up with Services Needed at Discharge: Home Health Care Services (O/E VNA RN/PT/OT/COTTON GIN YARD SUPERVISOR. )
== END ==
PROVIDERS: PCP Family Medicine; Referring Provider Family Medicine; Visit Provider Psychiatry & Neurology Neurology

== ENCOUNTER 2023-02-16 15:58 | Outpatient (RCR) | payer MEDICARE, SELFPAY | END 2023-03-11 23:59 | disposition home or self-care (01) | LOC: RT 15:58 | PROVIDERS: PCP Family Medicine; Visit Provider Family Medicine | DX: I63.9 Cerebral infarction, unspecified (principal); G45.9 Transient cerebral ischemic attack, unspecified; G47.30 Sleep apnea, unspecified | CPT/HCPCS: 93272; 93270 ==

== ENCOUNTER 2023-03-12 11:43 | Outpatient (CLI) | payer MEDICARE, SELFPAY ==
--- NOTE | 2023-03-12 11:30 | RT.EKG_ITS ---
APPROVED REPORT Exam: Resting ECG Reason for Exam: cardiac evaluation Patient Location: O HR:64 bpm ECG Measurements Heart Rate 64 AXIS FL 250 P 115 QRSd 68 QRS 74 QT 406 T 79 QTc 419 Conclusion Sinus rhythm...normal P axis, V-rate 50- 99 Prolonged FL interval...FL >220, V-rate 50- 90 Left ventricular hypertrophy...multiple voltage criteria
== END 2023-03-12 11:44 | disposition home or self-care (01) ==
LOC: DI.CARD 11:44
PROVIDERS: PCP Family Medicine; Visit Provider Internal Medicine Cardiovascular Disease
DX: Z13.6 Encounter for screening for cardiovascular disorders (principal)
CPT/HCPCS: 93010

== ENCOUNTER → 2023-03-12 13:47 | Outpatient (BNVA) | payer MEDICARE, SELFPAY | PROVIDERS: PCP Family Medicine; Referring Provider Family Medicine; Visit Provider Internal Medicine Cardiovascular Disease | DX: I49.5 Sick sinus syndrome (principal); Z86.73 Personal history of transient ischemic attack (TIA), and cerebral infarction without residual deficits; I95.1 Orthostatic hypotension; I10 Essential (primary) hypertension | CPT/HCPCS: 99214 ==

== ENCOUNTER 2023-03-22 08:04 | Outpatient (CLI) | payer MEDICARE, SELFPAY ==
--- NOTE | 2023-03-22 08:50 | W.CARDEVENT ---
Date of service: 03/22/23 Time of Service: 08:50 Cardiac Event Recorder Referring Provider:: Diane Fitzgerald Indications:: Stroke, TIA Cardiac Event Note: This is a 30-day cardiac event monitor ordered for cerebrovascular symptoms Rhythm throughout was sinus with first-degree AV block. Average heart rate was 61. Minimum was 42. There was no significant tachycardia There was no atrial fibrillation, no SVT There was 1 sinus pause lasting 4.5 seconds. This was apparently asymptomatic There were rare premature ventricular contractions
== END 2023-03-22 08:05 | disposition home or self-care (01) ==
LOC: CARDOPNVT 08:04
PROVIDERS: PCP Family Medicine; Visit Provider Internal Medicine Cardiovascular Disease
DX: G45.9 Transient cerebral ischemic attack, unspecified (principal); I44.0 Atrioventricular block, first degree
CPT/HCPCS: 93272

== ENCOUNTER → 2023-03-30 12:15 | Outpatient (BNVA) | payer MEDICARE, SELFPAY | PROVIDERS: PCP Family Medicine; Referring Provider Family Medicine; Visit Provider Psychiatry & Neurology Neurology | CPT/HCPCS: 99215 ==

== ENCOUNTER 2023-04-27 17:40 | Outpatient (CLI) | payer MEDICARE, SELFPAY ==
[2023-04-27 14:37] LABS: Vitamin B12 1182 pg/mL (193-986)
== END 2023-04-27 17:41 | disposition home or self-care (01) ==
LOC: LBO 17:40
PROVIDERS: PCP Family Medicine; Visit Provider Family Medicine
DX: R41.3 Other amnesia (principal)
CPT/HCPCS: 36415; 82607

== ENCOUNTER → 2023-05-20 09:09 | Outpatient (BNVA) | payer MEDICARE, SELFPAY | PROVIDERS: PCP Family Medicine; Referring Provider Family Medicine; Visit Provider Psychiatry & Neurology Neurology | DX: I69.322 Dysarthria following cerebral infarction (principal); I69.351 Hemiplegia and hemiparesis following cerebral infarction affecting right dominant side; I69.318 Other symptoms and signs involving cognitive functions following cerebral infarction; I69.315 Cognitive social or emotional deficit following cerebral infarction; Z79.82 Long term (current) use of aspirin; I10 Essential (primary) hypertension | CPT/HCPCS: 99214 ==

== ENCOUNTER → 2023-06-17 09:41 | Outpatient (BNVA) | payer MEDICARE, SELFPAY | PROVIDERS: PCP Family Medicine; Referring Provider Family Medicine; Visit Provider Internal Medicine Cardiovascular Disease | DX: Z09 Encounter for follow-up examination after completed treatment for conditions other than malignant neoplasm (principal); Z86.73 Personal history of transient ischemic attack (TIA), and cerebral infarction without residual deficits; I10 Essential (primary) hypertension | CPT/HCPCS: 99213 ==

== ENCOUNTER 2023-06-30 10:18 | Emergency (ER) | payer MEDICARE, SELFPAY ==
[2023-06-30 10:24] VITALS: BP 166/72; PULSE 75; RESP 18; TEMP 36.4; O2SAT 93
--- NOTE | 2023-06-30 10:24 | W.ED.GENAD ---
Discharge Plan Disposition Patient Disposition: Home Condition: Improving Discharge Details Clinical Impression: COVID, Hyponatremia Primary Care Provider: Diane Fitzgerald ED Provider: Radha Gandhi Home Meds and New Rx's Prescriptions: New Paxlovid 300 mg (150 mg x 2)-100 mg tablets,dose pack See Rx Instructions .ROUTE .COMPLEX Qty: 30 0RF Rx Instructions: take TWO 150 mg tablets of nirmatrelvir with ONE 100 mg tablet of ritonavir twice daily for 5 days DO NOT TAKE ATORVASTATIN OR PLAVIX WHILE ON PAXLOVID No Action atorvastatin 20 mg tablet 20 mg PO QHS Qty: 90 3RF citalopram 10 mg tablet 10 mg PO DAILY Qty: 30 5RF clopidogrel 75 mg tablet 75 mg PO DAILY Qty: 90 3RF lisinopril 10 mg tablet 10 mg PO HS Qty: 90 3RF (DME) compr.stocking,knee,long,small Misc See Rx Instructions .Route Qty: 12 0RF Rx Instructions: As directed multivitamin 1 EACH tablet 1 ea PO DAILY fodsukx-vhzkyrnjg-zktx 1 EACH tablet 1 ea PO DAILY aspirin 81 mg capsule 81 mg PO DAILY Qty: 90 0RF pyridostigmine bromide 60 mg tablet See Rx Instructions PO BID Qty: 60 5RF Rx Instructions: take 30-60mg am and noon as needed for dizziness orally Discharge Instructions Instructions: Hyponatremia (ED), Viral Syndrome (ED) Additional Instructions: 1. Call your primary care provider and tell them that your sodium was a little low and we recommend that you have it rechecked within a week. 2. If you take the Paxlovid do not take Plavix and atorvastatin. 3. Use salt on your food until you do have your sodium rechecked. 4. Return here for any new or worrisome symptoms. 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 The patient endorses sneezing and an occasional nonproductive cough. She denies any fevers or dysuria. She denies any changes in her speech. She has had cold symptoms for 2 days and has not been tested at home for COVID though she tells me she has been immunized. She did not lose consciousness but has been on Plavix and aspirin since her CVA and was sent in by her primary care provider because she fell and hit her head and right side. She has not had any nausea or vomiting or change from her baseline weakness. She denies any vomiting or visual changes. My plan is to obtain blood work including a CBC to evaluate her white counts and to rule out anemia as cause for her weakness. I will check her electrolytes for hypokalemia and hyponatremia. I will obtain a CT scan of her head and cervical spine without contrast. We will obtain a CT of the chest abdomen pelvis to rule out hepatic injury. Will check a urine for infection. Pneumonia should be evident on her chest CT. We will check her EKG and monitor her in the department for arrhythmias. I will check her for COVID flu and RSV. We will give her IV fluids and rule out a urinary tract infection. She does not want anything for pain. We will attempt to ambulate her and watch for signs of hypotension while in the department. Differential Diagnosis Differential Diagnosis: The infection, head injury, electrolyte abnormality, hepatic injury Medical Records Medical records reviewed: Yes I reviewed the patient's medical records. Imaging Data Radiologic Study: Imaging: CT Scan (chest, abdomen, pelvis w contrast) Radiologist's impression: IMPRESSION: 1. No significant acute trauma sequelae in the chest, abdomen, and pelvis. 2. Other findings as above. Radiologic Study #2: Imaging: CT Scan (head & c spine, noncon) Radiologist's impression: IMPRESSION: No acute intracranial findings on this noninfused CT scan of the brain.Nonacute appearing lacunar infarct left basal ganglia which/left periventricular white matter. This was discussed on brain MRI study of 02/15/2023. there is no evidence of intracranial hemorrhage, intra or extra-axial. No evidence of cervical spine fracture, malalignment, nor acute compromise of the cervical spinal canal. Lab Data Lab results reviewed: Yes I reviewed the patient's lab results. ECG Data Attestation: I personally reviewed and interpreted this ECG (s) as follows: Prior ECG tracings: available for review HPI General Date/Time Provider Initiated Documentation: 06/30/23 10:25. Limitations to Documentation: other (Dysartria from LCVA). Information obtained by: patient. HPI Narrative: The patient is an 82 yo F, on Plavix after an and ischemia LCVA on 2022, which left her with moderate R hemiparesis and dysarthria. She presents today after falling secondary to generalized weakness associated with 2 days of URI symptoms. She did hit her head, but did not lose consciousness. She also hit her right side just below the r anterior rib cage. She was told by her physician to come to the ED. The patient uses a cane intermittently. She denies headache, nausea, vomiting, neck pain, numbness, tingling or new weakness or worsening of her speech. She has been taking Coricidin for her cold symptoms. She has had sneezing but denies cough or fever. She had a sore throat which lasted about a half an hour and has since resolved. She is status post tonsillectomy. She denies any back pain, hematuria or dysuria. She has not taken any medications for the pain. Patient said the pain on her right side is mild. She denies any chest discomfort or shortness of breath. She denies any similar symptoms. She was too weak to get up off the floor. She has been immunized against COVID Related Data Home Medications Medication Instructions Recorded Confirmed ecvyhiw-qkwigbmaj-uyja tablet 1 ea PO DAILY 03/22/13 06/30/23 multivitamin 1 ea PO DAILY 03/22/13 06/30/23 aspirin 81 mg capsule 81 mg PO DAILY #90 caps 02/16/23 06/30/23 pyridostigmine bromide 60 mg tablet See Rx Instructions PO BID #60 tabs 02/16/23 06/30/23 compr.stocking,knee,long,small #12 ea 03/03/23 06/17/23 lisinopril 10 mg tablet 10 mg PO HS #90 tabs 03/03/23 06/30/23 atorvastatin 20 mg tablet 20 mg PO QHS #90 tabs 03/30/23 06/30/23 citalopram 10 mg tablet 10 mg PO DAILY #30 tabs 05/20/23 06/30/23 clopidogrel 75 mg tablet 75 mg PO DAILY #90 tabs 05/20/23 06/30/23 nirmatrelvir 300 mg (150 mg See Rx Instructions PO .COMPLEX 06/30/23 x2)-ritonavir 100 mg tablet,dose #30 dose pk pack (Paxlovid) Previous Rx's Medication Instructions Recorded aspirin 81 mg capsule 81 mg PO DAILY #90 caps 02/16/23 pyridostigmine bromide 60 mg tablet See Rx Instructions PO BID #60 tabs 02/16/23 compr.stocking,knee,long,small #12 ea 03/03/23 lisinopril 10 mg tablet 10 mg PO HS #90 tabs 03/03/23 atorvastatin 20 mg tablet 20 mg PO QHS #90 tabs 03/30/23 citalopram 10 mg tablet 10 mg PO DAILY #30 tabs 05/20/23 clopidogrel 75 mg tablet 75 mg PO DAILY #90 tabs 05/20/23 nirmatrelvir 300 mg (150 mg See Rx Instructions PO .COMPLEX 06/30/23 x2)-ritonavir 100 mg tablet,dose #30 dose pk pack (Paxlovid) Allergies Allergy/AdvReac Type Severity Reaction Status Date / Time Penicillins Allergy Unknown Skin Rash Verified 06/30/23 10:50 General Stated Complaint: Fall/Non TraumaCriteria HORTENCIA: 2 Review of Systems Narrative: see hpi PFSH All Active Problems (Updated 06/30/23 @ 14:32 by Radha Gandhi MD) Hyponatremia (Acute) COVID (Acute) Labile mood (Acute) Raynaud's disease (Acute) Dysarthria (Acute) CVA (cerebral vascular accident) (Acute) Orthostatic hypotension (Chronic) negative event monitor Involuntary jerky movements (Chronic) left leg Essential hypertension (Chronic) Memory changes (Chronic) Right shoulder pain (Chronic) Sensorineural hearing loss (SNHL) of both ears (Chronic) Urgency incontinence (Chronic 07/17/15) Tubular adenoma (Chronic) 11/19/14; DR. TRUJILLO 2020, tubular adenoma X 2 rec only prn Rectocele (Chronic) Mitral valve regurgitation (Chronic 04/03/13) Generalized osteoarthrosis (Chronic) Heberden's nodes and bilateral knee pain Cystocele, midline (Chronic) repair 2002, not succcessful Medical History Breast implant status 08/2021, s/p removal at [facility] [place] Chest pain +ETT; neg. MPI DVT (deep venous thrombosis) 09/2021-associated with PE, postoperatively Hypertension Malignant neoplasm of female breast (06/10/88) 1985-right; bilateral mastectomy and reconstruction Pulmonary emboli 09/2021-bilateral, diagnosed at [facility],. occurred Postoperatively, treated with Eliquis, plan 3-month course Restless legs syndrome (~09/2022) Diagnosed on sleep study September 2022. No treatment, asymptomatic. Surgical History S/P colonoscopy (~03/26/21) 11/19/14 Cataract extraction status, right eye (~05/24/18) Cataract extraction status, left eye (~06/14/18) Tonsillectomy Abdominal hysterectomy (~2002) Breast, Mastectomy Bilateral Augmentation mammoplasty (~1986) S/P mastectomy for breast cancer Bilateral salpingectomy with oophorectomy (~2002) Appendectomy AGE 16 Family History Mother , AGE 54 Neoplasm BREAST Father , AGE 59 Neoplasm LYMPHNODE SARCOMA Sister Neoplasm CERVIX/ RIGHT LUNG Brother , AGE 65 Neoplasm LUNG Brother Heart disease 4 [employer] Brother No problems noted. Sister Diabetes Neoplasm AGE 52 AND 69 BREAST Son Asthma Daughter Depression Nephew Primary cancer of bone marrow Paternal family history Alzheimer disease Maternal Family history Cancer 8 family members Maternal Grandfather , AGE 52 SURGICAL COMPLICATIONS No problems noted. Paternal Grandfather , AGE 64 Lung cancer Maternal Grandmother , AGE 58 Cancer Paternal Grandmother , AGE 81 OLD AGE No problems noted. Social History (Updated 04/15/23 @ 10:09 by Jani Hess) Smoking/Tobacco Use Status: Never Second Hand Exposure: Yes Smoking risk assessment performed?: Yes Alcohol Intake: current Alcohol Intake frequency: holidays/special occasions only Drug use: Never Substance use type: does not use Counseling given: Yes Counseling provided: none Caregiver/Support person: No Household members: spouse Housing: house Number of Children: 2 number of grandchildren: 0 Communication Needs: None Do you need help understanding health information?: Never Pets and animals: No Sexually active: No Do you think of yourself as: straight/heterosexual Current gender identity: female What is your relationship status?: How often do you talk on the phone with friends or family?: twice per week How often do you get together with friends or relatives?: once per week How often do you attend roman catholic or druze services?: 4 or more times per year Do you belong to any clubs or organized social groups?: no Panel score (0-1 are the most socially isolated patients): 3 What type of physical activity do you participate in: walking Duration: 15-30 minutes/day Frequency: daily Audrey/Baptism: Anabaptist Special audrey needs: No Seatbelt use: always Drive intox or ride w/intox funeral car driver: No Do you feel safe at home: Yes Do you feel safe in your relationship?: Yes Exam Narrative Exam Narrative: The patient is a thin female with mild dysarthria and obvious moderate right hemiparesis. She is alert and oriented x 4. She is mildly hypertensive. She is not tachycardic tachypneic or febrile. Her room air O2 sat is between 93 and 97%. She does not appear dyspneic at rest and is able to speak in full sentences. She does not appear toxic. Const General: cooperative, comfortable, no acute distress, well developed, well groomed and well hydrated Nutritional Appearance: thin Orientation: alert, awake, oriented x3, oriented to person, oriented to place and oriented to time Limitations: physical limitations (Mild dysarthria) [facility] Head: normal to inspection, normocephalic, atraumatic and other (No hemotympanum otorrhea or rhinorrhea Doan sign or raccoon's eyes) Ears: hearing grossly normal bilaterally, external ears normal, mastoids normal and other (No hemotympanum. Scar on the right TM.) General nose exam: external nose normal, nares normal and no nasal discharge Face and sinus: normal facial exam, sinuses nontender, face symmetric and other (No gross facial droop.) Mouth: oral mucosae normal, lip normal, tongue normal, oropharynx normal, moist mucous membranes, normal tongue and other (Normal phonation. The patient is handling secretions.) Teeth and gingiva: other (Posterior pharynx reveals no swelling erythema or exudates. ) Throat: posterior oropharynx normal, uvula midline and other (Patient is status post tonsillectomy.) Eyes General: appearance normal, both eyes and all related structures Eyelids: eyelids normal Conjunctivae: conjunctivae normal Sclera: sclerae normal Cornea: corneas normal Pupils: PERRL EOM: EOM intact bilaterally and No nystagmus Other: Bilateral lens implants. Neck Neck: normal visual inspection, full ROM, no lymphadenopathy, no meningeal signs, trachea midline, supple, nontender, no tracheal deviation, no JVD and other (No midline tenderness or bony crepitus. No swelling.) Carotids: no bruits Lymphatic: no lymphadenopathy noted Chest Chest: normal palpation of entire chest wall, no crepitus, no localized rib tenderness, no tenderness and other (Bilateral breast augmentation.) Other: No subcutaneous emphysema, bony crepitus or point tenderness. Resp Effort & Inspection: normal respiratory effort, able to speak in complete sentences, normal respiratory pattern, no audible wheezes, cough Quality of cough: dry, no nasal flaring, no paradoxical thoraco-abdom movements, no pursed lip breathing, no respiratory distress, no retractions, no segmental paradox chest wall movement, no stridor, not tachypneic, no tracheal deviation, no tripod positioning, no use of accessory muscles, No prolonged expiratory phase and other (Normal inspiratory to expiratory ratio.) Auscultation: clear to auscultation bilaterally, no rales, no rhonchi, no wheezes and no rubs Tactile Fremitus: tactile fremitus absent Cardio Jugular venous pressure: no JVD Palpation: normal PMI Rate: regular rate Rhythm: regular rhythm Heart Sounds: S1 normal, S2 normal, no gallops, no murmurs and no rubs GI Inspection: normal to inspection, no abdominal wall ecchymosis and non-distended Palpation: soft, no hepatosplenomegaly, no guarding, no splenomegaly and tender in the LUQ Auscultation: normal bowel sounds General: No CVA tenderness Back/Spine/Pelvis Back: no CVA tenderness, No ecchymosis, No back tenderness and No Nolasco-Robles sign present Cervical Spine: normal cervical lordosis, cervical ROM normal, No cervical muscular tenderness, No pain with cervical ROM, No cervical spasm, No cervical spinal tenderness, No step off deformity and No cervical ROM abnormal Thoracic/Lumbar Spine: thoracic and lumbar spine normal to inspection, thoraco-lumbar ROM normal, No thoracic spinal tenderness, No lumbar spinal tenderness and No straight leg raise positive Pelvis: no pain with anterior-posterior compression, no pain with lateral compression, no buttock tenderness and no buttock swelling Sacrum: no tenderness Coccyx: no tenderness Skin General skin exam: no rashes or lesions noted, turgor normal, no petechiae, no purpura and other (Skin is normal for ethnicity.) Lesions: no lesions Rashes: no rashes Trauma: no lacerations or abrasions Wounds: no wounds Neuro General: patient alert, patient awake, patient oriented x3, no meningeal signs and CN's II-XI intact bilaterally Cranial Nerves: CN's II-XI intact bilaterally, PERRL, accommodation normal, EOM intact bilaterally, no nystagmus, facial strength normal, tongue midline, hearing normal and no nystagmus Cognition: normal cognition Speech: abnormal speech (Mild dysarthria) Motor: other (Mild right upper and lower extremity weakness.) Sensory Exam: no sensory deficits noted DTR's: Rt Biceps: 2+, Lt Biceps: 2+, Rt Patellar: 2+, Lt Patellar: 2+, Rt Ankle: 1+ and Lt Ankle: 1+ Coordination: Romberg test normal Extrem General: normal to inspection, capillary refill normal, no clubbing, cyanosis or edema and no calf tenderness Other: As above. No bony crepitus or deformities no significant pedal edema. Psych Appearance: grossly normal Affect: normal affect Attitude: cooperative Thought Process: normal Thought Content: normal Insight: insight good Judgment: judgment good Other: The patient appears to have capacity make medical decisions. Critical Care Time Critical Care Time Critical Care Time: Yes Total Critical Care Time: 52 Attestation: This includes time at the bedside, review of radiology, EKG old records and reassessment of the patient. This includes time speaking with her and discussing results with the patient.
--- NOTE | 2023-06-30 11:15 | RT.EKG_ITS ---
APPROVED REPORT Exam: Resting ECG Reason for Exam: Fall, weakness Patient Location: E HR:70 bpm ECG Measurements Heart Rate 70 AXIS MI 252 P 72 QRSd 80 QRS 76 QT 388 T 84 QTc 419 Conclusion Sinus rhythm...normal P axis, V-rate 60- 99 Prolonged MI interval...MI >220, V-rate 50- 90 Consider left ventricular hypertrophy...(S V1+R V5/V6) >3.25mV Nonspecific T abnormalities, lateral leads...T <-0.10mV, I aVL V5 V6 no significant changes from previous, no stemi
[2023-06-30 11:35] LABS: Abs Immature Grans 0.03 10^3/uL (0.0-0.06); Absolute Basophil Count 0.01 10^3/uL (0.0-0.2); Absolute Lymphocyte Count 0.24 10^3/uL (1.2-3.4); Absolute Monocyte Count 0.59 10^3/uL (0.1-0.8); Absolute Neutrophil Count 5.45 10^3/uL (1.2-6.7); Basophils % 0.2; HCT 39.9 % (36.0-46.0); HGB 13.3 g/dL (11.2-15.7); Immature Grans % 0.5; Lymphocytes % 3.8; MCH 30.4 pg (27.0-33.0); MCHC 33.3 % (32.0-36.0); MCV 91 fL (80-95); MPV 10.2 fL (8.0-11.0); Monocytes % 9.3; Neutrophils % 86.2; Platelet Count 182 10^3/uL (130-400); RBC 4.37 10^6/uL (3.93-5.22); RDW 12.3 % (11.7-14.6); RDW-SD 40.9 fL; WBC 6.32 10^3/uL (4.4-10.8)
--- NOTE | 2023-06-30 11:45 | DI.CT_ITS ---
Exam(s) CT HEAD CERVICAL SPINE WO EXAM: CT HEAD CERVICAL SPINE WO CLINICAL HISTORY: fell on Plavix. TECHNIQUE: Imaging Protocol: Axial computed tomography images with coronal and sagittal reformatted images were created and reviewed COMPARISON: CT CT HEAD - STROKE PROTOCOL from 02/14/2023 MR MR BRAIN WO/W from 02/15/2023 FINDINGS: BRAIN: There are no skull fractures nor fluid in the visualized paranasal sinuses. There is no evidence of intracranial hemorrhage, mass effect, or shift of midline structures. There are no extra-axial fluid collections. The ventricles are not enlarged or shifted and there is no blo od within the ventricular system nor within the basal cisterns. There is an area of abnormal hypodensity in left basal ganglia and left periventricular white matter consistent with interval significant ischemic event when compared to prior CT scan of February 2023. th is is in addition to moderate amount of bilateral periventricular hypodensity consistent with chronic small vessel disease. CERVICAL SPINE: There is no evidence of fracture nor listhesis. No significant prevertebral soft tissue swelling. Multilevel moderate disc space narrowing. There is no significant facet joint malalignment. No significant osseous lesions evident. IMPRESSION: No acute intracranial findings on this noninfused CT scan of the brain.Nonacute appearing lacunar inf arct left basal ganglia which/left periventricular white matter. This was discussed on brain MRI barak dy of 02/15/2023. there is no evidence of intracranial hemorrhage, intra or extra-axial. No evidence of cervical spine fracture, malalignment, nor acute compromise of the cervical spinal can al. Called by myself to ER provider. RADIATION DOSE DELIVERED: Total DLP DATA REPOSITORY: All CT scans at this facility are submitted to the National Radiology Data Registry (NRDR) Dose Index Registry (DIR) with the [employer] (ACR). RADIATION OPTIMIZATION: All CT scans at this facility use at least one of these dose optimization te chniques: automated exposure control; mA and/or kV adjustment per patient size (includes targeted exa ms where dose is matched to clinical indication); or iterative reconstruction.
--- NOTE | 2023-06-30 11:45 | DI.CT_ITS ---
Exam(s) CT CHEST/ABD/PEL W EXAM: CT CHEST/ABD/PEL W CLINICAL HISTORY: trauma on plavix. TECHNIQUE: Imaging Protocol: Axial computed tomography images with coronal and sagittal reformatted images were created and reviewed CONTRAST MATERIAL: Intravenous: Omnipaque 350 Contrast volume:100 ml Oral: None COMPARISON: CT CT BRAIN NECK CTA from 02/13/2023 FINDINGS: CHEST: LUNGS: No evidence of infiltrate nor lung contusion nor pleural effusions and no pneumothorax. No si gnificant incidental pulmonary nodules.. No findings in the trachea and mainstem bronchi.. MEDIASTINUM: No evidence of sternal fracture or mediastinal hematoma. Small nodule noted in the left thyroid lobe.No hilar nor mediastinal adenopathy. No axillary adenopathy. CARDIAC: Mild cardiomegaly. No pericardial effusion.Caliber of the thoracic aorta is within normal l imits. OSSEOUS: No significant osseous lesions.No rib nor vertebral fractures identified. No sternal fractu re.. OTHER: There are intact appearing bilateral breast implants. ABDOMEN: There is no ascites. LIVER: No evidence of laceration. No incidental ominous liver lesions evident. GALLBLADDER/BILIARY: No obvious gallbladder pathology. CBD is not dilated. PANCREAS: No evidence of pancreatic mass nor dilatation of the pancreatic duct. SPLEEN: Spleen size normal. No lacerations nor significant lesions. Splenic and portal veins are pa tent. ADRENALS: There are no significant adrenal masses. KIDNEYS: No focal findings. No lacerations.. No cysts evident. ABDOMINAL AORTA: Heavily calcified-atherosclerotic. Mild fusiform infrarenal dilatation with maximum external diameter less than 2 cm. Common iliac arteries are also calcified but not significantly en larged. LYMPH NODES: There is no retroperitoneal nor paraaortic adenopathy. ABDOMINAL WALL: No evidence of significant anterior abdominal wall nor inguinal hernia. GI: There is abundant fecal material in the rectosigmoid and rectum. Rectal diameter is 8 cm. No parnell rrounding fat streaking nor abnormal fluid collection. PELVIS: LYMPH NODES: There is no intrapelvic nor inguinal adenopathy. GI: No evidence of appendicitis.No evidence of sigmoid diverticulitis. URINARY BLADDER: Mildly distended. REPRODUCTIVE: Uterus surgically absent. No abnormal adnexal masses. OSSEOUS: Benign-appearing sclerotic density in left iliac bone which is probably an incidental bone i sland. No lytic nor blastic lesions identified. No fractures evident. Advanced chronic disc space narrowing at L4-5 level noted. No listhesis. IMPRESSION: 1. No significant acute trauma sequelae in the chest, abdomen, and pelvis. 2. Other findings as above. RADIATION DOSE DELIVERED: Total DLP DATA REPOSITORY: All CT scans at this facility are submitted to the National Radiology Data Registry (NRDR) Dose Index Registry (DIR) with the [employer] (ACR). RADIATION OPTIMIZATION: All CT scans at this facility use at least one of these dose optimization te chniques: automated exposure control; mA and/or kV adjustment per patient size (includes targeted exa ms where dose is matched to clinical indication); or iterative reconstruction.
[2023-06-30 11:53] LABS: PTT Activated 22.7 sec (23.6-32.8)
[2023-06-30 12:01] LABS: ALT 38 U/L (14-59); AST 32 U/L (15-37); Albumin 3.7 g/dL (3.4-5.0); Alkaline Phosphatase 89 U/L (46-116); Anion Gap 5.7 mmol/L (3-11); BUN 11 mg/dL (7-18); Bilirubin, Total 0.4 mg/dL (0.2-1.0); CO2 30.3 mmol/L (21.0-32.0); CREATININE 0.8 mg/dL (0.55-1.02); Calcium 9.5 mg/dL (8.5-10.1); Chloride 94 mmol/L (98-107); Estimated GFR 73.52 (mL/min/1.73m2); Glucose 143 mg/dL (74-106); Potassium 3.8 mmol/L (3.5-5.1); Sodium 130 mmol/L (136-145); Total Protein 7.2 g/dL (6.4-8.2); Troponin I < 50 ng/L (<or=60)
[2023-06-30 12:37] LABS: Influenza A PCR Negative (Negative); Influenza B PCR Negative (Negative); RSV PCR Negative (Negative)
[2023-06-30 12:46] LABS: COVID-19 PCR Positive (Negative); Source Nasopharynx
[2023-06-30] MEDS: Omnipaque 350 MG/ML 100 ML BTL IJ (13:07)
[2023-06-30] MEDS: Normal Saline - Diluent 50 ML VIAL IJ (13:09)
[2023-06-30] MEDS: Acetaminophen 500 MG TAB PO (14:58)
[2023-06-30 15:02] VITALS: BP 180/80; PULSE 76; TEMP 36.7; O2SAT 97
[2023-06-30 15:26] LABS: Troponin I < 50 ng/L (<or=60)
== END 2023-06-30 15:04 | disposition home or self-care (01) ==
PROVIDERS: Emergency Provider Emergency Medicine Emergency Medical Services; PCP Family Medicine
DX: U07.1 COVID-19 (principal); E87.1 Hypo-osmolality and hyponatremia; I69.322 Dysarthria following cerebral infarction; I69.351 Hemiplegia and hemiparesis following cerebral infarction affecting right dominant side; I10 Essential (primary) hypertension; Z86.711 Personal history of pulmonary embolism; Z86.718 Personal history of other venous thrombosis and embolism; Z79.02 Long term (current) use of antithrombotics/antiplatelets; Z79.82 Long term (current) use of aspirin; Z11.52 Encounter for screening for COVID-19; R94.31 Abnormal electrocardiogram [ECG] [EKG]
CPT/HCPCS: 74177; 80053; 87637; 93005; 99285; 70450; 71260; 72125; 84484; 85025; 85730; 93010; 99284; J3490

== ENCOUNTER 2023-07-07 01:51 | Outpatient (CLI) | payer MEDICARE, SELFPAY ==
[2023-07-07 15:55] LABS: Anion Gap 6.2 mmol/L (3-11); BUN 14 mg/dL (7-18); CO2 32.8 mmol/L (21.0-32.0); CREATININE 0.7 mg/dL (0.55-1.02); Calcium 9.5 mg/dL (8.5-10.1); Chloride 102 mmol/L (98-107); Glucose 89 mg/dL (74-106); Potassium 4.6 mmol/L (3.5-5.1); Sodium 141 mmol/L (136-145)
== END 2023-07-07 01:52 | disposition home or self-care (01) ==
LOC: LBO 01:51
PROVIDERS: PCP Family Medicine; Visit Provider Family Medicine
DX: E87.1 Hypo-osmolality and hyponatremia; I10 Essential (primary) hypertension
CPT/HCPCS: 36415; 80048

== ENCOUNTER → 2023-07-29 06:58 | Outpatient (BNVA) | payer MEDICARE, SELFPAY | PROVIDERS: PCP Family Medicine; Referring Provider Family Medicine; Visit Provider Psychiatry & Neurology Neurology | DX: R41.3 Other amnesia (principal); I63.9 Cerebral infarction, unspecified; R47.1 Dysarthria and anarthria; R45.86 Emotional lability | CPT/HCPCS: 99214 ==

== ENCOUNTER 2023-08-11 04:26 | Outpatient (CLI) | payer MEDICARE, SELFPAY ==
[2023-08-11 13:32] LABS: Anion Gap 3.6 mmol/L (3-11); BUN 15 mg/dL (7-18); CO2 32.4 mmol/L (21.0-32.0); CREATININE 0.8 mg/dL (0.55-1.02); Calcium 9.5 mg/dL (8.5-10.1); Chloride 102 mmol/L (98-107); Estimated GFR 73.06 (mL/min/1.73m2); Glucose 107 mg/dL (74-106); Potassium 3.9 mmol/L (3.5-5.1); Sodium 138 mmol/L (136-145)
== END 2023-08-11 04:27 | disposition home or self-care (01) ==
LOC: LBO 04:26
PROVIDERS: PCP Family Medicine; Visit Provider Family Medicine
DX: I10 Essential (primary) hypertension (principal); E87.1 Hypo-osmolality and hyponatremia
CPT/HCPCS: 36415; 80048

== ENCOUNTER → 2023-08-17 09:06 | Outpatient (BNVA) | payer MEDICARE, SELFPAY | PROVIDERS: PCP Family Medicine; Referring Provider Family Medicine; Visit Provider Podiatrist | DX: B35.1 Tinea unguium (principal); L60.3 Nail dystrophy; L85.9 Epidermal thickening, unspecified; I73.00 Raynaud's syndrome without gangrene | CPT/HCPCS: 11720; 99213 ==

== ENCOUNTER → 2023-11-25 10:32 | Outpatient (BNVA) | payer MEDICARE, SELFPAY | PROVIDERS: PCP Family Medicine; Referring Provider Family Medicine; Visit Provider Psychiatry & Neurology Neurology | DX: N39.41 Urge incontinence (principal); I10 Essential (primary) hypertension; I63.9 Cerebral infarction, unspecified; I95.1 Orthostatic hypotension; R45.86 Emotional lability | CPT/HCPCS: 99214 ==

== ENCOUNTER → 2023-12-14 09:27 | Outpatient (BNVA) | payer MEDICARE, SELFPAY | PROVIDERS: PCP Family Medicine; Referring Provider Family Medicine; Visit Provider Podiatrist | DX: B35.1 Tinea unguium (principal); L60.3 Nail dystrophy; I73.00 Raynaud's syndrome without gangrene; Q82.8 Other specified congenital malformations of skin; L85.9 Epidermal thickening, unspecified | CPT/HCPCS: 17110 ==

== ENCOUNTER 2024-04-05 02:34 | Outpatient (CLI) | payer MEDICARE, SELFPAY ==
[2024-04-05 12:26] LABS: Anion Gap 6.8 mmol/L (3-11); BUN 17 mg/dL (7-18); CO2 30.2 mmol/L (21.0-32.0); CREATININE 0.9 mg/dL (0.55-1.02); Calcium 9.3 mg/dL (8.5-10.1); Chloride 98 mmol/L (98-107); Estimated GFR 63.43 (mL/min/1.73m2); Glucose 75 mg/dL (74-106); Magnesium 2.1 mg/dL (1.8-2.4); Potassium 3.7 mmol/L (3.5-5.1); Sodium 135 mmol/L (136-145)
== END 2024-04-05 02:35 | disposition home or self-care (01) ==
LOC: LOS 02:34
PROVIDERS: PCP Family Medicine; Visit Provider Family Medicine
DX: I10 Essential (primary) hypertension (principal)
CPT/HCPCS: 36415; 80048; 83735

== ENCOUNTER 2024-05-18 02:55 | Outpatient (CLI) | payer MEDICARE, SELFPAY ==
--- NOTE | 2024-05-18 07:30 | DI.DEXA_ITS ---
Exam(s) XR DEXA BONE DENSITY W/WO ULYSSES EXAM: XR DEXA BONE DENSITY W/WO ULYSSES CLINICAL HISTORY: Screening,menopausal disorder,n95.9 TECHNIQUE: COMPARISON: No exams were available for comparison FINDINGS: Lateral Spine Image: Unremarkable. No compression deformities identified. Left hip: Total T-Score: -3.1 Total Z-Score: -0.8 T- and Z-scores: Findings are consistent with osteoporosis. Lumbar Spine: Total T-Score: -2.2 Total Z-Score: 0.6 T- and Z-scores: Findings are consistent with osteopenia. There is osteoporosis in the L3 vertebral body with a T-score of -2.5. Left forearm: Total T-score:-3.1 Total Z-score: 0.3 T and Z-score is: Findings are consistent with osteoporosis. IMPRESSION: Osteoporosis is seen in the left hip, left forearm and lumbar spine.
== END 2024-05-18 03:15 ==
LOC: DI 02:55
PROVIDERS: PCP Family Medicine; Visit Provider Family Medicine
DX: N95.9 Unspecified menopausal and perimenopausal disorder (principal); M81.0 Age-related osteoporosis without current pathological fracture
CPT/HCPCS: 77080

== ENCOUNTER 2024-06-02 02:37 | Outpatient (CLI) | payer MEDICARE, SELFPAY ==
[2024-06-02 14:42] LABS: Vitamin D 25 Total 27.7 ng/mL (30-100)
== END 2024-06-02 02:38 | disposition home or self-care (01) ==
LOC: LOS 02:37
PROVIDERS: PCP Family Medicine; Visit Provider Family Medicine
DX: M81.0 Age-related osteoporosis without current pathological fracture (principal)
CPT/HCPCS: 36415; 82306

== ENCOUNTER → 2024-07-17 10:22 | Outpatient (BNVA) | payer MEDICARE, SELFPAY | PROVIDERS: PCP Family Medicine; Referring Provider Family Medicine; Visit Provider Podiatrist | DX: B35.1 Tinea unguium (principal); L60.3 Nail dystrophy; L85.9 Epidermal thickening, unspecified; I73.00 Raynaud's syndrome without gangrene; Q82.8 Other specified congenital malformations of skin | CPT/HCPCS: 17110 ==

== ENCOUNTER 2024-11-07 00:06 | Outpatient (CLI) | payer MEDICARE, SELFPAY ==
--- NOTE | 2024-11-07 06:45 | DI.US_ITS ---
Exam(s) US BREAST LT COMPLETE US BREAST RT COMPLETE EXAM: US BREAST LT COMPLETE CLINICAL HISTORY: mass in breast superior to implane,h/o bilat mastectomy,deformity of TECHNIQUE: Ultrasound left breast performed using standard protocol. COMPARISON: CT CT CHEST/ABD/PEL W from 06/30/2023 US US BREAST RT COMPLETE from 11/07/2024 FINDINGS: Right breast: There is a saline implant which appears intact. Adjacent to the implant, in the 10 o'c lock position, there is a 13 x 4 x 7 millimeter lymph node which corresponds to the palpable abnormal ity. It maintains a fatty hilum and does not have suspicious features. Left breast: In the 10 o'clock position, adjacent to the implant, there is a 5 x 4 x 5 millimeter hyp oechoic lesion which could represent a cyst versus lymph node. No solid masses identified. IMPRESSION: No sonographically suspicious finding. Clinical correlation recommended. BI-RADS Category 2 - Benign Findings DATA REPOSITORY:
== END 2024-11-07 00:26 ==
LOC: DI 00:06
PROVIDERS: PCP Family Medicine; Visit Provider Family Medicine
DX: N65.0 Deformity of reconstructed breast (principal); M95.4 Acquired deformity of chest and rib; C50.919 Malignant neoplasm of unspecified site of unspecified female breast
CPT/HCPCS: 76642

== ENCOUNTER → 2024-11-15 10:07 | Outpatient (BNVA) | payer MEDICARE, SELFPAY | PROVIDERS: PCP Family Medicine; Referring Provider Family Medicine; Visit Provider Podiatrist | DX: L60.3 Nail dystrophy (principal); B35.1 Tinea unguium; L85.9 Epidermal thickening, unspecified; I73.00 Raynaud's syndrome without gangrene; Q82.8 Other specified congenital malformations of skin | CPT/HCPCS: 99213 ==

== ENCOUNTER → 2024-11-23 11:01 | Outpatient (BNVA) | payer MEDICARE, SELFPAY | PROVIDERS: PCP Family Medicine; Referring Provider Family Medicine; Visit Provider Psychiatry & Neurology Neurology | DX: I10 Essential (primary) hypertension (principal); N39.41 Urge incontinence; I63.9 Cerebral infarction, unspecified; I95.1 Orthostatic hypotension; R45.86 Emotional lability | CPT/HCPCS: 99214 ==

== ENCOUNTER → 2024-12-07 09:47 | Outpatient (BNVA) | payer MEDICARE, SELFPAY | PROVIDERS: PCP Family Medicine; Referring Provider Family Medicine; Visit Provider Psychiatry & Neurology Neurology | DX: I10 Essential (primary) hypertension (principal); N39.41 Urge incontinence; I63.9 Cerebral infarction, unspecified; I95.1 Orthostatic hypotension; R45.86 Emotional lability | CPT/HCPCS: 99214 ==

== ENCOUNTER 2024-12-21 09:13 | Outpatient (CLI) | payer MEDICARE, SELFPAY | END 2024-12-21 09:14 | disposition home or self-care (01) | PROVIDERS: PCP Family Medicine; Referring Provider Psychiatry & Neurology Neurology; Visit Provider Psychiatry & Neurology Neurology | DX: I63.9 Cerebral infarction, unspecified (principal) | CPT/HCPCS: 93246 ==

== ENCOUNTER 2024-12-24 10:01 | Emergency (ER) | payer MEDICARE, SELFPAY ==
[2024-12-24] VITALS (12 sets, daily range): BP systolic 105–110; BP diastolic 61–65; PULSE 50–73; RESP 0–17; TEMP 36.4–36.5; O2SAT 95–98
--- NOTE | 2024-12-24 11:00 | DI.RAD_ITS ---
Exam(s) XR PELVIS AP EXAM: XR PELVIS AP CLINICAL HISTORY: right glute pain post fall. TECHNIQUE: 2D digital imaging was performed. COMPARISON: No exams were available for comparison FINDINGS: Single AP view of the pelvis No evidence of pelvic nor hip fracture. No hip joint space narrowing. Sacroiliac joints appear unremarkable. Bone density normal. No osseous lesions. Incidentally noted is mild narrowing of the right-side of the L3-4 disc space. IMPRESSION: No acute osseous findings in the hips and pelvis. DATA REPOSITORY: RADIATION DOSE DELIVERED:
--- NOTE | 2024-12-24 11:00 | DI.CT_ITS ---
Exam(s) CT HEAD CERVICAL SPINE WO EXAM: CT HEAD CERVICAL SPINE WO CLINICAL HISTORY: HI on plavix. TECHNIQUE: Imaging Protocol: Axial computed tomography images with coronal and sagittal reformatted images were created and reviewed COMPARISON: CT CT HEAD CERVICAL SPINE WO from 06/30/2023 FINDINGS: BRAIN: There are no skull fractures nor fluid in the visualized paranasal sinuses. There is no evidence of intracranial hemorrhage, mass effect, or shift of midline structures. There are no extra-axial fluid collections. The ventricles are not enlarged or shifted and there is no blood within the ventricular system nor within the basal cisterns. There is symmetrical periventricular hypodensity consistent with chronic small vessel disease. No evidence of asymmetric territorial infarct. CERVICAL SPINE: There is no evidence of fracture nor listhesis. No significant prevertebral soft tissue swelling. There is moderate chronic disc space narrowing at C4-5 and C5-6 and C6-7 levels. There is minimal facet arthropathy. There is no significant facet joint malalignment. No significant osseous lesions evident. There is corticated calcification in the supraspinous ligament at C4-5 levels. There are no acute spinous process fractures evident. IMPRESSION: No acute intracranial findings on this noninfused CT scan of the brain.Chronic small-vessel white matter ischemic changes. No evidence of acute infarct nor intracranial hemorrhage. No evidence of acute cervical spine fracture, malalignment, nor acute compromise of the cervical spinal canal. Multilevel chronic degenerative disc disease. Preliminary virtual Radiology report was reviewed. RADIATION DOSE DELIVERED: 1,203.79mGy.cm Total DLP DATA REPOSITORY: All CT scans at this facility are submitted to the National Radiology Data Registry (NRDR) Dose Index Registry (DIR) with the [employer] ([employer]). RADIATION OPTIMIZATION: All CT scans at this facility use at least one of these dose optimization techniques: automated exposure control; mA and/or kV adjustment per patient size (includes targeted exams where dose is matched to clinical indication); or iterative reconstruction.
--- NOTE | 2024-12-24 11:00 | DI.RAD_ITS ---
Exam(s) XR LUMBAR SPINE COMPLETE EXAM: XR LUMBAR SPINE COMPLETE CLINICAL HISTORY: back pain and right buttock pain post fall. TECHNIQUE: 2D digital imaging was performed. COMPARISON: CR XR DEXA BONE DENSITY W/WO ULYSSES from 05/18/2024 FINDINGS: Five views. Age-related osteopenia but no evidence fracture, listhesis, nor pars defects. There is chronic disc space narrowing at L4-5 level and mild disc space narrowing at L3-4. No listhesis. There is facet arthropathy at the lower 3 levels. There is mild scoliosis convex left. No osseous lesions. Sacroiliac joints appear age-appropriate. IMPRESSION: Some degenerative changes described above. No acute fracture or listhesis. DATA REPOSITORY: RADIATION DOSE DELIVERED:
--- NOTE | 2024-12-24 11:47 | DI.VRAD_ITS ---
PROCEDURE INFORMATION: Exam: CT Head Without Contrast Exam date and time: 12/24/2024 11:14 AM Age: 84 years old Clinical indication: Other: Hi on plavix TECHNIQUE: Imaging protocol: Computed tomography of the head without contrast. Radiation optimization: All CT scans at this facility use at least one of these dose optimization techniques: automated exposure control; mA and/or kV adjustment per patient size (includes targeted exams where dose is matched to clinical indication); or iterative reconstruction. COMPARISON: CT HEAD CERVICAL SPINE WO 06/30/2023 12:57 PM FINDINGS: Brain: There are bilateral periventricular white matter and centrum semiovale hypodensities, consistent with chronic ischemic small vessel disease. Age related diffuse parenchymal volume loss. Dystrophic calcifications in the cerebellum. No recent infarct, intracranial bleed or mass effect. Cerebral ventricles: Ex vacuo dilatation of the ventricles. Paranasal sinuses: Mild mucosal disease of bilateral maxillary sinuses. Mastoid air cells: Visualized mastoid air cells are well aerated. Orbital cavities: Post bilateral cataract surgery. Bones: Unremarkable. No acute fracture. Soft tissues: Unremarkable. IMPRESSION: No large territorial infarct or intracranial bleed. PROCEDURE INFORMATION: Exam: CT Cervical Spine Without Contrast Exam date and time: 12/24/2024 11:14 AM Age: 84 years old Clinical indication: Other: Hi on plavix TECHNIQUE: Imaging protocol: Computed tomography of the cervical spine without contrast. Radiation optimization: All CT scans at this facility use at least one of these dose optimization techniques: automated exposure control; mA and/or kV adjustment per patient size (includes targeted exams where dose is matched to clinical indication); or iterative reconstruction. COMPARISON: CT HEAD CERVICAL SPINE WO 06/30/2023 12:57 PM FINDINGS: Bones: There are ossific densities in the ligamentum nuchae, consistent with remote trauma. The cervical spine demonstrates mild degenerative changes at multiple levels. No acute fracture, compression deformity or spondylolisthesis. Lungs: Bilateral apical fibrotic changes. Vasculature: There is moderate atherosclerotic calcification of the carotid arteries. Soft tissues: Unremarkable. IMPRESSION: No acute posttraumatic changes in the cervical spine. Dictated and Authenticated by: Clovis Fine MD. Orderin Tacos Barraza MD
--- NOTE | 2024-12-24 12:10 | DI.VRAD_ITS ---
PROCEDURE INFORMATION: Exam: XR Pelvis Exam date and time: 12/24/2024 11:31 AM Age: 84 years old Clinical indication: Other: Right glute pain post fall TECHNIQUE: Imaging protocol: Radiologic exam of the pelvis. Views: 1 or 2 view. COMPARISON: CT CHEST/ABD/PEL W 06/30/2023 1:04 PM FINDINGS: Bones/joints: There are mild degenerative changes of the hip joints. There are mild degenerative changes of the sacroiliac joints. The lumbar spine demonstrates mild degenerative changes. Bone mineralization is age-appropriate. There is no evidence of fracture. No evidence of dislocation. Soft tissues: No radiopaque foreign body present. There is no significant soft tissue swelling present. Gastrointestinal tract: There is mild increased colonic fecal content. The colon is nondilated. These findings suggest a mild degree of constipation. Clinical correlation recommended. IMPRESSION: No acute osseous abnormality. Dictated and Authenticated by: Easton Plummer MD. Orderin Tacos Barraza MD
--- NOTE | 2024-12-24 12:13 | DI.VRAD_ITS ---
PROCEDURE INFORMATION: Exam: XR Lumbosacral Spine Exam date and time: 12/24/2024 11:32 AM Age: 84 years old Clinical indication: Other: Back pain right buttock pain post fall TECHNIQUE: Imaging protocol: Radiologic exam of the lumbosacral spine. Views: 4 or 5 views. COMPARISON: CR XR PELVIS AP 12/24/2024 11:31 AM FINDINGS: Bones/joints: There is a mild scoliosis of the thoracolumbar spine convex to the right mild scoliosis of the lower lumbar spine convex to the left. There are mild degenerative changes of the sacroiliac joints. There is no evidence of compression fractures or deformities. Spinal alignment is normal. Narrowing of the intervertebral disc space between L2-L3, L3-L4, L4-L5 and L5-S1. Mild anterior osteophytes present. Mild degenerative changes of the facets bilaterally predominantly at L3-L4, L4-L5 and L5-S1. Soft tissues: Unremarkable. Gastrointestinal tract: There is moderate increased colonic fecal content. The colon is mildly distended. These findings suggest a moderate degree of constipation. Clinical correlation recommended. Vasculature: Moderate to severe calcific atherosclerotic plaque of the aortoiliac segments. IMPRESSION: 1. Degenerative changes of the lumbosacral spine with scoliosis no evidence of acute fracture or subluxation. 2. Constipation Dictated and Authenticated by: Easton Plummer MD. Orderin Tacos Barraza MD
--- NOTE | 2024-12-24 12:20 | NUR.NOTE ---
pt amb to bathroom with cane with baseline gait. awaiting results, family at side.
--- NOTE | 2024-12-24 14:20 | W.ED.GENAD ---
Discharge Plan Disposition Patient Disposition: Home Condition: Stable Discharge Details Clinical Impression: Head injury, Contusion of buttock Primary Care Provider: Diane Fitzgerald ED Provider: Christi Balderrama Home Meds and New Rx's Prescriptions: Continued magnesium 200 mg tablet 250 mg PO DAILY ketoconazole 2 % cream 1 applic topical DAILY Qty: 60 6RF Rx Instructions: Apply to toenails once daily atorvastatin 20 mg tablet 20 mg PO QHS Qty: 90 3RF clopidogrel 75 mg tablet 75 mg PO DAILY Qty: 90 3RF citalopram 10 mg tablet 10 mg PO DAILY Qty: 90 3RF pyridostigmine bromide 60 mg tablet See Rx Instructions PO BID Qty: 90 3RF Rx Instructions: take 30-60mg am and noon as needed for dizziness orally lisinopril 5 mg tablet 5 mg PO BID Qty: 180 3RF Rx Instructions: take at 12 noon and 9pm multivitamin 1 EACH tablet 1 ea PO DAILY [id number] 1 EACH tablet 1 ea PO DAILY alendronate 70 mg tablet 70 mg PO QWEEK Qty: 13 3RF cholecalciferol (vitamin D3) 25 mcg (1,000 unit) capsule 25 mcg PO DAILY Rx Instructions: 06/06/24: per task. -hb aspirin 81 mg tablet 81 mg PO .QOD Rx Instructions: 12/11/24 See task. -hb Discharge Instructions Instructions: Acute Pain, Adult Additional Instructions: Use caution when going from sitting to standing as you have had a head injury take Tylenol as needed for pain you may apply ice to the area on your glue but is bruised Please be reevaluated should you have dizziness or worsening symptoms your tests today including head CT are reassuring Referrals: Diane Fitzgerald MD [Primary Care Provider, Medicine] Discharge Data Discharge Date/Time-TO BE ENTERED AT DEPARTURE: 12/24/24 12:35 HPI General Date/Time Provider Initiated Documentation: 12/24/24 10:31. HPI Narrative: 84-year-old female with Raynaud's and CVA presents after a slip and fall. She slipped and fell backwards onto a yoga mat, landing on her buttocks and then hitting her head. No loss of consciousness. Reports bump on occipital region and bruise on right glute. Related Data Home Medications ?Medication ?Instructions ?Recorded ?Confirmed beabmcq-[id number]-[id number] tablet 1 ea PO DAILY 03/22/13 12/24/24 multivitamin 1 ea PO DAILY 03/22/13 12/24/24 magnesium 200 mg tablet 250 mg PO DAILY to help with 08/11/23 12/24/24 zapping sensation ketoconazole 2 % topical cream 1 applic topical DAILY #60 grams 08/17/23 12/24/24 alendronate 70 mg tablet 70 mg PO QWEEK #13 tabs 05/23/24 12/24/24 cholecalciferol (vitamin D3) 25 25 mcg PO DAILY 06/06/24 12/24/24 mcg (1,000 unit) capsule atorvastatin 20 mg tablet 20 mg PO QHS #90 tabs 07/19/24 12/24/24 citalopram 10 mg tablet 10 mg PO DAILY #90 tabs 07/19/24 12/24/24 clopidogrel 75 mg tablet 75 mg PO DAILY #90 tabs 07/19/24 12/24/24 pyridostigmine bromide 60 mg tablet See Rx Instructions PO BID #90 tabs 07/19/24 12/24/24 aspirin 81 mg tablet 81 mg PO .QOD 12/11/24 12/24/24 lisinopril 5 mg tablet 5 mg PO BID #180 tabs 12/20/24 12/24/24 Previous Rx's ?Medication ?Instructions ?Recorded ketoconazole 2 % topical cream 1 applic topical DAILY #60 grams 08/17/23 alendronate 70 mg tablet 70 mg PO QWEEK #13 tabs 05/23/24 atorvastatin 20 mg tablet 20 mg PO QHS #90 tabs 07/19/24 citalopram 10 mg tablet 10 mg PO DAILY #90 tabs 07/19/24 clopidogrel 75 mg tablet 75 mg PO DAILY #90 tabs 07/19/24 pyridostigmine bromide 60 mg tablet See Rx Instructions PO BID #90 tabs 07/19/24 lisinopril 5 mg tablet 5 mg PO BID #180 tabs 12/20/24 Allergies Allergy/AdvReac Type Severity Reaction Status Date / Time Penicillins Allergy Unknown Skin Rash Verified 12/24/24 10:12 Citalopram Analogues AdvReac Intermediate hyponatremi Verified 12/24/24 10:12 a General Stated Complaint: Fall/Non TraumaCriteria HORTENCIA: 3 Exam Narrative Exam Narrative: General Appearance: Alert and oriented x4. No acute distress. Speaking in complete sentences. Vital signs: Within normal limits. HEENT: Oropharynx patent, uvula midline. Respiratory: Within normal limits. Back, Musculoskeletal: No cervical spine tenderness. Mild tenderness in right glute. Extremities: Neurovascularly intact to bilateral lower extremities. Ambulatory with steady gait. Skin: Warm and dry, no rash. Neurological: Cranial nerves II-XII intact. Other observations: None. Course Vital Signs Vital signs: Vital Signs Temperature 36.4 C 12/24/24 10:06 Pulse 58 L 12/24/24 10:06 Respiratory Rate 16 12/24/24 10:06 Blood Pressure 110/65 12/24/24 10:06 Pulse Oximetry 95 12/24/24 10:06 Temperature 36.5 C 12/24/24 12:33 Temperature Source Oral 12/24/24 10:06 Pulse 56 L 12/24/24 12:33 Pulse 56 L 12/24/24 12:10 Respiratory Rate 16 12/24/24 12:33 Blood Pressure 105/61 12/24/24 12:00 Blood Pressure Mean 75 12/24/24 12:00 Pulse Oximetry 98 12/24/24 12:33 Oxygen Delivery Method Room Air 12/24/24 10:06 Oxygen Flow Rate 0 12/24/24 10:06 Pain Level 3 12/24/24 12:[address] head and cervical spine: no acute abnormality. X-ray pelvis and lumbar spine: no acute abnormality. Initial Assessment: 84-year-old female with history of Raynaud's and CVA, presents after slip and fall onto a yoga mat, landing on buttocks and hitting head. No loss of consciousness. Reports bump on occipital region and bruise on right glute. GCS 15, alert and oriented x4, ambulatory with steady gait, no acute distress, no cervical spine tenderness, neurovascularly intact to bilateral lower extremities, speaking in complete sentences, oropharynx patent, uvula midline, cranial nerves II-XII intact. ED Course: - CT head and cervical spine per radiology interpretation of my review: no acute abnormality. - X-ray of pelvis and lumbar spine per radiology interpretation of my review: no acute abnormality. - Patient discharged home in stable condition with stable vitals. - Reviewed return precautions, patient expressed understanding. Final Assessment: Patient evaluated for fall-related injury with no loss of consciousness. Imaging studies including CT head and cervical spine, and x-ray of pelvis and lumbar spine showed no acute abnormalities. Patient discharged home in stable condition with stable vitals. Clinical Impression: - Fall-related injury Disposition: - Discharge: Patient discharged home in stable condition. - Follow-Up: Reviewed return precautions, patient expressed understanding. MDM Components Evaluation: - Number of Differential Diagnoses or Management Options: Fall-related injury - Amount and Complexity of Data Reviewed: CT head and cervical spine, x-ray of pelvis and lumbar spine - Risk of Complication and Morbidity or Mortality: Low risk based on imaging results and stable condition. [facility] All Active Problems (Updated 12/24/24 @ 12:28 by TINO Oliver) Contusion of buttock (Acute) Head injury (Acute) Stress due to illness of family member (Acute) Chest wall deformity, acquired (Acute) Osteoporosis (Chronic 05/2024) T-score -3.1. Left forearm, -3.1 left hip Porokeratosis (Acute) Hyperkeratosis (Acute) Nail dystrophy (Acute) Onychomycosis (Acute) Labile mood (Acute) Raynaud's disease (Acute) Dysarthria (Acute) CVA (cerebral vascular accident) (Acute) Orthostatic hypotension (Chronic) negative event monitor Involuntary jerky movements (Chronic) left leg Essential hypertension (Chronic) Memory changes (Chronic) Right shoulder pain (Chronic) Sensorineural hearing loss (SNHL) of both ears (Chronic) Urgency incontinence (Chronic 07/17/15) Tubular adenoma (Chronic) 11/19/14; DR. TRUJILLO 2020, tubular adenoma X 2 rec only prn Rectocele (Chronic) Mitral valve regurgitation (Chronic 04/03/13) Generalized osteoarthrosis (Chronic) Heberden's nodes and bilateral knee pain Cystocele, midline (Chronic) repair 2002, not succcessful Medical History Restless legs syndrome (~09/2022) Diagnosed on sleep study September 2022. No treatment, asymptomatic. Hypertension DVT (deep venous thrombosis) 09/2021-associated with PE, postoperatively Pulmonary emboli 09/2021-bilateral, diagnosed at [facility],. occurred Postoperatively, treated with Eliquis, plan 3-month course Breast implant status 08/2021, s/p removal at [facility] Malignant neoplasm of female breast (06/10/88) 1986-right; bilateral mastectomy and reconstruction Chest pain +ETT; neg. MPI Surgical History S/P colonoscopy (~03/26/21) 11/19/14 Cataract extraction status, right eye (~05/24/18) Cataract extraction status, left eye (~06/14/18) Tonsillectomy Abdominal hysterectomy (~2002) Breast, Mastectomy Bilateral Augmentation mammoplasty (~1986) S/P mastectomy for breast cancer Bilateral salpingectomy with oophorectomy (~2002) Appendectomy AGE 16 Family History (Updated 12/20/24 @ 10:32 by Diane Fitzgerald MD) Mother , AGE 54 Neoplasm BREAST Father , AGE 59 Neoplasm LYMPHNODE SARCOMA Sister Neoplasm CERVIX/ RIGHT LUNG Brother , AGE 65 Neoplasm LUNG Brother Heart disease 4 [employer] Brother Cancer Sister Diabetes Neoplasm AGE 52 AND 69 BREAST Son Asthma Daughter Depression Brain cancer diagnosed in [place]; returning to [place] Nephew Primary cancer of bone marrow Paternal family history Alzheimer disease Maternal Family history Cancer 8 family members Maternal Grandfather , AGE 52 SURGICAL COMPLICATIONS Stroke Paternal Grandfather , AGE 64 Lung cancer Maternal Grandmother , AGE 58 Cancer Paternal Grandmother , AGE 81 OLD AGE No problems noted. Social History Smoking/Tobacco Use Status: Never Second Hand Exposure: Yes Smoking risk assessment performed?: Yes Alcohol Intake: current Alcohol Intake frequency: holidays/special occasions only Drug use: Never Substance use type: does not use Counseling given: Yes Counseling provided: none Caregiver/Support person: No Household members: spouse Housing: house Number of Children: 2 number of grandchildren: 0 Communication Needs: None Do you need help understanding health information?: Never Pets and animals: No Sexually active: No Do you think of yourself as: straight/heterosexual Current gender identity: female What is your relationship status?: How often do you talk on the phone with friends or family?: twice per week How often do you get together with friends or relatives?: once per week How often do you attend yazdanism or hoahaoism services?: 4 or more times per year Do you belong to any clubs or organized social groups?: no Panel score (0-1 are the most socially isolated patients): 3 What type of physical activity do you participate in: walking Duration: 15-30 minutes/day Frequency: daily Audrey/Jehovah'S Witness: Alevism Special audrey needs: No Seatbelt use: always Drive intox or ride 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
== END 2024-12-24 12:35 | disposition home or self-care (01) ==
PROVIDERS: Emergency Provider Physician Assistant; PCP Family Medicine
DX: S09.8XXA Other specified injuries of head, initial encounter (principal); S30.0XXA Contusion of lower back and pelvis, initial encounter; I10 Essential (primary) hypertension; I73.00 Raynaud's syndrome without gangrene; Z86.73 Personal history of transient ischemic attack (TIA), and cerebral infarction without residual deficits; Z86.711 Personal history of pulmonary embolism; Z86.718 Personal history of other venous thrombosis and embolism; Z79.02 Long term (current) use of antithrombotics/antiplatelets; Z79.82 Long term (current) use of aspirin; W01.0XXA Fall on same level from slipping, tripping and stumbling without subsequent striking against object, initial encounter; Y93.89 Activity, other specified
CPT/HCPCS: 99284; 70450; 72110; 72125; 72170

== ENCOUNTER 2024-12-27 02:26 | Outpatient (CLI) | payer MEDICARE, SELFPAY ==
--- NOTE | 2024-12-27 12:10 | DI.US_ITS ---
Exam(s) US CAROTID EXAM: US CAROTID CLINICAL HISTORY: recent TIA/stroke,CVA,I63.9. TECHNIQUE: Ultrasound carotids performed using grayscale, color-flow, and spectral Doppler imaging. COMPARISON: US US CAROTID from 07/20/[address] HEAD CERVICAL SPINE WO from 12/24/2024 FINDINGS: RIGHT CAROTID ARTERY: Plaque: There is mild calcific plaque seen in the common carotid artery, proximal internal carotid artery and carotid bulb. Velocity elevation: None. LEFT CAROTID ARTERY: Plaque: There is calcific plaque seen in the common carotid artery, proximal carotid artery and carotid bulb. Velocity elevation: None. VERTEBRAL ARTERIES: Antegrade flow. Measurements: R Bulb: 67.7cm/s PS / 22.9cm/s ED R CCA: 71cm/s PS / 20.6cm/s ED R ECA: 51.7cm/s PS / 7.5cm/s ED R ICA Prox: 41.8cm/s PS / 11cm/s ED R ICA Mid: 72.7cm/s PS / 20.9cm/s ED R ICA Distal: 83.5cm/s PS /26.5cm/s ED R Vert: 49.6cm/s PS / 13.2cm/s ED R SVR: 1.2 R DVR: 1.3 L Bulb: 48.7cm/s PS / 15.4cm/s ED L CCA: 53.2cm/s PS / 15.6cm/s ED L ECA: 63cm/s PS / 8.2cm/s ED L ICA Prox: 53.5cm/s PS / 15.4cm/s ED L ICA Mid: 80.7cm/s PS / 22.5cm/s ED L ICA Distal: 80.7cm/s PS / 23.6cm/s ED L Vert: 40.3cm/s PS / 4.6cm/s ED L SVR: 1.5 L DVR: 1.4 IMPRESSION: No evidence for hemodynamically significant carotid stenosis. Criteria for Carotid Stenosis: Normal: ICA PSV <125 cm/s no plaque or intimal thickening is visible. <50% stenosis: ICA PSV <125 cm/s and plaque or intimal thickening is visible. 50-69% stenosis: ICA PSV is 125-250 cm/s and plaque is visible. >70% stenosis to near occlusion: ICA PSV >250 cm/s with visible plaque and luminal narrowing. DATA REPOSITORY:
== END 2024-12-27 02:46 ==
LOC: DI 02:26
PROVIDERS: PCP Family Medicine; Visit Provider Psychiatry & Neurology Neurology
DX: I63.9 Cerebral infarction, unspecified (principal)
CPT/HCPCS: 93880

== ENCOUNTER → 2025-03-14 09:38 | Outpatient (BNVA) | payer MEDICARE, SELFPAY | PROVIDERS: PCP Family Medicine; Visit Provider Psychiatry & Neurology Neurology | DX: I63.9 Cerebral infarction, unspecified (principal); I95.1 Orthostatic hypotension; I10 Essential (primary) hypertension; N39.41 Urge incontinence; R45.86 Emotional lability | CPT/HCPCS: 99214 ==

== ENCOUNTER 2025-04-30 03:47 | Outpatient (CLI) | payer MEDICARE, SELFPAY ==
[2025-04-30 14:48] LABS: Anion Gap 7.2 mmol/L (3-11); BUN 23 mg/dL (7-18); CO2 30.8 mmol/L (21.0-32.0); Calcium 9.5 mg/dL (8.5-10.1); Chloride 100 mmol/L (98-107); Estimated GFR 85.23 (mL/min/1.73m2); Glucose 106 mg/dL (74-106); Potassium 4.1 mmol/L (3.5-5.1); Sodium 138 mmol/L (136-145)
== END 2025-04-30 03:48 | disposition home or self-care (01) ==
LOC: LOS 03:47
PROVIDERS: PCP Family Medicine; Visit Provider Family Medicine
DX: I10 Essential (primary) hypertension (principal)
CPT/HCPCS: 36415; 80048